=== PATIENT | female | born 1945 | race Caucasian/White ===

== ENCOUNTER 2020-06-08 12:15 | Inpatient (IN) | payer MEDICARE, OTHER, SELFPAY ==
[2020-06-08] VITALS (13 sets, daily range): BP systolic 93–116; BP diastolic 63–78; PULSE 80–108; RESP 18–25; TEMP 36.5–36.6; O2SAT 90–100; BMI 30.4
--- NOTE | ~2020-06-08 | XR_ITS ---
EXAMINATION: XR chest 1V portable DATE: 06/08/2020 13:19 INDICATION: Shortness of breath. TECHNIQUE: A single frontal view of the chest was obtained. COMPARISON: Chest 2 views 11/25/18, chest CT 11/25/2018 FINDINGS: There is mild atelectasis in the lower lung zones. No pleural effusion or pneumothorax. Car diomegaly is noted. IMPRESSION: 1. Mild atelectasis in the lower lung zones. 2. Cardiomegaly. Reviewed, dictated and finalized at location A.
--- NOTE | ~2020-06-08 | CT_ITS ---
EXAMINATION: CTA chest PE protocol DATE: 06/08/2020 14:29 INDICATION: Shortness of breath TECHNIQUE: Computed tomography (CT) pulmonary angiogram of the chest was performed with 100 mL Omnipa que-350 intravenous contrast. Additional 3D reconstructions utilizing coronal maximum intensity proje ction (MIP) were performed. Automated exposure control and iterative reconstruction technique were em ployed. The dose-length product was 375.92 mGy-cm. COMPARISON: 11/25/2018 and 03/09/2017 FINDINGS: Excellent contrast opacification of the pulmonary arteries. There is mild streak artifact from dense contrast in the superior vena cava and right atrium. Mild scattered respiratory motion artifact which does not significantly limit evaluation. No pulmonary embolism. Moderate emphysema. There are a few scattered bilateral calcified pulmonary nodules along with calcified mediastinal and right hilar lymp h nodes, a few hepatic and numerous splenic calcified, all consistent with old granulomatous disease. No interval change in multiple noncalcified subpleural predominant pulmonary nodules in both lungs, the largest measuring 11 mm in the right middle lobe, 10 mm in the left lower lobe and 9 mm in the ri ght lower lobe. Mild smooth septal line thickening at the lung bases consistent with mild pulmonary e kt. No pneumonia, pleural effusion or pneumothorax. Small sliding-type hiatal hernia. Heart size is normal. Atherosclerotic coronary artery calcification. No pericardial effusion. No interval change i n mildly enlarged noncalcified right hilar lymph nodes consistent with chronic reactive lymphadenopat hy. Surgical clip in the right upper quadrant therapeutic dropped clip related to prior cholecystecto my. There are bridging osteophytes at multiple levels in the spine, consistent with diffuse idiopathi c skeletal hyperostosis (DISH). IMPRESSION: 1. No pulmonary embolism. 2. Moderate emphysema. 3. Mild pulmonary edema. 4. No interval change in multiple chronic calcified and noncalcified pulmonary nodules consistent wit h old granulomatous disease. Reviewed, dictated and finalized at location B. IMPRESSION: 1. No pulmonary embolism. 2. Moderate emphysema. 3. Mild pulmonary edema. 4. No interval change in multiple chronic calcified and noncalcified pulmonary nodules consistent with old granulomatous disease.
--- NOTE | 2020-06-08 12:28 | ECG_ITS ---
Measurements Intervals [place] Rate: 94 P: 85 PA: 257 QRS: 103 QRSD: 81 T: 4 QT: 355 QTc: 444 Interpretive Statements SINUS RHYTHM WITH FIRST DEGREE AV BLOCK RIGHT AXIS DEVIATION NONSPECIFIC ST & T-WAVE ABNORMALITY- ANT/INF LEADS BASELINE ARTIFACT- I, II, III, AVR, AVL, AVF, V1, V3, V6 ABNORMAL ECG Electronically Signed On 06-12-2020 8:47:08 TRAVEL REGISTERED NURSE NICU by Chaka Alonzo D.O.
--- NOTE | 2020-06-08 12:29 | ED.GENADULT ---
HPI - General Adult General Chief complaint: Shortness of Breath/Dyspnea Stated complaint: DIFFICULTY BREATHING Time Seen by Provider: 06/08/20 12:25 Source: patient History of Present Illness HPI narrative: Patient is a 75 y/o female complaining of severe worsening SOB today. She states that Neb relieved her SOB slightly. She has some cough. She has no fever, chills or chest pain. She is normally on 6 L home O2. EMS reports that her sat was in 60s while on 6 L O2 when they arrived. She was placed on NRB. She states that she does not want intubation in the event of respiratory failure. She states that she was told by her director erp that she would never get off the vent. She has been diagnosed with COPD, PAH and autoimmune ILD by pulmonology at [facility]. Related Data Home Medications Medication Instructions Recorded Confirmed albuterol sulfate 90 mcg/actuation 2 inhalation INHALATION Q4-6H PRN 03/07/20 06/08/20 aerosol inhaler gm famotidine 20 mg tablet 20 mg PO BID tablet 03/07/20 06/08/20 tadalafil (pulm. hypertension) 20 40 mg PO DAILY tablet 03/07/20 06/08/20 mg tablet (pulmonary hypertension) acetaminophen 500 mg capsule 500 mg PO Q6H PRN 03/08/20 06/08/20 furosemide 20 mg tablet 40 mg PO DAILY 03/08/20 06/08/20 atorvastatin 10 mg PO HS 06/08/20 06/08/20 macitentan [Opsumit] 10 mg PO DAILY 06/08/20 06/08/20 multivitamin with iron [Daily 1 tablet PO DAILY 06/08/20 06/08/20 Multi-Vitamin W/Iron] treprostinil 1 inhalation INHALATION QID 06/08/20 06/08/20 umeclidinium-vilanterol [Anoro 1 inh INHALATION DAILY 06/08/20 06/08/20 Ellipta] Allergies Allergy/AdvReac Type Severity Reaction Status Date / Time codeine AdvReac Unknown Nausea Verified 06/08/20 12:34 adhesive tape AdvReac Rash Verified 06/08/20 12:34 Review of Systems Constitutional: Constitutional: Denies chills, Denies fever(s), Denies headache(s) and Denies weakness Eyes: Eyes: Denies blurry vision ENT: Denies headache(s) and Denies neck pain Cardiovascular: Cardiovascular: Denies chest pain and Reports dyspnea Respiratory: Respiratory: Reports cough and Reports dyspnea Gastrointestinal: Gastrointestinal: Denies abdominal pain, Denies diarrhea, Denies nausea and Denies vomiting Genitourinary: Genitourinary: Denies hematuria and Denies dysuria Musculoskeletal: Musculoskeletal: Denies back pain and Denies neck pain Neurologic: Denies headache(s) and Denies weakness PMFSH Past Medical History Medical History Brain aneurysm (~1991) COPD (chronic obstructive pulmonary disease) Dyslipidemia GERD without esophagitis History of renal stone Hypothyroidism (acquired) Incisional hernia Pancreatitis (~05/2017) Pulmonary hypertension Unspecified osteoarthritis, unspecified site Surgical History Surgical History History of cholecystectomy History of knee replacement (~1990) partial left knee replacement - 1990 History of removal of calculus of renal pelvis through percutaneous nephrostomy 03/2019 Hx of adenoidectomy right - 2009 Hx of cerebral aneurysm repair 1992 Hx of total adrenalectomy Family History Family History (Updated 06/08/20 @ 18:10 by Muriel Page RN) Mother Acute myocardial infarction Father Acute myocardial infarction Sibling Acute myocardial infarction Sibling Cerebrovascular accident Sibling History of blood clots Social History Social History Smoking packs per day: 1 Smoking cigarettes per day: 20.0 Smoking status: Former smoker Smoking end date: 08/11/13 Alcohol intake: never Substance use: never Substance use type: does not use Gender identity (if verbalized by the patient): Female Spiritual care concerns: No Exam Const: General: no acute distress and well developed Orientation/consciousness: oriented to person, orie
[2020-06-08 12:55] LABS: Alveolar/Arterial O2 Gradient 641.9 mmHg; Base Excess ABG -0.7 mEq/l (+/-2.0); Fractional Inspired Oxygen 100 %; HCO3 ABG 23.3 mEq/l (22.0-26.0); Oxygen Content ABG 10.9 %vol (16.0-22.0); Oxyhemoglobin 63.8 % THb (90.0-100.0); PCO2 ABG 36.2 mmHg (35.0-45.0); PO2 FiO2 Ratio Arterial Blood 0.35 %; Total Hemoglobin 12.2 g/dL (12.0-18.0); pH ABG 7.427 (7.350-7.450)
[2020-06-08 13:00] LABS: PO2 ABG 34.9 mmHg (80.0-100.0)
[2020-06-08 13:01] LABS: Device NON-REBREATHER MASK; Modified Allen's Test Pass; Site Drawn LEFT RADIAL
[2020-06-08 13:02] LABS: Basophils Percent Auto 0.3 % (0.2-1.2); Eosinophils Absolute Auto 0.1 K/mm3 (0-0.3); Eosinophils Percent Auto 1.2 % (0-4.4); Hematocrit 35.2 % (37.0-47.0); Hemoglobin 11.3 g/dL (12.0-15.0); Immature Granulocyte Absolute 0.03 K/mm3 (0.00-0.031); Immature Granulocyte Percent A 0.4 % (0-0.5); Lymphocytes Absolute Auto 1.23 K/mm3 (0.9-3.2); Lymphocytes Percent Auto 18.4 % (18.3-44.2); Mean Corpuscular HGB Conc 32.1 g/dl (32-36); Mean Corpuscular Volume 96.4 fl (80-100); Mean Platelet Volume 10.7 fl (7.4-10.4); Monocytes Absolute Auto 0.6 K/mm3 (0.1-0.6); Monocytes Percent Auto 8.7 % (2.6-8.5); Neutrophils Absolute Auto 4.8 K/mm3 (1.3-6.7); Platelet Count Result 159 k/mm3 (150-375); Red Blood Count 3.65 M/mm3 (4.2-5.4); Red Cell Distribution Width 14.2 % (11.5-14.5); White Blood Count 6.7 K/mm3 (4.5-10.0)
[2020-06-08 13:14] LABS: Alanine Aminotransferase 11 U/L (4-35); Albumin Level 3.7 g/dL (3.5-5.1); Alkaline Phosphatase 79 U/L (38-126); Anion Gap 10 mmol/L (8-16); Aspartate Amino Transferase 19 U/L (14-36); Bilirubin,Total 0.4 mg/dL (0.2-1.3); Blood Urea Nitrogen 17 mg/dL (7-17); Calcium 8.5 mg/dL (8.4-10.2); Carbon Dioxide 28 mmol/L (22-30); Chloride 104 mmol/L (98-107); Estimated CRCL calculation 43 ml/min; Estimated Glomerular Filt Rate 48; Glucose 110 mg/dL (65-105); Potassium 3.4 mmol/L (3.4-5.0); Sodium 142 mmol/L (137-145)
[2020-06-08 13:26] LABS: NT Pro B Type Natriuretic Pept 3220 PG/ML (5-100)
[2020-06-08] MEDS: methylPREDNISolone SOD SUCC 125 MG VIAL IV PUSH (15:23)
[2020-06-08 16:26] LABS: Troponin I 0.034 ng/mL (0.000-0.034)
--- NOTE | 2020-06-08 17:27 | PC.NURSE ---
This patient, Alicia Dia, was admitted to IMU Room 231-01. Patient/family oriented to hospital policies and general routines including ID bracelet, bed and alarms, visiting hours, pain management, procedures, bathroom and other care routines, personal items, smoking policy, room service/diet, and visiting hours. Information on how to activate the Rapid Response Team has been discussed. Patient/Family are encouraged to report perceived risks to care and to ask questions if they do not understand what they are told or what they should do.
[2020-06-08] MEDS: WATER FOR IRRIGATION, STERILE 1,000 ML BOTTLE 1000 ML (17:40)
[2020-06-08 19:41] LABS: Troponin I 0.035 ng/mL (0.000-0.034)
--- NOTE | 2020-06-08 20:00 | PM.IMHP ---
H&P: HPI History of Present Illness Date/Time: 06/08/20 20:00 Chief complaint: Shortness of breath. Narrative: Alicia Dia is a very pleasant 75-year-old female with pulmonary hypertension, interstitial lung disease, chronic obstructive pulmonary disease, and chronic respiratory failure on 6 L nasal cannula who presented to the emergency department earlier today via EMS from home for evaluation of shortness of breath. At baseline she is able to perform tasks at home if she remain seated (for example she enjoys sewing and quilting), but does admit that she will have to rest between 3 to 4 minutes to recover after ambulating from 1 room to the next. On her usual 6 L her SpO2 is typically in the high 70s to the low-mid 80s ?and my insurance representative is well aware of that.? Over the past 3 days or so she notes progressive shortness of breath to the point where she is short of breath simply sitting down. Not long prior to arrival today she checked her O2 saturation, noted that it was 47% on her 6 L, and this caused her a lot of anxiety which in turn made her shortness of breath worse. IV Solu-Medrol and nebulizer given emergency department has helped her subjective feelings of shortness of breath, and she has no significant complaints at this time. She denies fever, chills, sweats, cold and flu symptoms (she has a chronic morning cough which is unchanged) chest pain, pleuritic pain, lower extremity edema, nausea, and vomiting. No dysphagia or concerns of aspiration. Review of Systems Review of Systems: Narrative: Twelve systems were reviewed with pertinent positives and negatives as per HPI. She reports feeling a bit ?fuzzy? this morning when her oxygen saturations were in the 40s. She denies overt confusion. No lightheadedness or dizziness. She denies wheezing. She has a chronic morning cough which is unchanged. No recent travel or sick contacts. Except as documented, all other systems were reviewed and are negative. [facility] Past Medical History Medical History (Updated 06/08/20 @ 21:01 by Ingrid Catalan PA-C) Adrenal adenoma Status post resection. Anemia With history of blood transfusion. Brain aneurysm (~1991) Status post craniotomy and coiling. Chronic kidney disease, stage 3 Baseline creatinine ranges between 1.2 and 1.30. Chronic obstructive pulmonary disease Chronic respiratory failure with hypoxia On 6 L nasal cannula. Deep venous thrombosis Dyslipidemia GERD without esophagitis History of renal stone Hypothyroidism Incisional hernia Interstitial lung disease Osteoarthritis Pancreatitis (~05/2017) Pulmonary hypertension Surgical History Surgical History (Updated 06/08/20 @ 20:51 by Ingrid Catalan PA-C) History of cardiac catheterization History of cataract extraction History of cerebral aneurysm repair (~1992) History of cholecystectomy History of knee replacement (~1990) Partial left knee replacement. History of removal of calculus of renal pelvis through percutaneous nephrostomy (~03/2019) History of right breast biopsy History of tonsillectomy History of total adrenalectomy Right adrenalectomy with pathology demonstrating a benign adrenal adenoma. History of tubal ligation Family History Family History Mother Acute myocardial infarction Father Acute myocardial infarction Sibling Acute myocardial infarction Sibling Cerebrovascular accident Sibling History of blood clots Son Bladder cancer Social History Social History (Updated 06/08/20 @ 20:54 by Ingrid Catalan PA-C) Social History: Surrogate decision maker: Jagdish Dia, spouse. Code status: Do not resuscitate. Smoking packs per day: 1 Smoking cigarettes per day: 20.0 Years smoked: 51 Smoking pack-years: 51.00 Smoking status: Former smoker Smoking end date: 08/11/13 Alcohol intake: never Substance use: never Substance use type: does not use Add
[2020-06-08] MEDS: ATORVASTATIN 10 MG TABLET PO (22:47)
[2020-06-08] MEDS: guaiFENesin 12 HR 600 MG TABCR PO (22:48)
[2020-06-08] MEDS: methylPREDNISolone SOD SUCC 125 MG VIAL 60 MG IV PUSH (22:48)
[2020-06-09] VITALS (23 sets, daily range): BP systolic 97–148; BP diastolic 42–106; PULSE 74–104; RESP 18–26; TEMP 36.2–36.9; O2SAT 87–97
[2020-06-09] MEDS: IPRATROPIUM BR 0.02% INH SOLN 0.5 MG/2.5 ML VIAL INHALATION ×4 (03:06→19:39)
[2020-06-09] MEDS: ALBUTEROL SULFATE NEB 2.5 MG/0.5 ML INH 5 MG INHALATION ×4 (03:06→19:39)
[2020-06-09 04:59] LABS: Hemoglobin 10.5 g/dL (12.0-15.0); Mean Corpuscular HGB Conc 32.8 g/dl (32-36); Mean Corpuscular Hemoglobin 30.4 pg (26-34); Mean Corpuscular Volume 92.8 fl (80-100); Mean Platelet Volume 10.9 fl (7.4-10.4); Platelet Count Result 139 k/mm3 (150-375); Red Blood Count 3.45 M/mm3 (4.2-5.4); Red Cell Distribution Width 14.1 % (11.5-14.5); White Blood Count 4.4 K/mm3 (4.5-10.0)
[2020-06-09 05:12] LABS: Anion Gap 6 mmol/L (8-16); Blood Urea Nitrogen 19 mg/dL (7-17); Calcium 8.6 mg/dL (8.4-10.2); Carbon Dioxide 27 mmol/L (22-30); Chloride 106 mmol/L (98-107); Estimated CRCL calculation 52 ml/min; Estimated Glomerular Filt Rate > 60; Glucose 182 mg/dL (65-105); Magnesium 1.9 mg/dL (1.6-2.3); Potassium 4.1 mmol/L (3.4-5.0); Sodium 139 mmol/L (137-145)
[2020-06-09 06:08] LABS: Thyroid Stimulating Hormone Reflex 0.032 uIU/mL (0.465-4.68)
[2020-06-09] MEDS: LEVOTHYROXINE SODIUM 75 MCG TABLET PO (06:22)
[2020-06-09] MEDS: methylPREDNISolone SOD SUCC 125 MG VIAL 60 MG IV PUSH ×3 (06:22→17:49)
[2020-06-09] MEDS: LEVOTHYROXINE SODIUM 100 MCG TABLET PO (06:22)
[2020-06-09 07:07] LABS: Free T4 Free Thyroxine Reflex 2.09 ng/dL (0.78-2.19)
[2020-06-09] MEDS: FAMOTIDINE 20 MG TABLET PO ×2 (09:21→17:50)
[2020-06-09] MEDS: FUROSEMIDE 40 MG TABLET PO (09:22)
[2020-06-09] MEDS: THERAPEUTIC MULTIVITAMINS/MINERALS TAB (*BKC) 1 TABLET PO (09:22)
[2020-06-09] MEDS: guaiFENesin 12 HR 600 MG TABCR PO ×2 (09:22→20:33)
[2020-06-09] MEDS: ENOXAPARIN 40 MG/0.4 ML SYRINGE SUB-Q (09:22)
--- NOTE | 2020-06-09 10:16 | PHAR ---
Home meds verified: Tadalafil 20mg take 2 tabs PO daily Opsumit 10mg take 1 tab PO daily Anoro Ellipta inhale 1 puff by mouth daily Tyvaso inhalation solution & nebulizer
--- NOTE | 2020-06-09 14:31 | PM.IMPN ---
Progress Note: A&P Assessment and Plan (1) Acute and chronic respiratory failure with hypoxia: Code(s): J96.21 - Acute and chronic respiratory failure with hypoxia Status: Acute Assessment and Plan: 06/09/20 14:31 patient is 75-year-old female with severe COPD, chronic respiratory failure and autoimmune interstitial lung disease on home 6 L oxygen apparently patient became quite hypoxic and was desaturating EMS was called and her O2 sat was 60% on 6 L oxygen patient was brought to the emergency department for further evaluation, patient was started on Solu-Medrol, was given neb which did improve her symptoms and placed on high-flow oxygen, will add Pulmicort to her regimen, today patient states is feeling little better compared to when she arrived denies any chest pain shortness of breath palpitation fever or chills, will consult tennis director for further recommendation, will continue to monitor and further recommendation to follow (2) COPD exacerbation: Code(s): J44.1 - Chronic obstructive pulmonary disease with (acute) exacerbation Status: Acute Assessment and Plan: plan is above (3) Interstitial lung disease: Code(s): J84.9 - Interstitial pulmonary disease, unspecified Status: Inactive Assessment and Plan: will consult tennis director for further recommendation (4) Hypothyroidism: Code(s): E03.9 - Hypothyroidism, unspecified Status: Inactive Assessment and Plan: will continue home regimen and (5) Dyslipidemia: Code(s): E78.5 - Hyperlipidemia, unspecified Status: Acute Assessment and Plan: will continue home regimen and monitor (6) Chronic kidney disease, stage 3: Code(s): N18.30 - Chronic kidney disease, stage 3 unspecified Status: Acute Assessment and Plan: most likely acute on chronic will gently hydrate the patient (7) Anemia: Code(s): D64.9 - Anemia, unspecified Status: Inactive Assessment and Plan: most likely anemia of chronic disease and stable Subjective Date/time seen: 06/09/20 14:31 patient is 75-year-old female with severe COPD, chronic respiratory failure and autoimmune interstitial lung disease on home 6 L oxygen apparently patient became quite hypoxic and was desaturating EMS was called and her O2 sat was 60% on 6 L oxygen patient was brought to the emergency department for further evaluation, patient was started on Solu-Medrol, was given neb which did improve her symptoms and placed on high-flow oxygen, will add Pulmicort to her regimen, today patient states is feeling little better compared to when she arrived denies any chest pain shortness of breath palpitation fever or chills, will consult tennis director for further recommendation, will continue to monitor and further recommendation to follow Review of Systems Review of Systems: All systems reviewed & are unremarkable except as noted in HPI and below Objective Data Vital Signs Vital Signs: Vital Signs - 24 hr 06/08/20 15:37 06/08/20 15:50 06/08/20 16:00 Temperature Pulse Rate 88 84 84 Respiratory Rate 21 H 25 H 23 H Blood Pressure Pulse Oximetry 99 100 99 06/08/20 16:01 06/08/20 16:31 06/08/20 17:10 Temperature Pulse Rate 87 93 80 Respiratory Rate 24 H 25 H 20 Blood Pressure 115/67 110/78 Pulse Oximetry 100 100 96 06/08/20 17:32 06/08/20 18:00 06/08/20 19:19 Temperature 97.7 F 97.7 F 97.9 F Pulse Rate 96 96 108 H Respiratory Rate 18 18 18 Blood Pressure 116/63 116/63 93/69 L Pulse Oximetry 99 99 90 06/08/20 20:00 06/08/20 21:47 06/08/20 23:05 Temperature Pulse Rate 90 92 92 Respiratory Rate 20 Blood Pressure Pulse Oximetry 94 06/09/20 00:00 06/09/20 00:38 06/09/20 01:37 Temperature 97.9 F Pulse Rate 93 94 86 Respiratory Rate 18 Blood Pressure 97/46 L Pulse Oximetry 95 93 06/09/20 03:06 06/09/20 03:30 06/09/20 04:00 Temperature Puls
[2020-06-09] MEDS: BUDESONIDE RESPULE NEB 0.5 MG/2 ML AMP INHALATION (19:39)
[2020-06-09] MEDS: ATORVASTATIN 10 MG TABLET PO (20:33)
[2020-06-09] MEDS: MELATONIN 3 MG TABLET PO (20:33)
--- NOTE | 2020-06-09 22:35 | PM.CNPUL ---
Assessment and Plan Assessment and plan (1) COPD exacerbation: Code(s): J44.1 - Chronic obstructive pulmonary disease with (acute) exacerbation Status: Acute Assessment and Plan: - will add ceftriaxone and azithromycin - decrease solumedrol to 40 mg IV Q6h - continue duonebs Q6h - continue pulmicort Q12h (2) Acute and chronic respiratory failure with hypoxia: Code(s): J96.21 - Acute and chronic respiratory failure with hypoxia Status: Acute Assessment and Plan: Will try to wean to Oxyimizer 8-12 liters over next few days. Goal O2 sats are 90-93% (3) ILD (interstitial lung disease): Code(s): J84.9 - Interstitial pulmonary disease, unspecified Status: Acute Assessment and Plan: Likely NSIP from [facility] (4) Pulmonary hypertension: Code(s): I27.20 - Pulmonary hypertension, unspecified Status: Acute Assessment and Plan: Likely the biggest contributor to her hypoxemia. Due to Group 1 and 3 Pulmonary hypertension. Continue Tadalafil, Inhaled Treprostinil and Opsumit. Sometimes oral vasodilators can cause worsening hypoxemia in patients with COPD. If hypoxemia does not improve over the next few days with treatment of COPD exacerbation we may have call her PHTN specialist at [facility] to see which of the these meds maybe weaned off. History of Present Illness History of Present Illness Consult date: 06/09/20 Chief complaint: Shortness of breath. 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 She visited the ER about 2 weeks ago with a UTI, since then she has had a sore throat and cough productive of greenish sputum but no fever, chills, night sweats, hemoptysis, no loss of taste or smell or GI symptoms. Three weeks ago she her pulmonary hypertension specialist who said she was stable and was on Tadalafil, inhaled treprostinil. Opsumit was recently added to improve her 6 minute walk distance in March but she said this did not help. She was admitted with hypoxemic respiratory failure and is currently on high flow 60 liters and 85% with sats of 96%. She has been started on nebulized bronchodilators, systemic steroids yesterday. Review of Systems Review of Systems: All systems reviewed & are unremarkable except as noted in HPI and below [facility] Past Medical History Medical History (Updated 06/08/20 @ 21:01 by Ingrid Catalan PA-C) Adrenal adenoma Status post resection. Anemia With history of blood transfusion. Brain aneurysm (~1991) Status post craniotomy and coiling. Chronic kidney disease, stage 3 Baseline creatinine ranges between 1.2 and 1.30. Chronic obstructive pulmonary disease Chronic respiratory failure with hypoxia On 6 L nasal cannula. Deep venous thrombosis Dyslipidemia GERD without esophagitis History of renal stone Hypothyroidism Incisional hernia Interstitial lung disease Osteoarthritis Pancreatitis (~05/2017) Pulmonary hypertension Surgical History Surgical History (Updated 06/08/20 @ 20:51 by Ingrid Catalan PA-C) History of cardiac catheterization History of cataract extraction History of cerebral aneurysm repair (~1992) History of cholecystectomy History of knee replacement (~1990) Partial left knee replacement. History of removal of calculus of renal pelvis through percutaneous nephrostomy (~03/2019) History of right breast biopsy History of tonsillectomy History of total adrenalectomy Right adrenalectomy with pathology demonstrating a benign adrenal adenoma. History of tubal ligation Family History Family History (Updated 06/08/20 @ 20:54 by Ingrid Catalan PA-C) Mother Acute myocardial infarction Father Acute myocardial infarction Sibling Acute myocardial infarction Sibling Cerebrovascular
[2020-06-09] MEDS: methylPREDNISolone SOD SUCC 40 MG VIAL IV PUSH (23:54)
[2020-06-10] VITALS (30 sets, daily range): BP systolic 100–114; BP diastolic 45–83; PULSE 87–104; RESP 18–24; TEMP 36.1–37.3; O2SAT 87–95
[2020-06-10] MEDS: IPRATROPIUM BR 0.02% INH SOLN 0.5 MG/2.5 ML VIAL INHALATION ×4 (01:43→20:23)
[2020-06-10] MEDS: ALBUTEROL SULFATE NEB 2.5 MG/0.5 ML INH INHALATION ×4 (01:43→20:23)
[2020-06-10 04:44] LABS: Hematocrit 31.6 % (37.0-47.0); Hemoglobin 10.2 g/dL (12.0-15.0); Mean Corpuscular HGB Conc 32.3 g/dl (32-36); Mean Platelet Volume 11.4 fl (7.4-10.4); Platelet Count Result 153 k/mm3 (150-375); Red Blood Count 3.29 M/mm3 (4.2-5.4); Red Cell Distribution Width 14.4 % (11.5-14.5); White Blood Count 9.8 K/mm3 (4.5-10.0)
[2020-06-10 04:59] LABS: Anion Gap 5 mmol/L (8-16); Blood Urea Nitrogen 28 mg/dL (7-17); Calcium 8.9 mg/dL (8.4-10.2); Carbon Dioxide 28 mmol/L (22-30); Chloride 107 mmol/L (98-107); Estimated CRCL calculation 52 ml/min; Estimated Glomerular Filt Rate > 60; Glucose 149 mg/dL (65-105); Potassium 4.1 mmol/L (3.4-5.0); Sodium 140 mmol/L (137-145)
[2020-06-10] MEDS: LEVOTHYROXINE SODIUM 100 MCG TABLET PO (06:11)
[2020-06-10] MEDS: methylPREDNISolone SOD SUCC 40 MG VIAL IV PUSH ×3 (06:11→16:40)
[2020-06-10] MEDS: LEVOTHYROXINE SODIUM 75 MCG TABLET PO (06:11)
[2020-06-10] MEDS: BUDESONIDE RESPULE NEB 0.5 MG/2 ML AMP INHALATION ×2 (08:01→20:23)
[2020-06-10] MEDS: FUROSEMIDE 40 MG TABLET PO (10:26)
[2020-06-10] MEDS: FAMOTIDINE 20 MG TABLET PO ×2 (10:26→16:40)
[2020-06-10] MEDS: THERAPEUTIC MULTIVITAMINS/MINERALS TAB (*BKC) 1 TABLET PO (10:26)
[2020-06-10] MEDS: guaiFENesin 12 HR 600 MG TABCR PO ×2 (10:26→21:14)
[2020-06-10] MEDS: ENOXAPARIN 40 MG/0.4 ML SYRINGE SUB-Q (10:27)
[2020-06-10 11:50] LABS: Alveolar/Arterial O2 Gradient 620.8 mmHg; Base Excess ABG -2.4 mEq/l (+/-2.0); Fractional Inspired Oxygen 100 %; HCO3 ABG 21.9 mEq/l (22.0-26.0); Oxygen Content ABG 15.1 %vol (16.0-22.0); Oxygen Saturation ABG 89.6 % (95.0-100.0); Oxyhemoglobin 87.5 % THb (90.0-100.0); PO2 ABG 56.2 mmHg (80.0-100.0); PO2 FiO2 Ratio Arterial Blood 0.56 %; Total Hemoglobin 12.3 g/dL (12.0-18.0); pH ABG 7.402 (7.350-7.450)
[2020-06-10 11:52] LABS: Modified Allen's Test Pass; Site Drawn RIGHT RADIAL
[2020-06-10 11:53] LABS: Device HIGH FLOW THERAPY
--- NOTE | 2020-06-10 17:08 | PM.IMPN ---
Progress Note: A&P Assessment and Plan (1) Acute and chronic respiratory failure with hypoxia: Code(s): J96.21 - Acute and chronic respiratory failure with hypoxia Status: Acute Assessment and Plan: 06/10/20 17:08 patient is 75-year-old female with severe COPD, chronic respiratory failure and autoimmune interstitial lung disease on home 6 L oxygen apparently patient became quite hypoxic and was desaturating EMS was called and her O2 sat was 60% on 6 L oxygen patient was brought to the emergency department for further evaluation, patient was started on Solu-Medrol, was given neb which did improve her symptoms and placed on high-flow oxygen, added Pulmicort to her regimen, today patient was seen by pulmonology and suspect in addition examination of COPD patient also has severe pulmonary hypertension which is also worsening patient symptoms and recommended to continue on home regimen of Tadalafil, Inhaled Treprostinil and Opsumit, taper her Solu-Medrol to 40 mg q.6, continue DuoNeb and Pulmicort, added azithromycin and Rocephin, today patient states feeling little better breath better denies any fever or chills, will continue to monitor and further recommendation to follow (2) COPD exacerbation: Code(s): J44.1 - Chronic obstructive pulmonary disease with (acute) exacerbation Status: Acute Assessment and Plan: plan is above (3) Interstitial lung disease: Code(s): J84.9 - Interstitial pulmonary disease, unspecified Status: Inactive Assessment and Plan: will consult compressed gas tester for further recommendation (4) Hypothyroidism: Code(s): E03.9 - Hypothyroidism, unspecified Status: Inactive Assessment and Plan: will continue home regimen and (5) Dyslipidemia: Code(s): E78.5 - Hyperlipidemia, unspecified Status: Acute Assessment and Plan: will continue home regimen and monitor (6) Chronic kidney disease, stage 3: Code(s): N18.30 - Chronic kidney disease, stage 3 unspecified Status: Acute Assessment and Plan: most likely acute on chronic will gently hydrate the patient (7) Anemia: Code(s): D64.9 - Anemia, unspecified Status: Inactive Assessment and Plan: most likely anemia of chronic disease and stable Subjective Date/time seen: 06/10/20 17:08 patient is 75-year-old female with severe COPD, chronic respiratory failure and autoimmune interstitial lung disease on home 6 L oxygen apparently patient became quite hypoxic and was desaturating EMS was called and her O2 sat was 60% on 6 L oxygen patient was brought to the emergency department for further evaluation, patient was started on Solu-Medrol, was given neb which did improve her symptoms and placed on high-flow oxygen, added Pulmicort to her regimen, today patient was seen by pulmonology and suspect in addition examination of COPD patient also has severe pulmonary hypertension which is also worsening patient symptoms and recommended to continue on home regimen of Tadalafil, Inhaled Treprostinil and Opsumit, taper her Solu-Medrol to 40 mg q.6, continue DuoNeb and Pulmicort, added azithromycin and Rocephin, today patient states feeling little better breath better denies any fever or chills, will continue to monitor and further recommendation to follow Review of Systems Review of Systems: All systems reviewed & are unremarkable except as noted in HPI and below Exam Narrative: Exam Narrative: elderly frail Patient is comfortable, NAD HEENT: on high-flow oxygen some retraction LUNGS: bilateral poor air entry with harsh breath sound wheezing HEART: RR S1S2 ABD: BS+, Soft and nontender Lower extremities: no edema SKIN: nonjaundiced Neuro: grossly intact. Objective Data Vital Signs Vital Signs: Vital Signs - 24 hr 06/09/20 19:38 06/09/20 19:42 06/09/20 19:46 Temperature 97.1 F L Pulse Rate 99 100 98 Respiratory Rate 20 22 H
[2020-06-10] MEDS: ATORVASTATIN 10 MG TABLET PO (21:14)
[2020-06-10] MEDS: MELATONIN 3 MG TABLET PO (22:19)
[2020-06-11] VITALS (23 sets, daily range): BP systolic 110–123; BP diastolic 58–67; PULSE 72–108; RESP 18–24; TEMP 36.1–37.7; O2SAT 82–96
[2020-06-11] MEDS: methylPREDNISolone SOD SUCC 40 MG VIAL IV PUSH ×4 (00:08→18:05)
[2020-06-11] MEDS: ACETAMINOPHEN 500 MG TABLET PO ×2 (01:57→08:28)
[2020-06-11] MEDS: ALBUTEROL SULFATE NEB 2.5 MG/0.5 ML INH INHALATION ×4 (02:14→20:32)
[2020-06-11] MEDS: IPRATROPIUM BR 0.02% INH SOLN 0.5 MG/2.5 ML VIAL INHALATION ×4 (02:14→20:32)
--- NOTE | 2020-06-11 02:59 | PC.NURSE ---
Daylight Savings Time For Daylight Savings Time Ending in the Fall - Clocks are moved back. For Daylight Savings Time Beginning in the Spring - Clocks are moved ahead. For [facility], the time of change occurs at 0200 hrs. Time is taken from the oil prospecting observer. This entry on the patient's chart recognizes the change in time reflected during documentation. Example: 2 entries for vital signs may be charted for 0200 hrs.
[2020-06-11 05:07] LABS: Hematocrit 32.9 % (37.0-47.0); Hemoglobin 10.5 g/dL (12.0-15.0); Mean Corpuscular HGB Conc 31.9 g/dl (32-36); Mean Corpuscular Hemoglobin 30.7 pg (26-34); Mean Corpuscular Volume 96.2 fl (80-100); Mean Platelet Volume 10.8 fl (7.4-10.4); Platelet Count Result 161 k/mm3 (150-375); Red Blood Count 3.42 M/mm3 (4.2-5.4); Red Cell Distribution Width 14.6 % (11.5-14.5); White Blood Count 9.9 K/mm3 (4.5-10.0)
[2020-06-11 05:20] LABS: Anion Gap 8 mmol/L (8-16); Blood Urea Nitrogen 31 mg/dL (7-17); Calcium 8.7 mg/dL (8.4-10.2); Carbon Dioxide 26 mmol/L (22-30); Chloride 106 mmol/L (98-107); Estimated CRCL calculation 52 ml/min; Estimated Glomerular Filt Rate > 60; Glucose 133 mg/dL (65-105); Potassium 4.6 mmol/L (3.4-5.0); Sodium 140 mmol/L (137-145)
[2020-06-11] MEDS: LEVOTHYROXINE SODIUM 75 MCG TABLET PO (08:27)
[2020-06-11] MEDS: LEVOTHYROXINE SODIUM 100 MCG TABLET PO (08:27)
[2020-06-11] MEDS: FAMOTIDINE 20 MG TABLET PO ×2 (08:29→18:05)
[2020-06-11] MEDS: ENOXAPARIN 40 MG/0.4 ML SYRINGE SUB-Q (08:29)
[2020-06-11] MEDS: FUROSEMIDE 40 MG TABLET PO (08:30)
[2020-06-11] MEDS: guaiFENesin 12 HR 600 MG TABCR PO ×2 (08:30→21:12)
[2020-06-11] MEDS: THERAPEUTIC MULTIVITAMINS/MINERALS TAB (*BKC) 1 TABLET PO (08:30)
[2020-06-11] MEDS: BUDESONIDE RESPULE NEB 0.5 MG/2 ML AMP INHALATION ×2 (08:32→20:32)
--- NOTE | 2020-06-11 09:27 | PM.PNPUL ---
Progress Note: A&P Assessment and Plan (1) COPD exacerbation: Code(s): J44.1 - Chronic obstructive pulmonary disease with (acute) exacerbation Status: Acute Assessment and Plan: Ceftriaxone and Azithromycin added last night for purlent cough decrease solumedrol to 40 mg IV Q6h continue current duoebs Q6 and Pulmicort bid COPD is mild with last FEV1 per wash of > 100% of predicted (2) Acute and chronic respiratory failure with hypoxia: Code(s): J96.21 - Acute and chronic respiratory failure with hypoxia Status: Acute Assessment and Plan: Multifactorial but predominately due to ILD, Pulmonary Hypertension and COPD. PFO less likely contributing (3) ILD (interstitial lung disease): Code(s): J84.9 - Interstitial pulmonary disease, unspecified Status: Acute Assessment and Plan: NSIP, undifferentiated with subpleural benign pulmonary nodules (4) Pulmonary hypertension: Code(s): I27.20 - Pulmonary hypertension, unspecified Status: Acute Assessment and Plan: Group 1 and 3 PHTN currently being treated at [facility] with Tada Time Spent With Patient Time with patient: 15 - 25 minutes Subjective Date/time seen: 06/10/20 09:27 Interval history: Still having cough, antibiotics started last night. She feels well and is asking to go home but her oxygen demand is still very high Review of Systems Review of Systems: All systems reviewed & are unremarkable except as noted in HPI and below Exam Const: General: cooperative, healthy appearing, comfortable, no acute distress, well developed, alert, awake, Physically active and acute distress Nutritional Appearance: average body habitus Orientation/consciousness: oriented to person, oriented to place, oriented to time and patient oriented x3 Limitations: physical limitations HENMT: Head: normal to inspection, normocephalic and atraumatic Eyes: General: appearance normal, both eyes and all related structures Neck: Neck: trachea midline and supple Resp: Effort & Inspection: normal respiratory effort and able to speak in complete sentences Auscultation: crackles (bases ) bilateral and diminished lung sounds Cardio: Jugular venous distension: no JVD Rate: regular rate Rhythm: regular rhythm Heart sounds: S1 normal heart sound present and S2 normal heart sound present GI: Inspection: normal to inspection Skin: General skin exam: normal color and no rashes or lesions noted Neuro: General: oriented to person, oriented to place, oriented to time and patient oriented x3 Cognition (Neuro): normal cognition Speech: normal speech Gait exam (Neuro): Normal gait present Psych: Appearance: grossly normal and well kempt Mental Status: mental status grossly normal Objective Data Vital Signs Vital Signs: Vital Signs - 24 hr 06/10/20 12:00 06/10/20 12:55 06/10/20 13:35 Temperature 36.1 C L Pulse Rate 95 100 101 H Respiratory Rate 20 20 Blood Pressure 114/83 Pulse Oximetry 87 L 06/10/20 13:48 06/10/20 14:00 06/10/20 16:00 Temperature Pulse Rate 101 H 87 89 Respiratory Rate 20 Blood Pressure Pulse Oximetry 06/10/20 17:08 06/10/20 18:00 06/10/20 19:56 Temperature 36.3 C L 36.3 C L Pulse Rate 89 97 89 Respiratory Rate 20 20 Blood Pressure 105/49 L 100/45 L Pulse Oximetry 91 94 06/10/20 20:00 06/10/20 20:25 06/10/20 20:27 Temperature Pulse Rate 97 88 Respiratory Rate 20 18 Blood Pressure Pulse Oximetry 94 92 06/10/20 20:42 06/10/20 22:00 06/10/20 23:57 Temperature 36.4 C Pulse Rate 93 90 87 Respiratory Rate 18 20 Blood Pressure 107/53 L Pulse Oximetry 91 06/11/20 00:00 06/11/20 01:38 CASHIER HOST/HOSTESS 06/11/20 02:15 Temperature Pulse Rate 86 85 83 Respiratory Rate 20 18 Blood Pressure Pulse Oximetry 91 06/11/20 04:00 06/11/20 05:39 06/11/20 08:00 Temperature 36.1 C L 36.4 C Pulse Rate 75 80 84 Respiratory Rate 22 H 22 H Blood Pressure 1
--- NOTE | 2020-06-11 10:31 | PCRCNOTE ---
Window of time for administration has passed. See next scheduled administration.
--- NOTE | 2020-06-11 10:39 | PM.PNPUL ---
Progress Note: A&P Assessment and Plan (1) COPD exacerbation: Code(s): J44.1 - Chronic obstructive pulmonary disease with (acute) exacerbation Status: Acute Assessment and Plan: Ceftriaxone and Azithromycin to continue. Purlent cough is resolving. continue solumedrol to 40 mg IV Q6h continue current duoebs Q6 and Pulmicort bid COPD is mild with last FEV1 per wash of > 100% of predicted (2) Acute and chronic respiratory failure with hypoxia: Code(s): J96.21 - Acute and chronic respiratory failure with hypoxia Status: Acute Assessment and Plan: Multifactorial but predominately due to ILD, Pulmonary Hypertension and COPD. PFO less likely contributing (3) ILD (interstitial lung disease): Code(s): J84.9 - Interstitial pulmonary disease, unspecified Status: Acute Assessment and Plan: NSIP, undifferentiated with subpleural benign appearing pulmonary nodules (4) Pulmonary hypertension: Code(s): I27.20 - Pulmonary hypertension, unspecified Status: Acute Assessment and Plan: Group 1 and 3 PHTN currently being treated at [facility] with Tadafil, Opsumit and Nebulized Treprostinil. She has not been getting her Treprostinil. I've reorder it this morning at 54 mcg Nebulized QID. I've spoken to pharmacy and her nurse. The patient has the medication here with her. If oxygen demand does not improved over next 24 hours, she should be transferred to [facility] for higher level of care. Subjective Date/time seen: 06/11/20 10:39 Interval history: Still very hypoxic but in not distress. Her Treprostinil was not restarted. I've ordered this morning and spoke to her nurse and pharmacy. This should hopefully help decrease oxygen demand. Review of Systems Review of Systems: All systems reviewed & are unremarkable except as noted in HPI and below Exam Const: General: cooperative, healthy appearing, comfortable, no acute distress, well developed, alert, awake, Physically active and acute distress Nutritional Appearance: average body habitus Orientation/consciousness: oriented to person, oriented to place, oriented to time and patient oriented x3 Limitations: physical limitations HENMT: Head: normal to inspection, normocephalic and atraumatic Eyes: General: appearance normal, both eyes and all related structures Neck: Neck: trachea midline and supple Resp: Effort & Inspection: normal respiratory effort and able to speak in complete sentences Auscultation: crackles (bases ) bilateral and diminished lung sounds Cardio: Jugular venous distension: no JVD Rate: regular rate Rhythm: regular rhythm Heart sounds: S1 normal heart sound present and S2 normal heart sound present GI: Inspection: normal to inspection Skin: General skin exam: normal color and no rashes or lesions noted Neuro: General: oriented to person, oriented to place, oriented to time and patient oriented x3 Cognition (Neuro): normal cognition Speech: normal speech Gait exam (Neuro): Normal gait present Psych: Appearance: grossly normal and well kempt Mental Status: mental status grossly normal Objective Data Vital Signs Vital Signs: Vital Signs - 24 hr 06/10/20 12:00 06/10/20 12:55 06/10/20 13:35 Temperature 36.1 C L Pulse Rate 95 100 101 H Respiratory Rate 20 20 Blood Pressure 114/83 Pulse Oximetry 87 L 06/10/20 13:48 06/10/20 14:00 06/10/20 16:00 Temperature Pulse Rate 101 H 87 89 Respiratory Rate 20 Blood Pressure Pulse Oximetry 06/10/20 17:08 06/10/20 18:00 06/10/20 19:56 Temperature 36.3 C L 36.3 C L Pulse Rate 89 97 89 Respiratory Rate 20 20 Blood Pressure 105/49 L 100/45 L Pulse Oximetry 91 94 06/10/20 20:00 06/10/20 20:25 06/10/20 20:27 Temperature Pulse Rate 97 88 Respiratory Rate 20 18 Blood Pressure Pulse Oximetry 94 92 06/10/20 20:42 06/10/20 22:00 06/10/20 23:57 Temperature 36.4 C Pulse Rate 93 90 87 Respiratory Rate 18
[2020-06-11] MEDS: DOCUSATE SODIUM 100 MG CAPSULE PO ×2 (11:45→21:11)
[2020-06-11 13:07] LABS: Alveolar/Arterial O2 Gradient 618.6 mmHg; Base Excess ABG 0.9 mEq/l (+/-2.0); Carboxyhemoglobin 0.1 % THb (0-2.0); Fractional Inspired Oxygen 100 %; HCO3 ABG 25.9 mEq/l (22.0-26.0); Methemoglobin ABG 0.3 %THb (0-1.5); Oxygen Content ABG 15.6 %vol (16.0-22.0); Oxyhemoglobin 85.5 % THb (90.0-100.0); PCO2 ABG 42.4 mmHg (35.0-45.0); PO2 FiO2 Ratio Arterial Blood 0.52 %; Reduced Hemoglobin 14.1 %THb (0-5.0); pH ABG 7.403 (7.350-7.450)
[2020-06-11 13:08] LABS: Modified Allen's Test Pass; Oxygen Saturation ABG 86.9 % (95.0-100.0); Site Drawn LEFT RADIAL
[2020-06-11 13:09] LABS: Device HIGH FLOW THERAPY
--- NOTE | 2020-06-11 14:13 | PM.TDS ---
Transfer Discharge Sum: Prov Provider Date of admission: 06/08/20 16:40 Primary care physician: Eliana Lazar MD Admitting clinician: Nnamdi Graves MD Consults: 06/09/20 Consult to Physician Routine Comment: SPOKE WITH DR. MONTEMAYOR Consulting Provider: J Carlos Montemayor body recall instructor/MD group to consult: pulmonolgy Reason for consultation: copd/pulmonary htn Has provider been notified: Yes DS: Admitting Diagnosis Admitting Diagnosis Admitting Diagnosis: Shortness of breath. DS: Discharge Diagnosis Discharge Diagnosis (1) Acute and chronic respiratory failure with hypoxia: Code(s): J96.21 - Acute and chronic respiratory failure with hypoxia Status: Acute Assessment and Plan: 06/10/20 17:08 patient is 75-year-old female with severe COPD, chronic respiratory failure and autoimmune interstitial lung disease on home 6 L oxygen apparently patient became quite hypoxic and was desaturating EMS was called and her O2 sat was 60% on 6 L oxygen patient was brought to the emergency department for further evaluation, patient was started on Solu-Medrol, was given neb which did improve her symptoms and placed on high-flow oxygen, added Pulmicort to her regimen, today patient was seen by pulmonology and suspect in addition examination of COPD patient also has severe pulmonary hypertension which is also worsening patient symptoms and recommended to continue on home regimen of Tadalafil, Inhaled Treprostinil and Opsumit, taper her Solu-Medrol to 40 mg q.6, continue DuoNeb and Pulmicort, added azithromycin and Rocephin, today patient states feeling little better breath better denies any fever or chills, will continue to monitor and further recommendation to follow (2) COPD exacerbation: Code(s): J44.1 - Chronic obstructive pulmonary disease with (acute) exacerbation Status: Acute Assessment and Plan: plan is above (3) Interstitial lung disease: Code(s): J84.9 - Interstitial pulmonary disease, unspecified Status: Inactive Assessment and Plan: will consult wiping rag washer for further recommendation (4) Hypothyroidism: Code(s): E03.9 - Hypothyroidism, unspecified Status: Inactive Assessment and Plan: will continue home regimen and (5) Dyslipidemia: Code(s): E78.5 - Hyperlipidemia, unspecified Status: Acute Assessment and Plan: will continue home regimen and monitor (6) Chronic kidney disease, stage 3: Code(s): N18.30 - Chronic kidney disease, stage 3 unspecified Status: Acute Assessment and Plan: most likely acute on chronic will gently hydrate the patient (7) Anemia: Code(s): D64.9 - Anemia, unspecified Status: Inactive Assessment and Plan: most likely anemia of chronic disease and stable Transfer Discharge Sum: Med Medications Active and Home Medications: Home Medications albuterol sulfate 90 mcg/actuation aerosol inhaler 2 inhalation INHALATION Q4-6H PRN gm 03/07/20 [History Confirmed 06/08/20] famotidine 20 mg tablet 20 mg PO BID tablet 03/07/20 [History Confirmed 06/08/20] tadalafil (pulm. hypertension) 20 mg tablet (pulmonary hypertension) 40 mg PO DAILY tablet 03/07/20 [History Confirmed 06/08/20] acetaminophen 500 mg capsule 500 mg PO Q6H PRN 03/08/20 [History Confirmed 06/08/20] furosemide 20 mg tablet 40 mg PO DAILY 03/08/20 [History Confirmed 06/08/20] levothyroxine 175 mcg tablet 175 mcg PO QAM #60 tablet 04/26/20 [Rx Confirmed 06/08/20] atorvastatin 10 mg PO HS 06/08/20 [History Confirmed 06/08/20] macitentan [Opsumit] 10 mg PO DAILY 06/08/20 [History Confirmed 06/08/20] multivitamin with iron [Daily Multi-Vitamin W/Iron] 1 tablet PO DAILY 06/08/20 [History Confirmed 06/08/20] treprostinil 1 inhalation INHALATION QID 06/08/20 [History Confirmed 06/08/20] umeclidinium-vilanterol [Anoro Ellipta] 1 inh INHALATION DAILY 06/08/20 [History Confirmed 06/08/20] A
--- NOTE | 2020-06-11 17:00 | PC.NURSE ---
Patient's oxygen saturation drops down from varying percentages, as low as 59% upon exertion and/or removal of the supplemented 15L/Non-rebreather over her Airvo with settings at 60L and 90% FiO2. Test Skein Winder and hospitalist notified of patient condition. Received orders to initiate transfer to outside facility. Patient and family notified. Hospitalist notified receiving facility.
[2020-06-11] MEDS: ATORVASTATIN 10 MG TABLET PO (21:11)
[2020-06-11] MEDS: MELATONIN 3 MG TABLET PO (22:07)
[2020-06-12] VITALS (23 sets, daily range): BP systolic 107–130; BP diastolic 53–60; PULSE 81–104; RESP 14–28; TEMP 36.3–36.6; O2SAT 86–96
[2020-06-12] MEDS: methylPREDNISolone SOD SUCC 40 MG VIAL IV PUSH ×4 (00:16→18:07)
[2020-06-12] MEDS: IPRATROPIUM BR 0.02% INH SOLN 0.5 MG/2.5 ML VIAL INHALATION ×4 (02:44→20:06)
[2020-06-12] MEDS: ALBUTEROL SULFATE NEB 2.5 MG/0.5 ML INH INHALATION ×4 (02:44→20:06)
[2020-06-12 05:30] LABS: Hematocrit 34.2 % (37.0-47.0); Mean Corpuscular HGB Conc 32.2 g/dl (32-36); Mean Corpuscular Hemoglobin 30.7 pg (26-34); Mean Corpuscular Volume 95.5 fl (80-100); Mean Platelet Volume 11.1 fl (7.4-10.4); Platelet Count Result 149 k/mm3 (150-375); Red Blood Count 3.58 M/mm3 (4.2-5.4); Red Cell Distribution Width 14.8 % (11.5-14.5); White Blood Count 8.1 K/mm3 (4.5-10.0)
[2020-06-12 05:43] LABS: Anion Gap 7 mmol/L (8-16); Blood Urea Nitrogen 36 mg/dL (7-17); Calcium 8.6 mg/dL (8.4-10.2); Carbon Dioxide 27 mmol/L (22-30); Chloride 107 mmol/L (98-107); Estimated CRCL calculation 47 ml/min; Estimated Glomerular Filt Rate 54; Glucose 145 mg/dL (65-105); Potassium 4.5 mmol/L (3.4-5.0); Sodium 141 mmol/L (137-145)
[2020-06-12] MEDS: LEVOTHYROXINE SODIUM 100 MCG TABLET PO (06:13)
[2020-06-12] MEDS: LEVOTHYROXINE SODIUM 75 MCG TABLET PO (06:13)
[2020-06-12] MEDS: BUDESONIDE RESPULE NEB 0.5 MG/2 ML AMP INHALATION ×2 (08:05→20:06)
[2020-06-12] MEDS: THERAPEUTIC MULTIVITAMINS/MINERALS TAB (*BKC) 1 TABLET PO (08:37)
[2020-06-12] MEDS: FAMOTIDINE 20 MG TABLET PO ×2 (08:37→18:07)
[2020-06-12] MEDS: guaiFENesin 12 HR 600 MG TABCR PO ×2 (08:37→21:44)
[2020-06-12] MEDS: ENOXAPARIN 40 MG/0.4 ML SYRINGE SUB-Q (08:37)
[2020-06-12] MEDS: FUROSEMIDE 40 MG TABLET PO (08:37)
[2020-06-12] MEDS: DOCUSATE SODIUM 100 MG CAPSULE PO ×2 (08:41→21:44)
--- NOTE | 2020-06-12 12:01 | PCRCNOTE ---
PATIENT DID NOT TAKE HER FIRST DOSE OF HOME INHALATION MEDICATION. SHE TOOK HER INITIAL DOSE AT 10:15AM
--- NOTE | 2020-06-12 17:16 | PM.IMPN ---
Progress Note: A&P Assessment and Plan (1) Acute and chronic respiratory failure with hypoxia: Code(s): J96.21 - Acute and chronic respiratory failure with hypoxia Status: Acute Assessment and Plan: 06/10/20 17:08 patient is 75-year-old female with severe COPD, chronic respiratory failure and autoimmune interstitial lung disease on home 6 L oxygen apparently patient became quite hypoxic and was desaturating EMS was called and her O2 sat was 60% on 6 L oxygen patient was brought to the emergency department for further evaluation, patient was started on Solu-Medrol, was given neb which did improve her symptoms and placed on high-flow oxygen, added Pulmicort to her regimen, today patient was seen by pulmonology and suspect in addition examination of COPD patient also has severe pulmonary hypertension which is also worsening patient symptoms and recommended to continue on home regimen of Tadalafil, Inhaled Treprostinil and Opsumit, taper her Solu-Medrol to 40 mg q.6, continue DuoNeb and Pulmicort, added azithromycin and Rocephin, today patient states feeling little better breath better denies any fever or chills, will continue to monitor and further recommendation to follow 06/11/20 patient with severe COPD and severe pulmonary hypertension patient was desaturated table cover folder recommended to transfer the patient to the [facility], did speak with ICU and patient was accepted however patient still in the hospital as there is no bed available as of yet, patient clinically symptoms are improved patient states is feeling much better. (2) COPD exacerbation: Code(s): J44.1 - Chronic obstructive pulmonary disease with (acute) exacerbation Status: Acute Assessment and Plan: plan is above (3) Interstitial lung disease: Code(s): J84.9 - Interstitial pulmonary disease, unspecified Status: Inactive Assessment and Plan: will consult table cover folder for further recommendation (4) Hypothyroidism: Code(s): E03.9 - Hypothyroidism, unspecified Status: Inactive Assessment and Plan: will continue home regimen and (5) Dyslipidemia: Code(s): E78.5 - Hyperlipidemia, unspecified Status: Acute Assessment and Plan: will continue home regimen and monitor (6) Chronic kidney disease, stage 3: Code(s): N18.30 - Chronic kidney disease, stage 3 unspecified Status: Acute Assessment and Plan: most likely acute on chronic will gently hydrate the patient (7) Anemia: Code(s): D64.9 - Anemia, unspecified Status: Inactive Assessment and Plan: most likely anemia of chronic disease and stable Subjective Date/time seen: 06/11/20 patient with severe COPD and severe pulmonary hypertension patient was desaturated table cover folder recommended to transfer the patient to the [facility], did speak with ICU and patient was accepted however patient still in the hospital as there is no bed available as of yet, patient clinically symptoms are improved patient states is feeling much better. Review of Systems Review of Systems: All systems reviewed & are unremarkable except as noted in HPI and below Exam Narrative: Exam Narrative: elderly frail Patient is comfortable, NAD HEENT: on high-flow oxygen some retraction LUNGS: bilateral poor air entry with harsh breath sound wheezing HEART: RR S1S2 ABD: BS+, Soft and nontender Lower extremities: no edema SKIN: nonjaundiced Neuro: grossly intact. Objective Data Vital Signs Vital Signs: Vital Signs - 24 hr 06/11/20 17:17 06/11/20 17:26 06/11/20 18:00 Temperature Pulse Rate 100 Respiratory Rate Blood Pressure Pulse Oximetry 94 90 06/11/20 20:00 06/11/20 20:33 06/11/20 20:50 Temperature 97.9 F Pulse Rate 108 H 96 100 Respiratory Rate 22 H 22 H 18 Blood Pressure 122/67 Pulse Oximetry 91 06/11/20 22:00 06/11/20 23:34 06/12/20 00:00 [place]
--- NOTE | 2020-06-12 17:19 | PM.IMPN ---
Progress Note: A&P Assessment and Plan (1) Acute and chronic respiratory failure with hypoxia: Code(s): J96.21 - Acute and chronic respiratory failure with hypoxia Status: Acute Assessment and Plan: 06/10/20 17:08 patient is 75-year-old female with severe COPD, chronic respiratory failure and autoimmune interstitial lung disease on home 6 L oxygen apparently patient became quite hypoxic and was desaturating EMS was called and her O2 sat was 60% on 6 L oxygen patient was brought to the emergency department for further evaluation, patient was started on Solu-Medrol, was given neb which did improve her symptoms and placed on high-flow oxygen, added Pulmicort to her regimen, today patient was seen by pulmonology and suspect in addition examination of COPD patient also has severe pulmonary hypertension which is also worsening patient symptoms and recommended to continue on home regimen of Tadalafil, Inhaled Treprostinil and Opsumit, taper her Solu-Medrol to 40 mg q.6, continue DuoNeb and Pulmicort, added azithromycin and Rocephin, today patient states feeling little better breath better denies any fever or chills, will continue to monitor and further recommendation to follow 06/11/20 patient with severe COPD and severe pulmonary hypertension patient was desaturated retail advertising sales manager recommended to transfer the patient to the [facility], did speak with ICU and patient was accepted however patient still in the hospital as there is no bed available as of yet, patient clinically symptoms are improved patient states is feeling much better. 06/12/20 17:19 patient with severe COPD and severe pulmonary hypertension patient was desaturated retail advertising sales manager recommended to transfer the patient to the [facility], did speak with ICU on 06/11 and patient was accepted however patient still in the hospital as there is no bed available as of yet, patient clinically symptoms are improving patient states is feeling much better. her is present in the room will like us to monitor patient here if all possible other than sending the patient to [facility] will communicate with the retail advertising sales manager (2) COPD exacerbation: Code(s): J44.1 - Chronic obstructive pulmonary disease with (acute) exacerbation Status: Acute Assessment and Plan: plan is above (3) Interstitial lung disease: Code(s): J84.9 - Interstitial pulmonary disease, unspecified Status: Inactive Assessment and Plan: will consult retail advertising sales manager for further recommendation (4) Hypothyroidism: Code(s): E03.9 - Hypothyroidism, unspecified Status: Inactive Assessment and Plan: will continue home regimen and (5) Dyslipidemia: Code(s): E78.5 - Hyperlipidemia, unspecified Status: Acute Assessment and Plan: will continue home regimen and monitor (6) Chronic kidney disease, stage 3: Code(s): N18.30 - Chronic kidney disease, stage 3 unspecified Status: Acute Assessment and Plan: most likely acute on chronic will gently hydrate the patient (7) Anemia: Code(s): D64.9 - Anemia, unspecified Status: Inactive Assessment and Plan: most likely anemia of chronic disease and stable Subjective Date/time seen: 06/12/20 17:19 patient with severe COPD and severe pulmonary hypertension patient was desaturated retail advertising sales manager recommended to transfer the patient to the [facility], did speak with ICU on 06/11 and patient was accepted however patient still in the hospital as there is no bed available as of yet, patient clinically symptoms are improving patient states is feeling much better. her is present in the room will like us to monitor patient here if all possible other than sending the patient to [facility] will communicate with the retail advertising sales manager Review of Systems Review of Systems: All systems reviewed & are unremarkable except as noted in HPI and
--- NOTE | 2020-06-12 17:54 | PM.PNPUL ---
Progress Note: A&P Assessment and Plan (1) COPD exacerbation: Code(s): J44.1 - Chronic obstructive pulmonary disease with (acute) exacerbation Status: Acute Assessment and Plan: Ceftriaxone and Azithromycin to continue. Purulent cough has resolved. continue solumedrol to 40 mg IV Q6h continue current duoebs Q6 and Pulmicort bid COPD is mild with last FEV1 > 100% of predicted Will change order to allow sat to be maintained between 85-88%. (2) Acute and chronic respiratory failure with hypoxia: Code(s): J96.21 - Acute and chronic respiratory failure with hypoxia Status: Acute Assessment and Plan: Multifactorial but predominately due to ILD, Pulmonary Hypertension and COPD. PFO less likely contributing (3) ILD (interstitial lung disease): Code(s): J84.9 - Interstitial pulmonary disease, unspecified Status: Acute Assessment and Plan: NSIP, undifferentiated with subpleural benign appearing pulmonary nodules (4) Pulmonary hypertension: Code(s): I27.20 - Pulmonary hypertension, unspecified Status: Acute Assessment and Plan: Group 1 and 3 PHTN currently being treated at [facility] with Tadafil, Opsumit and Nebulized Treprostinil. She has not been getting her Treprostinil. I've reorder it this morning at 54 mcg Nebulized QID. I've spoken to pharmacy and her nurse. The patient has the medication here with her. If oxygen demand does not improved over next 24 hours, she should be transferred to [facility] for higher level of care. Subjective Date/time seen: 06/13/20 17:54 Interval history: THis 75 yo female is seen in follow up for acute on chronic respiratory failure with pulmonary hypertension, ILD, COPD with exacerbation. She desaturates when she has her NRM off. Now, on Airvo, sat is 81%. SHe does not feel bad when she desaturates. We talked about the benefits of transfer. She has advanced disease, and we are not able to lower her O2 flow. Without making progress, she is not close to being able to go home. Home patients cannot be on Airvo and 100% NRM top maintain saturation at 88%. Hypoxic without distress. Her Treprostinil was restarted. Review of Systems Review of Systems: All systems reviewed & are unremarkable except as noted in HPI and below Exam Const: General: cooperative, healthy appearing, comfortable, no acute distress, well developed, alert, awake, Physically active and acute distress Nutritional Appearance: average body habitus Orientation/consciousness: oriented to person, oriented to place, oriented to time and patient oriented x3 Limitations: physical limitations HENMT: Head: normal to inspection, normocephalic and atraumatic Eyes: General: appearance normal, both eyes and all related structures Neck: Neck: trachea midline and supple Resp: Effort & Inspection: normal respiratory effort and able to speak in complete sentences Auscultation: crackles (bases ) bilateral and diminished lung sounds Cardio: Jugular venous distension: no JVD Rate: regular rate Rhythm: regular rhythm Heart sounds: S1 normal heart sound present and S2 normal heart sound present GI: Inspection: normal to inspection Skin: General skin exam: normal color and no rashes or lesions noted Neuro: General: oriented to person, oriented to place, oriented to time and patient oriented x3 Cognition (Neuro): normal cognition Speech: normal speech Gait exam (Neuro): Normal gait present Psych: Appearance: grossly normal and well kempt Mental Status: mental status grossly normal Objective Data Vital Signs Vital Signs: Vital Signs - 24 hr 06/11/20 18:00 06/11/20 20:00 06/11/20 20:33 Temperature 36.6 C Pul
[2020-06-12] MEDS: ATORVASTATIN 10 MG TABLET PO (21:43)
[2020-06-12] MEDS: MELATONIN 3 MG TABLET PO (21:54)
[2020-06-13] VITALS (29 sets, daily range): BP systolic 104–150; BP diastolic 53–76; PULSE 76–107; RESP 18–24; TEMP 36.1–36.6; O2SAT 86–96
[2020-06-13] MEDS: methylPREDNISolone SOD SUCC 40 MG VIAL IV PUSH ×4 (00:52→17:27)
[2020-06-13] MEDS: IPRATROPIUM BR 0.02% INH SOLN 0.5 MG/2.5 ML VIAL INHALATION ×4 (02:40→20:13)
[2020-06-13] MEDS: ALBUTEROL SULFATE NEB 2.5 MG/0.5 ML INH INHALATION ×4 (02:40→20:13)
[2020-06-13 05:52] LABS: Hematocrit 33.8 % (37.0-47.0); Hemoglobin 10.8 g/dL (12.0-15.0); Mean Corpuscular Hemoglobin 30.5 pg (26-34); Mean Corpuscular Volume 95.5 fl (80-100); Mean Platelet Volume 11.4 fl (7.4-10.4); Platelet Count Result 157 k/mm3 (150-375); Red Blood Count 3.54 M/mm3 (4.2-5.4); White Blood Count 7.4 K/mm3 (4.5-10.0)
[2020-06-13 06:28] LABS: Anion Gap 6 mmol/L (8-16); Blood Urea Nitrogen 36 mg/dL (7-17); Calcium 8.5 mg/dL (8.4-10.2); Carbon Dioxide 30 mmol/L (22-30); Chloride 105 mmol/L (98-107); Estimated CRCL calculation 53 ml/min; Estimated Glomerular Filt Rate > 60; Glucose 145 mg/dL (65-105); Potassium 4.4 mmol/L (3.4-5.0); Sodium 141 mmol/L (137-145)
[2020-06-13] MEDS: LEVOTHYROXINE SODIUM 100 MCG TABLET PO (07:28)
[2020-06-13] MEDS: LEVOTHYROXINE SODIUM 75 MCG TABLET PO (07:28)
[2020-06-13] MEDS: BUDESONIDE RESPULE NEB 0.5 MG/2 ML AMP INHALATION ×2 (08:03→20:13)
[2020-06-13] MEDS: DOCUSATE SODIUM 100 MG CAPSULE PO ×2 (09:05→21:08)
[2020-06-13] MEDS: ENOXAPARIN 40 MG/0.4 ML SYRINGE SUB-Q (09:05)
[2020-06-13] MEDS: FUROSEMIDE 40 MG TABLET PO (09:05)
[2020-06-13] MEDS: guaiFENesin 12 HR 600 MG TABCR PO ×2 (09:05→21:08)
[2020-06-13] MEDS: THERAPEUTIC MULTIVITAMINS/MINERALS TAB (*BKC) 1 TABLET PO (09:05)
[2020-06-13] MEDS: FAMOTIDINE 20 MG TABLET PO ×2 (09:05→17:27)
[2020-06-13] MEDS: ACETAMINOPHEN 500 MG TABLET PO ×2 (10:35→23:08)
--- NOTE | 2020-06-13 16:16 | PM.IMPN ---
Progress Note: A&P Assessment and Plan (1) Acute and chronic respiratory failure with hypoxia: Code(s): J96.21 - Acute and chronic respiratory failure with hypoxia Status: Acute Assessment and Plan: 06/13/20 16:16 Treprostinil. patient is 75-year-old female with severe COPD, chronic respiratory failure and autoimmune interstitial lung disease on home 6 L oxygen apparently patient became quite hypoxic and was desaturating EMS was called and her O2 sat was 60% on 6 L oxygen patient was brought to the emergency department for further evaluation, patient was started on Solu-Medrol, was given neb which did improve her symptoms and placed on high-flow oxygen, added Pulmicort to her regimen, today patient was seen by pulmonology and suspect in addition examination of COPD patient also has severe pulmonary hypertension which is also worsening patient symptoms and recommended to continue on home regimen of Tadalafil, Inhaled Treprostinil and Opsumit, taper her Solu-Medrol to 40 mg q.6, continue DuoNeb and Pulmicort, added azithromycin and Rocephin, today patient states feeling little better breath better denies any fever or chills, will continue to monitor and further recommendation to follow 06/11/20 patient with severe COPD and severe pulmonary hypertension patient was desaturated inspector filter tip recommended to transfer the patient to the [facility], did speak with ICU and patient was accepted however patient still in the hospital as there is no bed available as of yet, patient clinically symptoms are improved patient states is feeling much better. 06/12/20 patient with severe COPD and severe pulmonary hypertension patient was desaturated inspector filter tip recommended to transfer the patient to the [facility], did speak with ICU on 06/11 and patient was accepted however patient still in the hospital as there is no bed available as of yet, patient clinically symptoms are improving patient states is feeling much better. her is present in the room will like us to monitor patient here if all possible other than sending the patient to [facility] will communicate with the inspector filter tip, 06/13 today patient still waiting to be transferred at the [facility] however still no bed is available, patient clinically symptoms are of worsening and patient is on 15 L non-rebreather mask today patient was seen by Dr. Florez, patient with severe COPD patient is also being treated for severe pulmonary hypertension and interstitial lung disease with Tadafil, Opsumit and Nebulized Treprostinil by her inspector filter tip [facility] however patient is not getting Treprostinil because it not available at the pharmacy patient has a from home will resume, will continue to monitor and further recommendation to follow. (2) COPD exacerbation: Code(s): J44.1 - Chronic obstructive pulmonary disease with (acute) exacerbation Status: Acute Assessment and Plan: plan is above (3) Interstitial lung disease: Code(s): J84.9 - Interstitial pulmonary disease, unspecified Status: Inactive Assessment and Plan: will consult inspector filter tip for further recommendation (4) Hypothyroidism: Code(s): E03.9 - Hypothyroidism, unspecified Status: Inactive Assessment and Plan: will continue home regimen and (5) Dyslipidemia: Code(s): E78.5 - Hyperlipidemia, unspecified Status: Acute Assessment and Plan: will continue home regimen and monitor (6) Chronic kidney disease, stage 3: Code(s): N18.30 - Chronic kidney disease, stage 3 unspecified Status: Acute Assessment and Plan: most likely acute on chronic will gently hydrate the patient (7) Anemia: Code(s): D64.9 - Anemia, unspecified Status: Inactive Assessment and Plan: most likely anemia of chronic disease and stable Additional Plan The patient has been admitted to the hospi
[2020-06-13] MEDS: ATORVASTATIN 10 MG TABLET PO (21:08)
[2020-06-13] MEDS: MELATONIN 3 MG TABLET PO (23:09)
[2020-06-14] VITALS (23 sets, daily range): BP systolic 104–125; BP diastolic 44–96; PULSE 72–92; RESP 18–24; TEMP 36.2–36.7; O2SAT 90–96
[2020-06-14] MEDS: methylPREDNISolone SOD SUCC 40 MG VIAL IV PUSH ×5 (00:26→23:05)
[2020-06-14] MEDS: IPRATROPIUM BR 0.02% INH SOLN 0.5 MG/2.5 ML VIAL INHALATION ×4 (02:17→21:37)
[2020-06-14] MEDS: ALBUTEROL SULFATE NEB 2.5 MG/0.5 ML INH INHALATION ×4 (02:17→21:37)
[2020-06-14 05:28] LABS: Hematocrit 34.7 % (37.0-47.0); Hemoglobin 11.1 g/dL (12.0-15.0); Mean Corpuscular Hemoglobin 30.2 pg (26-34); Mean Corpuscular Volume 94.3 fl (80-100); Mean Platelet Volume 11.5 fl (7.4-10.4); Platelet Count Result 164 k/mm3 (150-375); Red Blood Count 3.68 M/mm3 (4.2-5.4); White Blood Count 8.1 K/mm3 (4.5-10.0)
[2020-06-14 05:39] LABS: Anion Gap 6 mmol/L (8-16); Blood Urea Nitrogen 34 mg/dL (7-17); Calcium 8.5 mg/dL (8.4-10.2); Carbon Dioxide 29 mmol/L (22-30); Chloride 105 mmol/L (98-107); Estimated CRCL calculation 52 ml/min; Estimated Glomerular Filt Rate > 60; Glucose 142 mg/dL (65-105); Potassium 4.5 mmol/L (3.4-5.0); Sodium 140 mmol/L (137-145)
[2020-06-14] MEDS: LEVOTHYROXINE SODIUM 75 MCG TABLET PO (06:25)
[2020-06-14] MEDS: LEVOTHYROXINE SODIUM 100 MCG TABLET PO (06:25)
[2020-06-14] MEDS: FAMOTIDINE 20 MG TABLET PO ×2 (09:40→16:19)
[2020-06-14] MEDS: BUDESONIDE RESPULE NEB 0.5 MG/2 ML AMP INHALATION ×2 (09:40→21:37)
[2020-06-14] MEDS: THERAPEUTIC MULTIVITAMINS/MINERALS TAB (*BKC) 1 TABLET PO (09:40)
[2020-06-14] MEDS: DOCUSATE SODIUM 100 MG CAPSULE PO ×2 (09:40→20:36)
[2020-06-14] MEDS: ENOXAPARIN 40 MG/0.4 ML SYRINGE SUB-Q (09:40)
[2020-06-14] MEDS: guaiFENesin 12 HR 600 MG TABCR PO ×2 (09:41→20:36)
[2020-06-14] MEDS: FUROSEMIDE 40 MG TABLET PO (09:41)
[2020-06-14] MEDS: ACETAMINOPHEN 500 MG TABLET PO ×2 (16:32→22:58)
--- NOTE | 2020-06-14 16:42 | PM.IMPN ---
Progress Note: A&P Assessment and Plan (1) Acute and chronic respiratory failure with hypoxia: Code(s): J96.21 - Acute and chronic respiratory failure with hypoxia Status: Acute Assessment and Plan: secondary to COPD exacerbation. Placed on her usual medications listed below as well as Solu-Medrol, updrafts, and antibiotics. patient with severe COPD and severe pulmonary hypertension patient was desaturated, lehr operator recommended to transfer the patient to the [facility], did speak with ICU and patient was accepted . today patient still waiting to be transferred at the [facility] however still no bed is available, patient clinically symptoms are of worsening and patient is on 10 L non-rebreather mask today patient was seen by Dr. Florez, patient with severe COPD patient is also being treated for severe pulmonary hypertension and interstitial lung disease with Tadafil, Opsumit and Nebulized Treprostinil by her lehr operator [facility] . will continue to monitor and further recommendation to follow. (2) COPD exacerbation: Code(s): J44.1 - Chronic obstructive pulmonary disease with (acute) exacerbation Status: Acute Assessment and Plan: plan is above With steroids, antibiotics, and her usual meds (3) Interstitial lung disease: Code(s): J84.9 - Interstitial pulmonary disease, unspecified Status: Inactive Assessment and Plan: transferred to [place] when bed available (4) Hypothyroidism: Code(s): E03.9 - Hypothyroidism, unspecified Status: Inactive Assessment and Plan: will continue home regimen , levothyroxine 175 mcg daily (5) Dyslipidemia: Code(s): E78.5 - Hyperlipidemia, unspecified Status: Acute Assessment and Plan: will continue home regimen and monitor (6) Chronic kidney disease, stage 3: Code(s): N18.30 - Chronic kidney disease, stage 3 unspecified Status: Acute Assessment and Plan: most likely acute on chronic and creatinine has fallen the 0.9 (7) Anemia: Code(s): D64.9 - Anemia, unspecified Status: Inactive Assessment and Plan: most likely anemia of chronic disease and stable Subjective Date/time seen: 06/14/20 16:42 Interval history: date of visit 06/14 75 yo female is seen in follow up for acute on chronic respiratory failure with pulmonary hypertension, ILD, COPD with exacerbation. She desaturates when she has her NRM off. Now, on Airvo, sat is 81%. SHe does not feel bad when she desaturates. frustrated that transfer has not taken place but still requiring high-flow oxygen that cannot be obtained and home setting Hypoxic without distress. Her Treprostinil was restarted. Exam Narrative: Exam Narrative: blood pressure 106/64 pulse is 82 respirations 24 per minute saturating 90 % on 10 L high-flow with non rebreather mask. elderly frail Patient is comfortable, NAD HEENT: on high-flow oxygen some retraction LUNGS: bilateral poor air entry with harsh breath sound , No wheezing HEART: RR S1S2 ABD: BS+, Soft and nontender Lower extremities: no edema neuro alert cooperative pleasant with no focal deficits Objective Data Vital Signs Vital Signs: Vital Signs - 24 hr 06/13/20 18:00 06/13/20 19:45 06/13/20 20:00 Temperature 36.1 C L Pulse Rate 104 H 107 H 95 Respiratory Rate 22 H Blood Pressure 130/67 Pulse Oximetry 94 93 06/13/20 20:16 06/13/20 20:17 06/13/20 20:30 Temperature Pulse Rate 100 100 96 Respiratory Rate 24 H 24 H 20 Blood Pressure Pulse Oximetry 86 L 06/13/20 20:44 06/13/20 22:00 06/13/20 23:08 Temperature 36.6 C Pulse Rate 96 82 Respiratory Rate 20 Blood Pressure Pulse Oximetry 96 06/13/20 23:50 06/14/20 00:00 06/14/20 02:00 Temperature 36.1 C L Pulse Rate 89 81 81 Respiratory Rate 18 Blood Pressure 132/60 Pulse Oximetry 94 93 06/14/20 02:19 06/14/20 02:31
--- NOTE | 2020-06-14 19:32 | PM.PNPUL ---
Progress Note: A&P Assessment and Plan (1) COPD exacerbation: Code(s): J44.1 - Chronic obstructive pulmonary disease with (acute) exacerbation Status: Acute Assessment and Plan: Ceftriaxone and Azithromycin to continue. Purulent cough has resolved however she has mininmal hemoptysis. . continue solumedrol to 40 mg IV Q6h continue current duoebs Q6 and Pulmicort bid COPD is mild with last FEV1 > 100% of predicted Continue O2 to maintain saturation between 85-88%. Add soft bootie or other protection to the ankle to prevent breakdown. Add Cornet valve to help with secretions. She feels as if she has secretions that she cannot mobilize easily. (2) Acute and chronic respiratory failure with hypoxia: Code(s): J96.21 - Acute and chronic respiratory failure with hypoxia Status: Acute Assessment and Plan: Multifactorial but predominately due to ILD, Pulmonary Hypertension and COPD. PFO less likely contributing (3) ILD (interstitial lung disease): Code(s): J84.9 - Interstitial pulmonary disease, unspecified Status: Acute Assessment and Plan: NSIP, undifferentiated with subpleural benign appearing pulmonary nodules (4) Pulmonary hypertension: Code(s): I27.20 - Pulmonary hypertension, unspecified Status: Acute Assessment and Plan: Group 1 and 3 PHTN currently being treated at [facility] with Tadafil, Opsumit and Nebulized Treprostinil. She has not been getting her Treprostinil. I've reorder it this morning at 54 mcg Nebulized QID. I've spoken to pharmacy and her nurse. The patient has the medication here with her. Her O2 demand is lower, still may be too high to travel to [facility] for higher level of care. She is on too much O2 to use at home. Will continue to try to wean. Subjective Date/time seen: 06/14/20 19:32 Interval history: This 75 yo female is seen in follow up for acute on chronic respiratory failure with pulmonary hypertension, ILD, COPD with exacerbation. She is frustrated being in the hospital for a week. She agreed to go to [place], however is still on more O2 than she can be transferred wearing, however she is off NRM. She has tenderness on the right lateral ankle without breakdown. Tina Montejo RN is at the bedside. Patient is having small amount of hemoptysis, old blood, dark. No pain. She desaturates when she has her NRM off. Airvo, sat is 85%. She is asymptomatic with desaturation. She is not able to go home on the amount of O2 that she is on now, however she is on less than yesterday. Home patients cannot be on Airvo and 100% NRM to maintain saturation at 88%. Hypoxic without distress. Her Treprostinil was restarted. Review of Systems Review of Systems: All systems reviewed & are unremarkable except as noted in HPI and below Exam Const: General: cooperative, healthy appearing, comfortable, no acute distress, well developed, alert, awake, Physically active and acute distress Nutritional Appearance: average body habitus Orientation/consciousness: oriented to person, oriented to place, oriented to time and patient oriented x3 Limitations: physical limitations HENMT: Head: normal to inspection, normocephalic and atraumatic Eyes: General: appearance normal, both eyes and all related structures Neck: Neck: trachea midline and supple Resp: Effort & Inspection: normal respiratory effort and able to speak in complete sentences Auscultation: crackles (bases ) bilateral and diminished lung sounds Cardio: Jugular venous distension: no JVD Rate: regular rate Rhythm: regular rhythm Heart sounds: S1 normal heart sound present and S2 normal heart sound present GI: Inspection: normal
[2020-06-14] MEDS: ATORVASTATIN 10 MG TABLET PO (20:35)
[2020-06-14] MEDS: MELATONIN 3 MG TABLET PO (22:58)
[2020-06-15] VITALS (21 sets, daily range): BP systolic 102–128; BP diastolic 39–55; PULSE 68–96; RESP 18–24; TEMP 35.9–37.1; O2SAT 88–98
[2020-06-15] MEDS: IPRATROPIUM BR 0.02% INH SOLN 0.5 MG/2.5 ML VIAL INHALATION ×4 (02:43→19:54)
[2020-06-15] MEDS: ALBUTEROL SULFATE NEB 2.5 MG/0.5 ML INH INHALATION ×4 (02:43→19:54)
[2020-06-15 04:57] LABS: Hematocrit 35.9 % (37.0-47.0); Hemoglobin 11.5 g/dL (12.0-15.0); Mean Corpuscular Hemoglobin 30.3 pg (26-34); Mean Corpuscular Volume 94.5 fl (80-100); Mean Platelet Volume 11.3 fl (7.4-10.4); Platelet Count Result 162 k/mm3 (150-375); Red Cell Distribution Width 14.9 % (11.5-14.5); White Blood Count 9.4 K/mm3 (4.5-10.0)
[2020-06-15 05:19] LABS: Anion Gap 7 mmol/L (8-16); Blood Urea Nitrogen 37 mg/dL (7-17); Calcium 8.3 mg/dL (8.4-10.2); Carbon Dioxide 30 mmol/L (22-30); Chloride 102 mmol/L (98-107); Estimated CRCL calculation 52 ml/min; Estimated Glomerular Filt Rate > 60; Glucose 148 mg/dL (65-105); Potassium 4.5 mmol/L (3.4-5.0); Sodium 139 mmol/L (137-145)
[2020-06-15] MEDS: methylPREDNISolone SOD SUCC 40 MG VIAL IV PUSH ×3 (06:20→23:53)
[2020-06-15] MEDS: LEVOTHYROXINE SODIUM 100 MCG TABLET PO (06:20)
[2020-06-15] MEDS: LEVOTHYROXINE SODIUM 75 MCG TABLET PO (06:20)
[2020-06-15] MEDS: DOCUSATE SODIUM 100 MG CAPSULE PO ×2 (09:00→20:43)
[2020-06-15] MEDS: FUROSEMIDE 40 MG TABLET PO (09:01)
[2020-06-15] MEDS: ENOXAPARIN 40 MG/0.4 ML SYRINGE SUB-Q (09:01)
[2020-06-15] MEDS: FAMOTIDINE 20 MG TABLET PO ×2 (09:01→17:08)
[2020-06-15] MEDS: THERAPEUTIC MULTIVITAMINS/MINERALS TAB (*BKC) 1 TABLET PO (09:01)
[2020-06-15] MEDS: guaiFENesin 12 HR 600 MG TABCR PO ×2 (09:01→20:43)
[2020-06-15] MEDS: BUDESONIDE RESPULE NEB 0.5 MG/2 ML AMP INHALATION ×2 (09:11→19:54)
--- NOTE | 2020-06-15 11:17 | PCDIET ---
Weekly nutritional screen. Patient is tolerating current diet with adequate intake. Reports eating better here than she does normally at home. No weight loss reported. BMI 31.4. No nutritional needs at this time.
--- NOTE | 2020-06-15 15:39 | PM.IMPN ---
Progress Note: A&P Assessment and Plan (1) Acute and chronic respiratory failure with hypoxia: Code(s): J96.21 - Acute and chronic respiratory failure with hypoxia Status: Acute Assessment and Plan: secondary to COPD exacerbation. Placed on her usual medications listed below as well as Solu-Medrol, updrafts, and antibiotics. patient with severe COPD and severe pulmonary hypertension patient was desaturated, carroting machine offbearer recommended to transfer the patient to the [facility], did speak with ICU and patient was accepted awaiting bed. today patient still waiting to be transferred , [facility] however still no bed is available, patient clinically symptoms are not worsening and patient is on 9 L non-rebreather mask today patient was seen by Dr. Florez, patient with severe COPD patient is also being treated for severe pulmonary hypertension and interstitial lung disease with Tadafil, Opsumit and Nebulized Treprostinil by her carroting machine offbearer [facility] . . (2) COPD exacerbation: Code(s): J44.1 - Chronic obstructive pulmonary disease with (acute) exacerbation Status: Acute Assessment and Plan: plan is above With steroids, antibiotics D # 7, and her usual meds (3) Interstitial lung disease: Code(s): J84.9 - Interstitial pulmonary disease, unspecified Status: Inactive Assessment and Plan: transferred to [place] when bed available (4) Hypothyroidism: Code(s): E03.9 - Hypothyroidism, unspecified Status: Inactive Assessment and Plan: will continue home regimen , levothyroxine 175 mcg daily (5) Dyslipidemia: Code(s): E78.5 - Hyperlipidemia, unspecified Status: Acute Assessment and Plan: will continue home regimen and monitor (6) Chronic kidney disease, stage 3: Code(s): N18.30 - Chronic kidney disease, stage 3 unspecified Status: Acute Assessment and Plan: most likely acute on chronic and creatinine has fallen the 0.9 (7) Anemia: Code(s): D64.9 - Anemia, unspecified Status: Inactive Assessment and Plan: most likely anemia of chronic disease and stable, hgb today 11.5 (8) DVT prophylaxis: Code(s): Z29.9 - Encounter for prophylactic measures, unspecified Status: Acute Assessment and Plan: lovenox Subjective Date/time seen: 06/15/20 15:39 Interval history: date of visit 06/15 75 yo female is seen in follow up for acute on chronic respiratory failure with pulmonary hypertension, ILD, COPD with exacerbation. She desaturates when she has her NRM off. Now, on high flow NC at 9L sat is 91%. SHe does not feel bad when she desaturates. frustrated that transfer has not taken place but still requiring high-flow oxygen that cannot be obtained in home setting Hypoxic without distress. Her Treprostinil was restarted. Exam Narrative: Exam Narrative: blood pressure 122/56 pulse is 82 respirations 24 per minute saturating 91 % on 9 L high-flow with non rebreather mask. elderly frail Patient is comfortable, NAD HEENT: on high-flow oxygen some retraction LUNGS: bilateral poor air entry with harsh breath sound , No wheezing or crackles HEART: RR S1S2 ABD: BS+, Soft and nontender Lower extremities: no edema neuro alert cooperative pleasant with no focal deficits Objective Data Vital Signs Vital Signs: Vital Signs - 24 hr 06/14/20 16:00 06/14/20 18:00 06/14/20 19:00 Temperature 36.7 C 36.4 C Pulse Rate 84 72 79 Respiratory Rate 24 H 20 Blood Pressure 105/63 118/64 Pulse Oximetry 92 91 06/14/20 20:00 06/14/20 21:41 06/14/20 21:47 Temperature Pulse Rate 84 80 87 Respiratory Rate 20 20 Blood Pressure Pulse Oximetry 90 92 06/14/20 21:51 06/15/20 00:00 06/15/20 02:43 Temperature 36.3 C L Pulse Rate 80 80 77 Respiratory Rate 20 18 20 Blood Pressure 102/39 L Pulse Oximetry 93 06/15/20 04:00 06/15/20 06:00 06/15/20 08:00
[2020-06-15] MEDS: ATORVASTATIN 10 MG TABLET PO (20:43)
[2020-06-16] VITALS (21 sets, daily range): BP systolic 104–136; BP diastolic 47–62; PULSE 64–100; RESP 16–24; TEMP 36.2–37.6; O2SAT 88–94
[2020-06-16] MEDS: ALBUTEROL SULFATE NEB 2.5 MG/0.5 ML INH INHALATION ×4 (02:20→20:29)
[2020-06-16] MEDS: IPRATROPIUM BR 0.02% INH SOLN 0.5 MG/2.5 ML VIAL INHALATION ×4 (02:20→20:29)
[2020-06-16 05:33] LABS: Hematocrit 36.3 % (37.0-47.0); Hemoglobin 11.8 g/dL (12.0-15.0); Mean Corpuscular HGB Conc 32.5 g/dl (32-36); Mean Corpuscular Hemoglobin 30.9 pg (26-34); Mean Platelet Volume 11.6 fl (7.4-10.4); Platelet Count Result 169 k/mm3 (150-375); Red Blood Count 3.82 M/mm3 (4.2-5.4); Red Cell Distribution Width 15.2 % (11.5-14.5); White Blood Count 8.5 K/mm3 (4.5-10.0)
[2020-06-16] MEDS: LEVOTHYROXINE SODIUM 75 MCG TABLET PO (05:33)
[2020-06-16] MEDS: methylPREDNISolone SOD SUCC 40 MG VIAL IV PUSH ×3 (05:33→22:18)
[2020-06-16] MEDS: LEVOTHYROXINE SODIUM 100 MCG TABLET PO (05:33)
[2020-06-16 05:38] LABS: Anion Gap 4 mmol/L (8-16); Blood Urea Nitrogen 32 mg/dL (7-17); Calcium 8.2 mg/dL (8.4-10.2); Carbon Dioxide 32 mmol/L (22-30); Chloride 103 mmol/L (98-107); Estimated CRCL calculation 58 ml/min; Estimated Glomerular Filt Rate > 60; Glucose 144 mg/dL (65-105); Potassium 4.4 mmol/L (3.4-5.0); Sodium 139 mmol/L (137-145)
[2020-06-16] MEDS: BUDESONIDE RESPULE NEB 0.5 MG/2 ML AMP INHALATION ×2 (08:04→20:29)
[2020-06-16] MEDS: DOCUSATE SODIUM 100 MG CAPSULE PO ×2 (09:03→21:06)
[2020-06-16] MEDS: THERAPEUTIC MULTIVITAMINS/MINERALS TAB (*BKC) 1 TABLET PO (09:03)
[2020-06-16] MEDS: guaiFENesin 12 HR 600 MG TABCR PO ×2 (09:03→21:06)
[2020-06-16] MEDS: FUROSEMIDE 40 MG TABLET PO (09:03)
[2020-06-16] MEDS: ENOXAPARIN 40 MG/0.4 ML SYRINGE SUB-Q (09:03)
[2020-06-16] MEDS: FAMOTIDINE 20 MG TABLET PO ×2 (09:03→17:47)
--- NOTE | 2020-06-16 15:43 | PM.IMPN ---
Progress Note: A&P Assessment and Plan (1) Acute and chronic respiratory failure with hypoxia: Code(s): J96.21 - Acute and chronic respiratory failure with hypoxia Status: Acute Assessment and Plan: secondary to COPD exacerbation. Placed on her usual medications listed below as well as Solu-Medrol, updrafts, and antibiotics. patient with severe COPD and severe pulmonary hypertension patient was desaturated, sales account specialist recommended to transfer the patient to the [facility], patient was accepted awaiting bed. today patient still waiting to be transferred , [facility] however still no bed is available, patient clinically symptoms are not worsening and patient is on 10 L but without non-rebreather mask , patient with severe COPD patient is also being treated for severe pulmonary hypertension and interstitial lung disease with Tadafil, Opsumit and Nebulized Treprostinil by her sales account specialist [facility] . . (2) COPD exacerbation: Code(s): J44.1 - Chronic obstructive pulmonary disease with (acute) exacerbation Status: Acute Assessment and Plan: plan is above With steroids, antibiotics D # 8(will d/c), and her usual meds (3) Interstitial lung disease: Code(s): J84.9 - Interstitial pulmonary disease, unspecified Status: Inactive Assessment and Plan: transferred to [place] when bed available (4) Hypothyroidism: Code(s): E03.9 - Hypothyroidism, unspecified Status: Inactive Assessment and Plan: will continue home regimen , levothyroxine 175 mcg daily (5) Dyslipidemia: Code(s): E78.5 - Hyperlipidemia, unspecified Status: Acute Assessment and Plan: will continue home regimen and monitor (6) Chronic kidney disease, stage 3: Code(s): N18.30 - Chronic kidney disease, stage 3 unspecified Status: Acute Assessment and Plan: most likely acute on chronic and creatinine has fallen the 0.8 (7) Anemia: Code(s): D64.9 - Anemia, unspecified Status: Inactive Assessment and Plan: most likely anemia of chronic disease and stable, hgb today 11.8 (8) DVT prophylaxis: Code(s): Z29.9 - Encounter for prophylactic measures, unspecified Status: Acute Assessment and Plan: lovenox Subjective Date/time seen: 06/16/20 15:43 Interval history: date of visit 06/16 75 yo female is seen in follow up for acute on chronic respiratory failure with pulmonary hypertension, ILD, COPD with exacerbation. Now, on high flow NC at 10L sat is 91%. SHe does not feel bad when she desaturates. frustrated that transfer has not taken place but still requiring high-flow oxygen that cannot be obtained in home setting Hypoxic without distress. Her Treprostinil was restarted. Exam Narrative: Exam Narrative: blood pressure 122/60 pulse is 84 respirations 20 per minute saturating 91 % on 10 L high-flow without non rebreather mask. elderly frail Patient is comfortable, NAD HEENT: on high-flow oxygen some retraction LUNGS: distant BS , No wheezing or crackles HEART: RR S1S2 ABD: BS+, Soft and nontender Lower extremities: no edema neuro alert cooperative pleasant with no focal deficits Objective Data Vital Signs Vital Signs: Vital Signs - 24 hr 06/15/20 16:00 06/15/20 18:00 06/15/20 19:34 Temperature 36.4 C 37.1 C Pulse Rate 96 79 94 Respiratory Rate 24 H 20 Blood Pressure 115/49 L 119/52 L Pulse Oximetry 88 L 88 L 06/15/20 19:55 06/15/20 20:00 06/15/20 20:06 Temperature Pulse Rate 89 94 74 Respiratory Rate 22 H 20 22 H Blood Pressure Pulse Oximetry 90 88 L 06/15/20 22:00 06/16/20 00:00 06/16/20 02:00 Temperature 37.0 C Pulse Rate 77 67 65 Respiratory Rate 20 Blood Pressure 120/62 Pulse Oximetry 94 06/16/20 02:21 06/16/20 02:29 06/16/20 04:00 Temperature 36.2 C L Pulse Rate 66 64 67 Respiratory Rate 20 20 20 Blood Pressure 136/62 Pul
[2020-06-16] MEDS: ATORVASTATIN 10 MG TABLET PO (21:06)
[2020-06-16] MEDS: ACETAMINOPHEN 500 MG TABLET PO (22:19)
[2020-06-16] MEDS: MELATONIN 3 MG TABLET PO (22:19)
[2020-06-17] VITALS (15 sets, daily range): BP systolic 109–125; BP diastolic 46–51; PULSE 66–88; RESP 18–20; TEMP 36.1–36.4; O2SAT 88–96
[2020-06-17] MEDS: IPRATROPIUM BR 0.02% INH SOLN 0.5 MG/2.5 ML VIAL INHALATION ×2 (02:51→08:21)
[2020-06-17] MEDS: ALBUTEROL SULFATE NEB 2.5 MG/0.5 ML INH INHALATION ×2 (02:51→08:21)
[2020-06-17 06:15] LABS: Hematocrit 36.5 % (37.0-47.0); Hemoglobin 11.9 g/dL (12.0-15.0); Mean Corpuscular HGB Conc 32.6 g/dl (32-36); Mean Corpuscular Hemoglobin 30.7 pg (26-34); Mean Corpuscular Volume 94.1 fl (80-100); Mean Platelet Volume 11.8 fl (7.4-10.4); Platelet Count Result 165 k/mm3 (150-375); Red Blood Count 3.88 M/mm3 (4.2-5.4); Red Cell Distribution Width 15.3 % (11.5-14.5); White Blood Count 9.6 K/mm3 (4.5-10.0)
[2020-06-17 06:38] LABS: Anion Gap 5 mmol/L (8-16); Blood Urea Nitrogen 38 mg/dL (7-17); Calcium 8.2 mg/dL (8.4-10.2); Carbon Dioxide 30 mmol/L (22-30); Chloride 102 mmol/L (98-107); Estimated CRCL calculation 52 ml/min; Estimated Glomerular Filt Rate > 60; Glucose 122 mg/dL (65-105); Potassium 4.7 mmol/L (3.4-5.0); Sodium 137 mmol/L (137-145)
[2020-06-17] MEDS: LEVOTHYROXINE SODIUM 100 MCG TABLET PO (06:43)
[2020-06-17] MEDS: methylPREDNISolone SOD SUCC 40 MG VIAL IV PUSH (06:44)
[2020-06-17] MEDS: LEVOTHYROXINE SODIUM 75 MCG TABLET PO (06:44)
[2020-06-17] MEDS: BUDESONIDE RESPULE NEB 0.5 MG/2 ML AMP INHALATION (08:21)
[2020-06-17] MEDS: guaiFENesin 12 HR 600 MG TABCR PO (09:04)
[2020-06-17] MEDS: DOCUSATE SODIUM 100 MG CAPSULE PO (09:04)
[2020-06-17] MEDS: FUROSEMIDE 40 MG TABLET PO (09:05)
[2020-06-17] MEDS: ENOXAPARIN 40 MG/0.4 ML SYRINGE SUB-Q (09:05)
[2020-06-17] MEDS: FAMOTIDINE 20 MG TABLET PO (09:05)
[2020-06-17] MEDS: THERAPEUTIC MULTIVITAMINS/MINERALS TAB (*BKC) 1 TABLET PO (09:05)
--- NOTE | 2020-06-17 18:11 | PM.DS ---
DS: Admitting Diagnosis Admitting Diagnosis Admitting Diagnosis: Shortness of breath. DS: Discharge Diagnosis Discharge Diagnosis (1) Acute and chronic respiratory failure with hypoxia: Code(s): J96.21 - Acute and chronic respiratory failure with hypoxia Status: Acute Assessment and Plan: secondary to COPD exacerbation. Placed on her usual medications listed below as well as Solu-Medrol, updrafts, and antibiotics. patient with severe COPD and severe pulmonary hypertension patient was desaturated, risk lead recommended to transfer the patient to the [facility], patient was accepted but no bed ever became available. She improved with treatment here and with able to be discharged home on her high-flow oxygen at home at 8-10 L. patient with severe COPD patient is also being treated for severe pulmonary hypertension and interstitial lung disease with Tadafil, Opsumit and Nebulized Treprostinil by her risk lead [facility] . . (2) COPD exacerbation: Code(s): J44.1 - Chronic obstructive pulmonary disease with (acute) exacerbation Status: Acute Assessment and Plan: plan is above With steroids, and finish state a course of IV antibiotics ceftriaxone/ azithromycin (3) Interstitial lung disease: Code(s): J84.9 - Interstitial pulmonary disease, unspecified Status: Inactive Assessment and Plan: continue above meds and follow-up with risk lead next week (4) Hypothyroidism: Code(s): E03.9 - Hypothyroidism, unspecified Status: Inactive Assessment and Plan: will continue home regimen , levothyroxine 175 mcg daily, TSH slightly decreased and will defer to her primary care (5) Dyslipidemia: Code(s): E78.5 - Hyperlipidemia, unspecified Status: Acute Assessment and Plan: will continue home regimen and monitor (6) Chronic kidney disease, stage 3: Code(s): N18.30 - Chronic kidney disease, stage 3 unspecified Status: Acute Assessment and Plan: most likely acute on chronic and creatinine has fallen the 0.8 (7) Anemia: Code(s): D64.9 - Anemia, unspecified Status: Inactive Assessment and Plan: most likely anemia of chronic disease and stable, hgb today 11.9 at discharge DS: Summary Hospital Course Hospital Course: 75-year-old white female with severe COPD, pulmonary hypertension, interstitial lung disease admitted with exacerbation requiring high-flow oxygen coupled with non-rebreather. [facility] fadumo Lott was contacted and she is placed on a waiting list to be transferred there. No bed ever became available. With treatment of antibiotics, updrafts, and parental steroids she steadily improved until she was able to be weaned down to 8-9 L nasal cannula. She finished a course antibiotics here and will have tapering dose of steroids at home with her usual medications. She will follow-up with her risk lead next week Time Spent with Patient Time attestation: Total time spent providing and/or coordinating discharge services: 35 minutes Exam Narrative: Exam Narrative: condition on discharge blood pressure 124 over 50 pulse is 72 respirations 18 per minute saturating 88-90% on 8-9 L nasal cannula lungs clear prolonged expiratory phase distant breath sounds CV regular rate rhythm no murmurs abdomen is soft nontender extremities without edema distal pulses are 2+ neuro alert cooperative no focal deficits she was up independently though would 10 to desat with any heavy exertion. But was stable and able to be discharged home with family to follow-up with her risk lead at [place] next week DS: Data Data Completed and Pending Labs on day of discharge: Labs from last 24 hours 06/17/20 06/17/20 05:30 05:29 WBC 9.6 RBC 3.88 L Hgb 11.9 L Hct 36.5 L MCV 94.1 MCH 30.7 MCHC 32.6 RDW 15.3 H Plt Count 165 MPV 11.8 H Sodium 137 Po
== END 2020-06-17 12:31 | disposition home or self-care (01) | DRG 190 ==
LOC: ANHED 12:45 → ANHIMU 16:52
PROVIDERS: Family Medicine; Internal Medicine Critical Care Medicine; Physician Assistant; Admitting Provider Internal Medicine; Emergency Provider Emergency Medicine; PCP Family Medicine; Visit Provider Internal Medicine
DX: J44.1 Chronic obstructive pulmonary disease with (acute) exacerbation (principal); J96.21 Acute and chronic respiratory failure with hypoxia; J84.9 Interstitial pulmonary disease, unspecified; E03.9 Hypothyroidism, unspecified; E78.5 Hyperlipidemia, unspecified; N18.30 Chronic kidney disease, stage 3 unspecified; I27.20 Pulmonary hypertension, unspecified; D63.1 Anemia in chronic kidney disease; K21.9 Gastro-esophageal reflux disease without esophagitis; M19.90 Unspecified osteoarthritis, unspecified site; Z96.659 Presence of unspecified artificial knee joint; Z66 Do not resuscitate; Z87.442 Personal history of urinary calculi; Z90.49 Acquired absence of other specified parts of digestive tract; Z87.891 Personal history of nicotine dependence; Z86.718 Personal history of other venous thrombosis and embolism; Z98.49 Cataract extraction status, unspecified eye; Z99.81 Dependence on supplemental oxygen
CPT/HCPCS: 36415; 36600; 71045; 71275; 80048; 80053; 82375; 82805; 83050; 83735; 83880; 84439; 84443; 84480; 84484; 85025; 85027; 85380; 93005; 94640; 94667; 96374; 99285; A9270; G0378; J0456; J0696; J1650; J2920; J2930; Q9967

== ENCOUNTER 2020-07-15 08:59 | Emergency (ER) | payer MEDICARE, OTHER, SELFPAY ==
[2020-07-15] VITALS (36 sets, daily range): BP systolic 74–188; BP diastolic 51–100; PULSE 67–92; RESP 14–35; TEMP 36.5; O2SAT 80–99
--- NOTE | ~2020-07-15 | US_ITS ---
EXAMINATION:US venous doppler LE BI INDICATION:Swelling and leg pain TECHNIQUE: Multiple grayscale, color flow and Doppler images of the right and left lower extremity de ep venous systems were obtained and reviewed. COMPARISON:No prior studies for comparison. FINDINGS: The common femoral, superficial femoral and popliteal veins demonstrate normal respiratory variation, augmentation and compressibility. Color flow is also seen within the posterior tibial, pe roneal, greater saphenous and profunda veins. IMPRESSION: 1: No lower extremity deep venous thrombosis. Reviewed, dictated and finalized at location A. TRIMMER
--- NOTE | ~2020-07-15 | XR_ITS ---
XR chest 1V portable 07/15/2020 10:24 Indication: Shortness of breath. COPD. Hypertension. Leg swelling. Procedure: AP portable chest Comparison: Comparison to multiple prior studies sequentially, with oldest reviewed study dated 12/2015. Findings: There is diffuse bilateral interstitial infiltration. Heart size normal for technique. Ther e is atherosclerosis. The lungs are hyperinflated which is consistent with, but not diagnostic of chr onic obstructive pulmonary disease. No pleural effusion or pneumothorax. Impression: 1: Diffuse bilateral interstitial infiltration which may represent edema or pneumonia. Reviewed, dictated and finalized at location A. VISION PRODUCTION CLERK Impression: 1: Diffuse bilateral interstitial infiltration which may represent edema or pne fei.
--- NOTE | 2020-07-15 09:44 | ECG_ITS ---
Measurements Intervals [place] Rate: 76 P: 75 [place]: 235 QRS: 87 QRSD: 86 T: 24 QT: 378 QTc: 425 Interpretive Statements SINUS RHYTHM WITH FIRST DEGREE AV BLOCK DELAYED PRECORDIAL R/S TRANSITION BASELINE ARTIFACT- I, II, III, AVR, AVL, AVF, V1-V2 ABNORMAL ECG Electronically Signed On 07-15-2020 10:43:26 SIGNAL TESTER by Chaka Alonzo D.O.
[2020-07-15 10:10] LABS: Alveolar/Arterial O2 Gradient 228.6 mmHg; Base Excess ABG -0.2 mEq/l (+/-2.0); Carboxyhemoglobin 0.7 % THb (0-2.0); Fractional Inspired Oxygen 44 %; HCO3 ABG 24.4 mEq/l (22.0-26.0); Methemoglobin ABG 0.1 %THb (0-1.5); Oxygen Content ABG 12.7 %vol (16.0-22.0); Oxyhemoglobin 74.8 % THb (90.0-100.0); PCO2 ABG 39.7 mmHg (35.0-45.0); PO2 FiO2 Ratio Arterial Blood 0.91 %; Reduced Hemoglobin 24.4 %THb (0-5.0); Total Hemoglobin 12.1 g/dL (12.0-18.0); pH ABG 7.407 (7.350-7.450)
[2020-07-15 10:13] LABS: PO2 ABG 39.9 mmHg (80.0-100.0)
[2020-07-15 10:14] LABS: Modified Allen's Test Pass; Oxygen Saturation ABG 75.4 % (95.0-100.0); Site Drawn RIGHT RADIAL
[2020-07-15 10:16] LABS: Basophils Percent Auto 0.3 % (0.2-1.2); Eosinophils Absolute Auto 0.1 K/mm3 (0-0.3); Eosinophils Percent Auto 1.2 % (0-4.4); Hematocrit 35.1 % (37.0-47.0); Hemoglobin 11.4 g/dL (12.0-15.0); Immature Granulocyte Absolute 0.03 K/mm3 (0.00-0.031); Immature Granulocyte Percent A 0.5 % (0-0.5); Lymphocytes Absolute Auto 0.91 K/mm3 (0.9-3.2); Lymphocytes Percent Auto 15.2 % (18.3-44.2); Mean Corpuscular HGB Conc 32.5 g/dl (32-36); Mean Corpuscular Hemoglobin 30.8 pg (26-34); Mean Corpuscular Volume 94.9 fl (80-100); Mean Platelet Volume 10.1 fl (7.4-10.4); Monocytes Absolute Auto 0.5 K/mm3 (0.1-0.6); Neutrophils Absolute Auto 4.4 K/mm3 (1.3-6.7); Neutrophils Percent Auto 73.8 % (45.5-73.1); Platelet Count Result 198 k/mm3 (150-375); Red Cell Distribution Width 15.7 % (11.5-14.5)
[2020-07-15 10:29] LABS: Partial Thromboplastin Time 34.2 SECONDS (22.3-36.8)
[2020-07-15 10:30] LABS: Anion Gap 7 mmol/L (8-16); Blood Urea Nitrogen 15 mg/dL (7-17); Calcium 8.7 mg/dL (8.4-10.2); Carbon Dioxide 28 mmol/L (22-30); Chloride 106 mmol/L (98-107); Estimated CRCL calculation 46 ml/min; Estimated Glomerular Filt Rate 54; Glucose 106 mg/dL (65-105); Potassium 3.4 mmol/L (3.4-5.0); Sodium 141 mmol/L (137-145)
--- NOTE | 2020-07-15 10:30 | ED.EXTPRO ---
HPI - Extremity Problem General Chief complaint: Extremity Problem,Nontraumatic Stated complaint: swelling to legs Time Seen by Provider: 07/15/20 09:44 Source: patient Mode of arrival: EMS Limitations: no limitations History of Present Illness HPI Narrative: This patient is a 75 year old female with history of pulmonary hypertension, Emphysema who presents from home for evaluation of bilateral feet and leg swelling. She states over the past few days both her feet have been swollen. She has improvement when she lays down at night. She states she had trouble getting her shoes on today. She takes lasix daily. She denies chest pain or any worsening shortness of breath. She wears 8L high flow NC at home at baseline. She states she does not feel more short of breath than usual. She also reports she is having difficulty urinating this morning. She reports she is only urinating small dribbles. She denies fever, abdominal pain, hematuria or dysuria. Related Data Home Medications Medication Instructions Recorded Confirmed albuterol sulfate 90 mcg/actuation 2 inhalation INHALATION Q4-6H PRN 03/07/20 06/29/20 aerosol inhaler gm famotidine 20 mg tablet 20 mg PO BID tablet 03/07/20 06/29/20 tadalafil (pulm. hypertension) 20 40 mg PO DAILY tablet 03/07/20 06/29/20 mg tablet (pulmonary hypertension) acetaminophen 500 mg capsule 500 mg PO Q6H PRN 03/08/20 06/08/20 furosemide 20 mg tablet 40 mg PO DAILY 03/08/20 06/29/20 Anoro Ellipta 1 inh INHALATION DAILY 06/08/20 06/29/20 Opsumit 10 mg PO DAILY 06/08/20 06/29/20 atorvastatin 10 mg PO HS 06/08/20 06/29/20 multivitamin with iron 1 tablet PO DAILY 06/08/20 06/29/20 docusate sodium 100 mg capsule 100 mg PO BID 06/29/20 06/29/20 guaifenesin 1,200 mg tablet, 1,200 mg PO Q12H 06/29/20 06/29/20 extended release 12 hr mecobalamin (vitamin B12) 1,000 3,000 mcg SUBLINGUAL DAILY tablet 06/29/20 06/29/20 mcg disintegrating tablet,sublingual melatonin 10 mg capsule 10 mg PO QPM cap 06/29/20 06/29/20 treprostinil INHALATION 07/15/20 umeclidinium-vilanterol 1 inh INHALATION DAILY 07/15/20 Allergies Allergy/AdvReac Type Severity Reaction Status Date / Time codeine AdvReac Unknown Nausea Verified 07/15/20 09:34 adhesive tape AdvReac Rash Verified 07/15/20 09:34 oxybutynin AdvReac Anxiety Verified 07/15/20 09:35 Review of Systems Review of Systems: All systems reviewed & are unremarkable except as noted in HPI and below Constitutional: Constitutional: Denies chills and Denies fever(s) ENT: Denies nasal congestion and Denies sore throat Cardiovascular: Cardiovascular: Denies chest pain Respiratory: Respiratory: Denies cough Gastrointestinal: Gastrointestinal: Denies abdominal pain, Denies diarrhea, Denies nausea and Denies vomiting Genitourinary: Genitourinary: Reports nocturia, Denies dysuria and Denies urinary incontinence PMF Past Medical History Medical History Adrenal adenoma Status post resection. Anemia With history of blood transfusion. Brain aneurysm (~1991) Status post craniotomy and coiling. Chronic kidney disease, stage 3 Baseline creatinine ranges between 1.2 and 1.30. Chronic obstructive pulmonary disease Chronic respiratory failure with hypoxia On 6 L nasal cannula. Deep venous thrombosis Dyslipidemia GERD without esophagitis History of renal stone Hypothyroidism Incisional hernia Interstitial lung disease Osteoarthritis Pancreatitis (~05/2017) Pulmonary hypertension Surgical History Surgical History History of cardiac catheterization History of cataract extraction History of cerebral aneurysm repair (~1992) History of cholecystectomy History of knee replacement (~1990) Partial left knee replacement. History of removal of calculus of renal pelvis through percutaneous nephrostomy (~03/2019) History of right breast biopsy
[2020-07-15 10:40] LABS: NT Pro B Type Natriuretic Pept 933 PG/ML (5-100); Troponin I < 0.012 ng/mL (0.000-0.034)
[2020-07-15 11:49] LABS: Add Urine Microscopic? NO; Appearance Urine Clear (Clear); Bilirubin Urine Negative (Negative); Blood Urine Negative (Negative); Color Urine Straw (Yellow); Glucose Urine UA Negative (Negative); Ketones Urine Negative (Negative); Leukocyte Esterase Ur Negative LEU/UL (Negative); Nitrate Urine Negative (Negative); Protein Urine Negative (Negative); Specific Grav Ur 1.012 (1.001-1.035); Urobilinogen Urine Negative mg/dL (<2.0)
[2020-07-15 23:32] LABS: SARS-CoV-2 RNA PCR Negative
[2020-07-17 11:35] LABS: Device NASAL CANNULA
== END 2020-07-15 14:57 | disposition home or self-care (01) ==
PROVIDERS: Emergency Provider General Practice; PCP Family Medicine
DX: J96.11 Chronic respiratory failure with hypoxia (principal); J84.9 Interstitial pulmonary disease, unspecified; I27.20 Pulmonary hypertension, unspecified; R33.9 Retention of urine, unspecified; Z20.828 Contact with and (suspected) exposure to other viral communicable diseases; J43.9 Emphysema, unspecified; N18.30 Chronic kidney disease, stage 3 unspecified; E78.5 Hyperlipidemia, unspecified; K21.9 Gastro-esophageal reflux disease without esophagitis; Z87.442 Personal history of urinary calculi; E03.9 Hypothyroidism, unspecified; M19.90 Unspecified osteoarthritis, unspecified site; Z98.49 Cataract extraction status, unspecified eye; Z96.652 Presence of left artificial knee joint; Z66 Do not resuscitate; Z87.891 Personal history of nicotine dependence; I44.0 Atrioventricular block, first degree; R94.31 Abnormal electrocardiogram [ECG] [EKG]; R91.8 Other nonspecific abnormal finding of lung field; Z99.81 Dependence on supplemental oxygen
CPT/HCPCS: 36415; 36600; 51701; 71045; 80048; 81003; 82375; 82805; 83050; 83880; 84484; 85025; 85610; 85730; 87635; 93005; 93970; 99284; C9803; U0003

== ENCOUNTER 2020-08-07 14:53 | Emergency (ER) | payer MEDICARE, OTHER, SELFPAY ==
[2020-08-07] VITALS (22 sets, daily range): BP systolic 105–128; BP diastolic 55–97; PULSE 65–87; RESP 18–31; TEMP 36.1; O2SAT 84–95
--- NOTE | ~2020-08-07 | XR_ITS ---
EXAMINATION: XR chest 1V portable EXAM DATE: 08/07/2020 15:36 INDICATION: Shortness of breath, cough. Hypertension and COPD. TECHNIQUE: Portable AP frontal chest x-ray was obtained. Comparison is made to prior examination from 07/15/2020. FINDINGS: There is abnormal reticulation, interstitial lung disease and/or mild pulmonary edema. Mild cardiomegaly. Mild hyperinflation. No confluent consolidation, pneumothorax or pleural effusion susp ected. The bones are osteopenic. There are bony degenerative changes. There is aortic arterioscleros is. IMPRESSION: Persistent abnormal reticulation, acute edema and/or chronic interstitial lung disease. Reviewed, dictated and finalized at location B. MENTAL IRON ERECTOR IMPRESSION: Persistent abnormal reticulation, acute edema and/or chronic inters titial lung disease.
--- NOTE | 2020-08-07 14:54 | ECG_ITS ---
Measurements Intervals [place] Rate: 90 P: 33 GA: 262 QRS: 94 QRSD: 96 T: -63 QT: 349 QTc: 427 Interpretive Statements SINUS RHYTHM WITH FIRST DEGREE AV BLOCK RIGHT AXIS DEVIATION BORDERLINE ST ABNORMALITY- INFERIOR LEADS BASELINE ARTIFACT- I, II, III, AVR, AVL, AVF, V1-V6 ABNORMAL ECG Electronically Signed On 08-07-2020 16:00:11 SCHOOL MANAGER by Chaka Alonzo D.O.
--- NOTE | 2020-08-07 15:30 | PC.NURSE ---
patient brought back to ED room 7 with increased dyspnea. see initial notes. alert. oriented. on public health internship. EKG done. SL inserted and labs drawn. in room. side rails up x 2 with call light in reach. denies needs at this time.
[2020-08-07 15:33] LABS: Basophils Percent Auto 0.6 % (0.2-1.2); Eosinophils Absolute Auto 0.2 K/mm3 (0-0.3); Eosinophils Percent Auto 2.1 % (0-4.4); Hematocrit 35.6 % (37.0-47.0); Hemoglobin 11.5 g/dL (12.0-15.0); Immature Granulocyte Absolute 0.02 K/mm3 (0.00-0.031); Immature Granulocyte Percent A 0.3 % (0-0.5); Lymphocytes Absolute Auto 1.01 K/mm3 (0.9-3.2); Lymphocytes Percent Auto 14.1 % (18.3-44.2); Mean Corpuscular HGB Conc 32.3 g/dl (32-36); Mean Corpuscular Hemoglobin 30.6 pg (26-34); Mean Corpuscular Volume 94.7 fl (80-100); Mean Platelet Volume 10.5 fl (7.4-10.4); Monocytes Absolute Auto 0.5 K/mm3 (0.1-0.6); Monocytes Percent Auto 7.3 % (2.6-8.5); Neutrophils Absolute Auto 5.4 K/mm3 (1.3-6.7); Neutrophils Percent Auto 75.6 % (45.5-73.1); Platelet Count Result 217 k/mm3 (150-375); Red Blood Count 3.76 M/mm3 (4.2-5.4); Red Cell Distribution Width 16.9 % (11.5-14.5); White Blood Count 7.2 K/mm3 (4.5-10.0)
--- NOTE | 2020-08-07 16:00 | PC.NURSE ---
provider in room now. additional orders placed.
[2020-08-07 16:04] LABS: NT Pro B Type Natriuretic Pept 3090 PG/ML (5-100); Troponin I < 0.012 ng/mL (0.000-0.034)
[2020-08-07 16:05] LABS: Anion Gap 10 mmol/L (8-16); Blood Urea Nitrogen 19 mg/dL (7-17); Calcium 8.8 mg/dL (8.4-10.2); Carbon Dioxide 27 mmol/L (22-30); Chloride 104 mmol/L (98-107); Estimated CRCL calculation 42 ml/min; Estimated Glomerular Filt Rate 48; Glucose 106 mg/dL (65-105); Potassium 3.2 mmol/L (3.4-5.0); Sodium 141 mmol/L (137-145)
--- NOTE | 2020-08-07 16:06 | ED.SOB ---
HPI - SOB/Dyspnea General Chief Complaint: Shortness of Breath/Dyspnea Stated Complaint: breathing difficulties Time Seen by Provider: 08/07/20 15:52 Source: patient and family Limitations: no limitations History of Present Illness HPI Narrative: 75 years old white female presents with increased shortness of breath over the last several days. Patient denies any fever, chills, nausea, vomiting, chest pain, lightheadedness, headache, sore throat, exposure to anybody known having COVID-19. History of COPD on 8 L of oxygen by nasal cannula all the time. Patient report her oxygenation is okay as long as she is sitting, when she get up and walk her oxygenation dropped immediately. Patient been to pulmonary rehab in the past. Related Data Home Medications Medication Instructions Recorded Confirmed albuterol sulfate 90 mcg/actuation 2 inhalation INHALATION Q4-6H PRN 03/07/20 06/29/20 aerosol inhaler gm famotidine 20 mg tablet 20 mg PO BID tablet 03/07/20 06/29/20 tadalafil (pulm. hypertension) 20 40 mg PO DAILY tablet 03/07/20 06/29/20 mg tablet (pulmonary hypertension) acetaminophen 500 mg capsule 500 mg PO Q6H PRN 03/08/20 06/08/20 furosemide 20 mg tablet 40 mg PO DAILY 03/08/20 06/29/20 Anoro Ellipta 1 inh INHALATION DAILY 06/08/20 06/29/20 Opsumit 10 mg PO DAILY 06/08/20 06/29/20 atorvastatin 10 mg PO HS 06/08/20 06/29/20 multivitamin with iron 1 tablet PO DAILY 06/08/20 06/29/20 docusate sodium 100 mg capsule 100 mg PO BID 06/29/20 06/29/20 guaifenesin 1,200 mg tablet, 1,200 mg PO Q12H 06/29/20 06/29/20 extended release 12 hr mecobalamin (vitamin B12) 1,000 3,000 mcg SUBLINGUAL DAILY tablet 06/29/20 06/29/20 mcg disintegrating tablet,sublingual melatonin 10 mg capsule 10 mg PO QPM cap 06/29/20 06/29/20 treprostinil INHALATION 07/15/20 umeclidinium-vilanterol 1 inh INHALATION DAILY 07/15/20 Allergies Allergy/AdvReac Type Severity Reaction Status Date / Time codeine AdvReac Unknown Nausea Verified 07/15/20 09:34 adhesive tape AdvReac Rash Verified 07/15/20 09:34 oxybutynin AdvReac Anxiety Verified 07/15/20 09:35 Review of Systems Review of Systems: Narrative: CONSTITUTIONAL: Denies fever, chills, or sweats. EYES: Denies visual changes, redness, or discharge. ENT: Denies rhinorrhea, congestion, sore throat, or otalgia. CARDIOVASCULAR: Denies chest pain, palpitations, or edema. RESPIRATORY: Denies cough or dyspnea. GASTROINTESTINAL: Denies abdominal pain, nausea, vomiting, or diarrhea. GENITOURINARY: Denies dysuria or hematuria. SKIN: Denies rash or itching. MUSCULOSKELETAL: Denies back pain, joint pain, or myalgia. NEUROLOGIC: Denies headache, numbness, or weakness. PSYCHIATRIC: Denies anxiety or depression. [facility] Past Medical History Medical History Adrenal adenoma Status post resection. Anemia With history of blood transfusion. Brain aneurysm (~1991) Status post craniotomy and coiling. Chronic kidney disease, stage 3 Baseline creatinine ranges between 1.2 and 1.30. Chronic obstructive pulmonary disease Chronic respiratory failure with hypoxia On 6 L nasal cannula. Deep venous thrombosis Dyslipidemia GERD without esophagitis History of renal stone Hypothyroidism Incisional hernia Interstitial lung disease Osteoarthritis Pancreatitis (~05/2017) Pulmonary hypertension Surgical History Surgical History History of cardiac catheterization History of cataract extraction History of cerebral aneurysm repair (~1992) History of cholecystectomy History of knee replacement (~1990) Partial left knee replacement. History of removal of calculus of renal pelvis through percutaneous nephrostomy (~03/2019) History of right breast biopsy History of tonsillectomy History of total adrenalectomy 2009 - Right adrenalectomy with pathology demonstrating a benign adrenal adenoma. History of tubal ligation Fam
[2020-08-07 16:24] LABS: Thyroid Stimulating Hormone 0.657 uIU/mL (0.465-4.680)
[2020-08-07 16:26] LABS: Alveolar/Arterial O2 Gradient 401.3 mmHg; Base Excess ABG 0.9 mEq/l (+/-2.0); Device SIMPLE MASK; Fractional Inspired Oxygen 70 %; HCO3 ABG 24.3 mEq/l (22.0-26.0); Modified Allen's Test Pass; Oxygen Saturation ABG 92.7 % (95.0-100.0); Oxyhemoglobin 90.2 % THb (90.0-100.0); PCO2 ABG 34.7 mmHg (35.0-45.0); PO2 ABG 60.5 mmHg (80.0-100.0); PO2 FiO2 Ratio Arterial Blood 0.86 %; Site Drawn RIGHT RADIAL; Total Hemoglobin 11.8 g/dL (12.0-18.0); pH ABG 7.464 (7.350-7.450)
[2020-08-07 16:27] LABS: Alanine Aminotransferase 10 U/L (4-35); Albumin Level 3.7 g/dL (3.5-5.1); Alkaline Phosphatase 89 U/L (38-126); Aspartate Amino Transferase 23 U/L (14-36); Bilirubin,Total 0.7 mg/dL (0.2-1.3)
[2020-08-07 16:36] LABS: NT Pro B Type Natriuretic Pept 3150 PG/ML (5-100)
--- NOTE | 2020-08-07 17:06 | PC.NURSE ---
patient still on simple mask at 8L. patient did ambulate to restroom per tech's report. sat down to 70%. recovered. sat now 96% back on mask. alert. oriented. in room. waiting for further orders from provider.
[2020-08-07] MEDS: POTASSIUM CHLORIDE 20 MEQ PACKET (FOR LIQUID) 40 MEQ PO (17:25)
[2020-08-07 17:34] LABS: Free T4 Free Thyroxine 2.27 ng/mL (0.78-2.19)
--- NOTE | 2020-08-07 17:50 | PC.NURSE ---
SBAR completed. waiting for bed assignment upstairs for admission. in room. both aware of plan for admission.
--- NOTE | 2020-08-07 18:03 | PC.NURSE ---
spoke with Nichelle at [facility]. patient can go to bed [id number]. report #[phone].
--- NOTE | 2020-08-07 18:23 | PC.NURSE ---
[facility], [facility], and [facility] were all called to transfer patient to [place]. all companies declined due to shortage of trucks. [facility] was called and an eta of [phone]
--- NOTE | 2020-08-07 18:29 | PC.NURSE ---
paperwork done for transfer to [facility] EMS will be here at 1930. patient and aware.
--- NOTE | 2020-08-07 18:39 | PC.NURSE ---
patient has NC on now at 8L. wants to drink potassium supplement now and eat something prior to transfer to [place].
--- NOTE | 2020-08-07 18:55 | PC.NURSE ---
patient placed on 8L NC O2 so she can eat and take meds. aware of EMS transfer at 1930. attempted to call report but no answer.
--- NOTE | 2020-08-07 19:27 | PC.NURSE ---
report given to Trent SAMSON at [facility] here also. report given. patient released to EMS care for transport.
[2020-08-08 18:44] LABS: SARS-CoV-2 RNA PCR Negative
[2020-08-09 22:40] LABS: Triiodothryronine T3 Uptake 34 % (22-35)
== END 2020-08-07 19:29 | disposition short-term general hospital (02) ==
PROVIDERS: Emergency Provider Emergency Medicine; PCP Family Medicine; Visit Provider Family Medicine
DX: I27.20 Pulmonary hypertension, unspecified (principal); J44.9 Chronic obstructive pulmonary disease, unspecified; I50.9 Heart failure, unspecified; E87.6 Hypokalemia; Z20.828 Contact with and (suspected) exposure to other viral communicable diseases; N18.30 Chronic kidney disease, stage 3 unspecified; D64.9 Anemia, unspecified; J96.11 Chronic respiratory failure with hypoxia; Z86.718 Personal history of other venous thrombosis and embolism; E78.5 Hyperlipidemia, unspecified; K21.9 Gastro-esophageal reflux disease without esophagitis; Z87.442 Personal history of urinary calculi; M19.90 Unspecified osteoarthritis, unspecified site; Z99.81 Dependence on supplemental oxygen; Z98.49 Cataract extraction status, unspecified eye; Z96.652 Presence of left artificial knee joint; Z87.891 Personal history of nicotine dependence
CPT/HCPCS: 36415; 36600; 71045; 80048; 80076; 82805; 83880; 84439; 84443; 84479; 84484; 85025; 87635; 93005; 99285; A9270; C9803; J1940; U0003

== ENCOUNTER 2020-09-22 10:25 | Emergency (ER) | payer MEDICARE, OTHER, SELFPAY ==
[2020-09-22] VITALS (27 sets, daily range): BP systolic 94–133; BP diastolic 61–90; PULSE 64–90; RESP 16–25; TEMP 36.7; O2SAT 84–100
--- NOTE | ~2020-09-22 | CT_ITS ---
EXAMINATION: CT abdomen pelvis wo con DATE: 09/22/2020 12:48 INDICATION: Kidney stones TECHNIQUE: Computed tomography (CT) of the abdomen and pelvis was performed without intravenous contr ast. The dose-length product was 317.59 mGy-cm. Automated exposure control and iterative reconstructi on technique were employed. COMPARISON: CT dated 11/25/2018 FINDINGS: There is a 7 mm nodule partially visualized on the right lower lobe, image 1. There is depe ndent airspace disease in the lower lobes bilaterally. No significant pleural or pericardial effusion . Heart size is normal. There is atherosclerosis. Small hiatal hernia. There are cholecystectomy clip s. There are are calcified granulomas of the spleen. There is a punctate 2 mm nonobstructing right re nal stone. There is left renal arterial calcification. No ureteral stones or hydronephrosis. There is atrophy of the pancreatic head with fatty replacement. Nonobstructive bowel gas pattern. There are s mall soft tissue nodules anterior abdominal wall, likely related to prior injections. Colonic diverti culosis without evidence for diverticulitis. There is moderate osteoarthritis of the hips. Osteopenia . Severe lumbar spondylosis with grade 1 degenerative spondylolisthesis at L4-5. Mild chronic superio r endplate compression deformities of T12 and L1. Right adrenal gland is surgically absent. IMPRESSION: 1. 2 mm nonobstructing right renal stone. 2: 7 mm right lower lobe nodule, likely unchanged from CT dated 03/09/2017. Follow-up low dose CT [address] in 12 months recommended. 3: Bilateral lower lobe airspace disease may represent atelectasis and/or pneumonia. Reviewed, dictated and finalized at location B. L SPRAYING MACHINE OPERATOR IMPRESSION: 1. 2 mm nonobstructing right renal stone. 2: 7 mm right lower lobe nodule, likely unchanged from CT dated 03/09/2017. Fol low-up low dose CT chest in 12 months recommended. 3: Bilateral lower lobe airspace disease may represent atelectasis and/or pneu monia.
--- NOTE | ~2020-09-22 | XR_ITS ---
XR abdomen/kub 1V 09/22/2020 12:55 INDICATION: Kidney stones TECHNIQUE: KUB COMPARISON: 06/19/2006 FINDINGS: Bowel gas pattern is normal. Moderate colonic fecal loading. There is no evidence of free a ir, mass, organomegaly, ascites or obstruction. No abnormal calculi are seen. The bones appear inta ct. Moderate lumbar spondylosis. IMPRESSION: 1: No acute abdominal abnormality identified. Reviewed, dictated and finalized at location B. BODIED SEAMAN
[2020-09-22 10:57] LABS: Basophils Percent Auto 0.3 % (0.2-1.2); Eosinophils Absolute Auto 0.1 K/mm3 (0-0.3); Eosinophils Percent Auto 0.9 % (0-4.4); Hematocrit 41.6 % (37.0-47.0); Hemoglobin 13.6 g/dL (12.0-15.0); Immature Granulocyte Percent A 1.1 % (0-0.5); Lymphocytes Absolute Auto 1.02 K/mm3 (0.9-3.2); Lymphocytes Percent Auto 11.2 % (18.3-44.2); Mean Corpuscular HGB Conc 32.7 g/dl (32-36); Mean Corpuscular Hemoglobin 30.6 pg (26-34); Mean Corpuscular Volume 93.5 fl (80-100); Mean Platelet Volume 10.5 fl (7.4-10.4); Monocytes Absolute Auto 0.6 K/mm3 (0.1-0.6); Monocytes Percent Auto 6.9 % (2.6-8.5); Neutrophils Absolute Auto 7.2 K/mm3 (1.3-6.7); Neutrophils Percent Auto 79.6 % (45.5-73.1); Platelet Count Result 174 k/mm3 (150-375); Red Blood Count 4.45 M/mm3 (4.2-5.4); Red Cell Distribution Width 15.8 % (11.5-14.5); White Blood Count 9.1 K/mm3 (4.5-10.0)
[2020-09-22 11:09] LABS: Alanine Aminotransferase 19 U/L (4-35); Albumin Level 3.8 g/dL (3.5-5.1); Alkaline Phosphatase 77 U/L (38-126); Anion Gap 4 mmol/L (8-16); Aspartate Amino Transferase 23 U/L (14-36); Bilirubin,Total 0.7 mg/dL (0.2-1.3); Blood Urea Nitrogen 22 mg/dL (7-17); Carbon Dioxide 32 mmol/L (22-30); Chloride 104 mmol/L (98-107); Estimated CRCL calculation 38 ml/min; Estimated Glomerular Filt Rate 44; Glucose 105 mg/dL (65-105); Lipase 133 U/L (23-300); Potassium 3.9 mmol/L (3.4-5.0); Sodium 140 mmol/L (137-145)
[2020-09-22 11:36] LABS: Add Urine Microscopic? NO; Appearance Urine Clear (Clear); Bilirubin Urine Negative (Negative); Blood Urine Negative (Negative); Color Urine Straw (Yellow); Glucose Urine UA Negative (Negative); Ketones Urine Negative (Negative); Leukocyte Esterase Ur Negative LEU/UL (Negative); Nitrate Urine Negative (Negative); Protein Urine Negative (Negative); Urobilinogen Urine Negative mg/dL (<2.0)
--- NOTE | 2020-09-22 12:40 | ED.GENADULT ---
HPI - General Adult General Chief complaint: Urogenital-Female Stated complaint: No Urine Output Since Last Night Time Seen by Provider: 09/22/20 10:49 Source: patient, family and old records reviewed Mode of arrival: ambulatory Limitations: no limitations History of Present Illness HPI narrative: Patient is a 75-year-old female who presents for evaluation of dysuria that began last night woke up in the middle of the night was unable to urinate notes that she has been unable to urinate this morning patient know she took Lasix and still has not urinated which concerned her patient notes that she had otherwise felt fine denies any recent illness or other complaints. Patient notes in the past she had had a kidney stone with similar presentation. Patient denies any fever chills nausea vomiting URI symptoms or other complaints presents in no distress has not taken anything for her symptoms Related Data Home Medications Medication Instructions Recorded Confirmed albuterol sulfate 90 mcg/actuation 2 inhalation INHALATION Q4-6H PRN 03/07/20 08/24/20 aerosol inhaler gm famotidine 20 mg tablet 20 mg PO BID tablet 03/07/20 08/24/20 tadalafil (pulm. hypertension) 20 40 mg PO DAILY tablet 03/07/20 08/24/20 mg tablet (pulmonary hypertension) furosemide 20 mg tablet 40 mg PO DAILY 03/08/20 08/24/20 Anoro Ellipta 1 inh INHALATION DAILY 06/08/20 08/24/20 Opsumit 10 mg PO DAILY 06/08/20 08/24/20 multivitamin with iron 1 tablet PO DAILY 06/08/20 08/24/20 docusate sodium 100 mg capsule 100 mg PO BID 06/29/20 08/24/20 guaifenesin 1,200 mg tablet, 1,200 mg PO Q12H 06/29/20 08/24/20 extended release 12 hr mecobalamin (vitamin B12) 1,000 3,000 mcg SUBLINGUAL DAILY tablet 06/29/20 08/24/20 mcg disintegrating tablet,sublingual melatonin 10 mg capsule 10 mg PO QPM cap 06/29/20 08/24/20 treprostinil INHALATION 07/15/20 08/24/20 umeclidinium-vilanterol 1 inh INHALATION DAILY 07/15/20 08/24/20 macitentan 10 mg tablet 10 mg PO DAILY 08/24/20 08/24/20 mycophenolate mofetil 500 mg tablet 1,000 mg PO Q12H 08/24/20 08/24/20 sulfamethoxazole 800 1 tablet PO 3XW tablet 08/24/20 08/24/20 mg-trimethoprim 160 mg tablet Allergies Allergy/AdvReac Type Severity Reaction Status Date / Time codeine AdvReac Unknown Nausea Verified 09/22/20 11:10 adhesive tape AdvReac Rash Verified 09/22/20 11:10 oxybutynin AdvReac Anxiety Verified 09/22/20 11:10 Review of Systems Review of Systems: All systems reviewed & are unremarkable except as noted in HPI and below PMFSH Past Medical History Medical History Adrenal adenoma Status post resection. Anemia With history of blood transfusion. Brain aneurysm (~1991) Status post craniotomy and coiling. Chronic kidney disease, stage 3 Baseline creatinine ranges between 1.2 and 1.30. Chronic obstructive pulmonary disease Chronic respiratory failure with hypoxia On 6 L nasal cannula. Deep venous thrombosis Dyslipidemia GERD without esophagitis History of renal stone Hypothyroidism Incisional hernia Interstitial lung disease Osteoarthritis Pancreatitis (~05/2017) Pulmonary hypertension Surgical History Surgical History History of cardiac catheterization (~08/14/20) History of cataract extraction (~2014) History of cerebral aneurysm repair (~1992) History of cholecystectomy (~1978) History of knee replacement (~1990) Partial left knee replacement. History of removal of calculus of renal pelvis through percutaneous nephrostomy (~03/2019) History of right breast biopsy History of tonsillectomy (~1957) History of total adrenalectomy 2009 - Right adrenalectomy with pathology demonstrating a benign adrenal adenoma. History of tubal ligation (~1975) Family History Family History Mother Acute myocardial infarction Father Acute myocardial
--- NOTE | 2020-09-22 14:20 | PC.NURSE ---
pt c/o alot of pelvic pressure. voided on bedside commode. states relieved abd pain.
== END 2020-09-22 15:25 | disposition home or self-care (01) ==
PROVIDERS: Emergency Provider Emergency Medicine; PCP Family Medicine
DX: R10.9 Unspecified abdominal pain (principal); N18.30 Chronic kidney disease, stage 3 unspecified; J44.9 Chronic obstructive pulmonary disease, unspecified; J96.11 Chronic respiratory failure with hypoxia; Z99.81 Dependence on supplemental oxygen; Z86.718 Personal history of other venous thrombosis and embolism; K21.9 Gastro-esophageal reflux disease without esophagitis; Z87.442 Personal history of urinary calculi; M19.90 Unspecified osteoarthritis, unspecified site; J84.9 Interstitial pulmonary disease, unspecified; I27.20 Pulmonary hypertension, unspecified; Z98.49 Cataract extraction status, unspecified eye; Z96.652 Presence of left artificial knee joint; Z87.891 Personal history of nicotine dependence; Z86.2 Personal history of diseases of the blood and blood-forming organs and certain disorders involving the immune mechanism
CPT/HCPCS: 36415; 51701; 74018; 74176; 80053; 81003; 83690; 85025; 96374; 99284; J0131

== ENCOUNTER 2020-10-03 11:34 | Outpatient (CLI) | payer MEDICARE, OTHER, SELFPAY ==
--- NOTE | ~2020-10-03 | XR_ITS ---
XR chest 2V DATE: 10/03/2020 11:58 INDICATION: Shortness of breath, cough, lung rattles. Interstitial lung disease. TECHNIQUE: AP and lateral views COMPARISON: 08/07/2020 portable AP chest 06/08/2020 CT pulmonary FINDINGS: The lungs are hyperinflated, consistent with COPD. There are interstitial infiltrates and/or fibrosis involving both lower lung zones, relatively stable since 07/30/2020. No pulmonary vascular congestion or pleural effusion or pneumothorax. Normal heart size. No hilar or mediastinal enlargement. Aortic arch calcification. Prominent diffuse osteopenia. Degenerative spurring of the thoracic spine. IMPRESSION: Bilateral lower lung interstitial infiltrate and/or fibrosis; little interval change sinc e 08/07/2020 COPD Reviewed, dictated and finalized at location A. HAT INSPECTOR AND PACKER IMPRESSION: Bilateral lower lung interstitial infiltrate and/or fibrosis; littl e interval change since 08/07/2020 COPD
== END 2020-10-03 11:35 | disposition home or self-care (01) ==
PROVIDERS: PCP Family Medicine
DX: J84.9 Interstitial pulmonary disease, unspecified (principal); J44.9 Chronic obstructive pulmonary disease, unspecified
CPT/HCPCS: 71046

== ENCOUNTER 2020-11-08 19:14 | Inpatient (IN) | payer MEDICARE, OTHER, SELFPAY ==
[2020-11-08] VITALS (8 sets, daily range): BP systolic 119–128; BP diastolic 62–94; PULSE 88–110; RESP 20–30; TEMP 36.7–37.9; O2SAT 84–99; BMI 29.9
--- NOTE | ~2020-11-08 | XR_ITS ---
EXAMINATION: XR chest 1V portable DATE: 11/08/2020 20:23 INDICATION: Shortness of breath. TECHNIQUE: A single frontal view of the chest was obtained. COMPARISON: Chest 2 views 10/03/2020, chest CT 06/08/2020 FINDINGS: There are lucencies in the lungs, consistent with emphysema. Calcified bilateral pulmonary nodules are consistent with old granulomatous disease. There are mild airspace opacities in the lower lung zones. No pleural effusion or pneumothorax. The heart size is normal. IMPRESSION: 1. Mild airspace opacities in the lower lung zones, likely atelectasis. 2. Severe emphysema. Reviewed, dictated and finalized at location A.
--- NOTE | ~2020-11-08 | CT_ITS ---
EXAMINATION: CTA chest PE protocol EXAM DATE: 11/10/2020 14:38 INDICATION: Shortness of breath, elevated ddimer. TECHNIQUE: Spiral CTA of the chest (pulmonary arteries) was performed with 100 cc Omnipaque 350 intr avenous contrast injection. Images were acquired during the pulmonary arterial phase. Coronal maxi mum intensity projection 3D-reconstructions were created by the technologist on dedicated workstation . Axial, coronal and sagittal reformatted images were reviewed. The dose-length product (DLP) for t his examination was 365.07 mGy-cm. The exposure was tailored according to patient size (auto mA exp osure control), and iterative reconstruction (ASIR) was used as additional dose reduction technique. Comparison is made to prior examination from 06/08/2026. FINDINGS: The main, central pulmonary arteries are dilated which can indicate elevated pulmonary chip rial pressure, pulmonary arterial hypertension. There are no pulmonary emboli in the 1st through 3rd order (central and interlobar) pulmonary arteries. Some loss of attenuation in the basilar segmenta l pulmonary from respiratory motion, these regions not confidently evaluated. No Intraluminal filling defects identified. No thoracic aortic dissection. There is moderate emphysema. Scattered postinfectious residua unchanged. Basilar intralobular septal thickening, could be mild interstitial lung disease and/or pulmonary edema. This is more pronounced t roth on previous exam. There are no pleural or pericardial effusions. Tracheobronchial tree is paten t. There is no mediastinal, hilar or axillary lymphadenopathy. There is no pneumothorax. Heart normal in size. There is mild coronary arterial calcification, arterial sclerosis. Upper abdomen i s unremarkable. There is thoracic spondylosis without osteoblastic or osteolytic lesions identified . IMPRESSION: 1. No central pulmonary emboli. Limited basilar segmental evaluation. 2. Interlobular septal thickening at lung bases could be mild interstitial lung disease an/or pulmon dano edema. 3. Moderate emphysema. 4. Pulmonary arterial hypertension. Reviewed, dictated and finalized at location A. IMPRESSION: 1. No central pulmonary emboli. Limited basilar segmental evaluation. 2. Interlobular septal thickening at lung bases could be mild interstitial tommie g disease an/or pulmonary edema. 3. Moderate emphysema. 4. Pulmonary arterial hypertension.
--- NOTE | 2020-11-08 19:29 | ECG_ITS ---
Measurements Intervals [place] Rate: 110 P: 77 DC: 243 QRS: 104 QRSD: 89 T: 60 QT: 302 QTc: 409 Interpretive Statements SINUS TACHYCARDIA WITH FIRST DEGREE AV BLOCK RIGHT AXIS DEVIATION DELAYED PRECORDIAL R/S TRANSITION NONSPECIFIC T-WAVE ABNORMALITY- HIGH LATERAL LEADS BASELINE ARTIFACT- I, II, III, AVR, AVL, AVF, V1-V6 ABNORMAL ECG Electronically Signed On 11-10-2020 13:08:48 CDT by Chaka Alonzo D.O.
[2020-11-08 20:01] LABS: Basophils Percent Auto 0.2 % (0.2-1.2); Eosinophils Percent Auto 0.1 % (0-4.4); Hemoglobin 12.2 g/dL (12.0-15.0); Immature Granulocyte Absolute 0.06 K/mm3 (0.00-0.031); Immature Granulocyte Percent A 0.5 % (0-0.5); Lymphocytes Absolute Auto 0.31 K/mm3 (0.9-3.2); Lymphocytes Percent Auto 2.4 % (18.3-44.2); Mean Corpuscular Volume 91.1 fl (80-100); Mean Platelet Volume 10.8 fl (7.4-10.4); Monocytes Absolute Auto 0.9 K/mm3 (0.1-0.6); Monocytes Percent Auto 6.7 % (2.6-8.5); Neutrophils Absolute Auto 11.5 K/mm3 (1.3-6.7); Neutrophils Percent Auto 90.1 % (45.5-73.1); Platelet Count Result 233 k/mm3 (150-375); Red Blood Count 4.06 M/mm3 (4.2-5.4); Red Cell Distribution Width 15.3 % (11.5-14.5); White Blood Count 12.8 K/mm3 (4.5-10.0)
[2020-11-08 20:08] LABS: Device NON-REBREATHER MASK; Fractional Inspired Oxygen 90 %; HCO3 ABG 25.3 mEq/l (22.0-26.0); Modified Allen's Test Pass; Oxygen Saturation ABG 89.9 % (95.0-100.0); Oxyhemoglobin 86.7 % THb (90.0-100.0); PCO2 ABG 35.4 mmHg (35.0-45.0); PO2 ABG 53.4 mmHg (80.0-100.0); PO2 FiO2 Ratio Arterial Blood 0.59 %; Site Drawn RIGHT RADIAL; Total Hemoglobin 13.1 g/dL (12.0-18.0); pH ABG 7.472 (7.350-7.450)
[2020-11-08 20:11] LABS: Prothrombin Time 13.6 Seconds (11.1-14.7)
[2020-11-08 20:12] LABS: Anion Gap 10 mmol/L (8-16); Blood Urea Nitrogen 15 mg/dL (7-17); Calcium 9.1 mg/dL (8.4-10.2); Carbon Dioxide 26 mmol/L (22-30); Chloride 98 mmol/L (98-107); Estimated CRCL calculation 45 ml/min; Estimated Glomerular Filt Rate 54; Glucose 184 mg/dL (65-105); Partial Thromboplastin Time 31.3 SECONDS (22.3-36.8); Potassium 3.1 mmol/L (3.4-5.0); Sodium 134 mmol/L (137-145)
[2020-11-08 20:22] LABS: NT Pro B Type Natriuretic Pept 1220 PG/ML (5-100)
[2020-11-08] MEDS: ONDANSETRON INJ 4 MG/2 ML VIAL IV PUSH (20:47)
--- NOTE | 2020-11-08 21:06 | ED.SOB ---
HPI - SOB/Dyspnea General Chief Complaint: Shortness of Breath/Dyspnea Stated Complaint: sob, vomiting, diarrhea Time Seen by Provider: 11/08/20 19:32 History of Present Illness HPI Narrative: Patient is a 75-year-old female who presents ER in respiratory distress. Patient has severe emphysema with a baseline oxygen requirement of 8 L. Patient reports she is developed new cough and has been having fever at home. She is concerned that she has pneumonia. This is happened to her previously. She reports that she has had her full vaccination for Covid and her second dose was given on October 14. Patient has no chest pain but is quite short of breath. She has no orthopnea or other concerns at this time. Patient reports that she is a DNI/DNR but that she is aware that if she went to respiratory failure that she would and would only want to be comfortable at that time. Related Data Home Medications Medication Instructions Recorded Confirmed albuterol sulfate 90 mcg/actuation 2 inhalation INHALATION Q4-6H PRN 03/07/20 08/24/20 aerosol inhaler gm famotidine 20 mg tablet 20 mg PO BID tablet 03/07/20 08/24/20 tadalafil (pulm. hypertension) 20 40 mg PO DAILY tablet 03/07/20 08/24/20 mg tablet (pulmonary hypertension) furosemide 20 mg tablet 40 mg PO DAILY 03/08/20 08/24/20 Anoro Ellipta 1 inh INHALATION DAILY 06/08/20 08/24/20 Opsumit 10 mg PO DAILY 06/08/20 08/24/20 multivitamin with iron 1 tablet PO DAILY 06/08/20 08/24/20 docusate sodium 100 mg capsule 100 mg PO BID 06/29/20 08/24/20 guaifenesin 1,200 mg tablet, 1,200 mg PO Q12H 06/29/20 08/24/20 extended release 12 hr mecobalamin (vitamin B12) 1,000 3,000 mcg SUBLINGUAL DAILY tablet 06/29/20 08/24/20 mcg disintegrating tablet,sublingual melatonin 10 mg capsule 10 mg PO QPM cap 06/29/20 08/24/20 treprostinil INHALATION 07/15/20 08/24/20 umeclidinium-vilanterol 1 inh INHALATION DAILY 07/15/20 08/24/20 macitentan 10 mg tablet 10 mg PO DAILY 08/24/20 08/24/20 mycophenolate mofetil 500 mg tablet 1,000 mg PO Q12H 08/24/20 08/24/20 sulfamethoxazole 800 1 tablet PO 3XW tablet 08/24/20 08/24/20 mg-trimethoprim 160 mg tablet Allergies Allergy/AdvReac Type Severity Reaction Status Date / Time codeine AdvReac Unknown Nausea Verified 09/22/20 11:10 adhesive tape AdvReac Rash Verified 09/22/20 11:10 oxybutynin AdvReac Anxiety Verified 09/22/20 11:10 Review of Systems Review of Systems: All systems reviewed & are unremarkable except as noted in HPI and below Constitutional: Constitutional: Reports chills, Reports fever(s) and Denies weakness ENT: Denies nasal congestion and Denies sore throat Cardiovascular: Cardiovascular: Denies chest pain and Denies radiating jaw, neck or arm pain Respiratory: Respiratory: Denies chest congestion, Reports cough, Reports dyspnea and Denies wheezing Gastrointestinal: Gastrointestinal: Denies abdominal pain, Denies nausea and Denies vomiting [facility] Past Medical History Medical History Adrenal adenoma Status post resection. Anemia With history of blood transfusion. Brain aneurysm (~1991) Status post craniotomy and coiling. Chronic kidney disease, stage 3 Baseline creatinine ranges between 1.2 and 1.30. Chronic obstructive pulmonary disease Chronic respiratory failure with hypoxia On 6 L nasal cannula. Deep venous thrombosis Dyslipidemia GERD without esophagitis History of renal stone Hypothyroidism Incisional hernia Interstitial lung disease Osteoarthritis Pancreatitis (~05/2017) Pulmonary hypertension Surgical History Surgical History History of cardiac catheterization (~08/14/20) History of cataract extraction (~2014) History of cerebral aneurysm repair (~1992) History of cholecystectomy (~1978) History of knee replacement (~1990) Partial left knee replacement. History of removal of calculus of renal
--- NOTE | 2020-11-08 21:55 | PM.IMHP ---
H&P: HPI History of Present Illness Date/Time: 11/08/20 21:55 Chief Complaint: Acute respiratory distress Narrative: This is a 75-year-old female with known history of chronic respiratory failure on 8 L of oxygen via nasal cannula at all times at home, chronic COPD, pulmonary hypertension among many other comorbidities who presented to the hospital in respiratory distress tonight. The patient remarks that she has had increased shortness of breath, new productive cough, and fever at home which seem to have started yesterday. The patient recently finished her COVID vaccination on October 14. She denies any peripheral swelling, chest pain, significant wheezing, hemoptysis, sore throat, nasal congestion, body aches, abdominal pain, dysuria, hematuria, diarrhea, or focal neurological deficits. The patient has had nausea vomiting at home as well as in the emergency room tonight. The patient was treated in the ER with IV antibiotics for possible pneumonia, swabbed for COVID-19, and given Zofran for her nausea. She is currently on a nonrebreather for her shortness of breath and ER provider intended to initiate the patient on Bipap secondary to her respiratory distress. The patient has verbalized her wishes to be DNR/DNI code status. No other complaints at this time. Review of Systems Review of Systems: All systems reviewed & are unremarkable except as noted in HPI and below PMFSH Past Medical History Medical History Adrenal adenoma Status post resection. Anemia With history of blood transfusion. Brain aneurysm (~1991) Status post craniotomy and coiling. Chronic kidney disease, stage 3 Baseline creatinine ranges between 1.2 and 1.30. Chronic obstructive pulmonary disease Chronic respiratory failure with hypoxia On 6 L nasal cannula. Deep venous thrombosis Dyslipidemia GERD without esophagitis History of renal stone Hypothyroidism Incisional hernia Interstitial lung disease Osteoarthritis Pancreatitis (~05/2017) Pulmonary hypertension Surgical History Surgical History History of cardiac catheterization (~08/14/20) History of cataract extraction (~2014) History of cerebral aneurysm repair (~1992) History of cholecystectomy (~1978) History of knee replacement (~1990) Partial left knee replacement. History of removal of calculus of renal pelvis through percutaneous nephrostomy (~03/2019) History of right breast biopsy History of tonsillectomy (~1958) History of total adrenalectomy 2010 - Right adrenalectomy with pathology demonstrating a benign adrenal adenoma. History of tubal ligation (~1975) Family History Family History Mother Acute myocardial infarction Father Acute myocardial infarction Sibling Acute myocardial infarction Sibling Cerebrovascular accident Sibling History of blood clots Son Bladder cancer Social History Social History Social History: Surrogate decision maker: Jagdish Dia, spouse. Code status: Do not resuscitate. Smoking packs per day: 1 Smoking cigarettes per day: 20.0 Years smoked: 51 Smoking pack-years: 51.00 Smoking status: Former smoker Tobacco type: cigarettes and e-cigarettes/vaping Second hand tobacco smoke exposure: Yes Smoking end date: 08/11/13 Alcohol intake: never Substance use: never Substance use type: does not use Additional living arrangements comments: Resides with in [place]. They have 3 grown children. 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 Gender identity (if verbalized by the patient): Female Spiritual care concerns: No Meds Home Medications and Allergies Home Medications Medication Instructions Recorded Confirmed Type albuterol sulf
[2020-11-08] MEDS: POTASSIUM CHLORIDE 20 MEQ TABLET 40 MEQ PO (22:39)
--- NOTE | 2020-11-08 23:36 | ADMGEN ---
This patient, Alicia Dia, was admitted to IMU Room 201-on 11-08-20 at 2330. Patient/family oriented to hospital policies and general routines including ID bracelet, bed and alarms, visiting hours, pain management, procedures, bathroom and other care routines, personal items, smoking policy, room service/diet, and visiting hours. Information on how to activate the Rapid Response Team has been discussed. Patient/Family are encouraged to report perceived risks to care and to ask questions if they do not understand what they are told or what they should do.
[2020-11-09] VITALS (25 sets, daily range): BP systolic 102–117; BP diastolic 49–62; PULSE 82–99; RESP 20–26; TEMP 36.1–37.2; O2SAT 90–100; BMI 29.9
[2020-11-09] MEDS: ALBUTEROL SULFATE NEB 2.5 MG/0.5 ML INH 5 MG INHALATION ×4 (01:37→20:14)
[2020-11-09] MEDS: IPRATROPIUM BR 0.02% INH SOLN 0.5 MG/2.5 ML VIAL INHALATION ×4 (01:38→20:15)
--- NOTE | 2020-11-09 17:01 | PM.IMPN ---
Progress Note: A&P Assessment and Plan (1) Acute on chronic respiratory failure: Qualifiers: Respiratory failure complication: hypoxia Qualified Code(s): J96.21 - Acute and chronic respiratory failure with hypoxia Code(s): J96.20 - Acute and chronic respiratory failure, unspecified whether with hypoxia or hypercapnia Status: Acute Assessment and Plan: Admit to IMU, telemetry. We will initiate Bipap support if the patient is no longer nauseated. Continue oxygen supplementation. Continuous pulse oximetry. wean off of oxygen as tolerated back to home O2 levels. Monitor ABG. RT assess and treat. 11/09/20 17:01 patient is 75-year-old female with history of chronic respiratory failure on home oxygen 8 L per nasal cannula with history COPD pulmonary hypertension presented emergency department with a complaint of persistent shortness of breath her symptoms started yesterday patient continued home medication without much improved and presented to emergency department for further evaluation, though patient had COVID vaccination suspect patient may have a COVID being tested an isolated, suspect patient may have community-acquired pneumonia being treated doxycycline and Rocephin, currently patient states feeling much better compared to when she arrived, will consult insole and heel stiffener further recommendation, will continue home regimen and monitor the patient (2) Pneumonia: Qualifiers: Laterality: bilateral Lung location: lower lobe of lung Pneumonia type: due to unspecified organism Qualified Code(s): J18.9 - Pneumonia, unspecified organism Code(s): J18.9 - Pneumonia, unspecified organism Status: Acute Assessment and Plan: Continue IV antibiotics, sputum and blood cultures pending. (3) Person under investigation for COVID-19: Code(s): Z20.822 - Contact with and (suspected) exposure to COVID-19 Status: Acute Assessment and Plan: The patient has been swabbed for COVID-19. Continue droplet isolation. Continue supportive care. COVID-19 results pending. (4) Hypokalemia: Code(s): E87.6 - Hypokalemia Status: Acute Assessment and Plan: KCL PO now. Monitor serum potassium. (5) COPD (chronic obstructive pulmonary disease): Qualifiers: COPD type: unspecified COPD Qualified Code(s): J44.9 - Chronic obstructive pulmonary disease, unspecified Code(s): J44.9 - Chronic obstructive pulmonary disease, unspecified Status: Chronic Assessment and Plan: Continue bronchodilators. (6) Hypothyroidism (acquired): Code(s): E03.9 - Hypothyroidism, unspecified Status: Acute Assessment and Plan: Continue levothyroxine PO. (7) GERD without esophagitis: Code(s): K21.9 - Gastro-esophageal reflux disease without esophagitis Status: Acute Assessment and Plan: Continue pepcid. (8) Chronic kidney disease, stage 3: Qualifiers: Chronic kidney disease stage 3 subtype: unspecified whether 3a or 3b Qualified Code(s): N18.30 - Chronic kidney disease, stage 3 unspecified Code(s): N18.30 - Chronic kidney disease, stage 3 unspecified Status: Acute Assessment and Plan: Monitor renal function, Avoid nephrotoxic agents, renally dose medications. Subjective Date/time seen: 11/09/20 17:01 patient is 75-year-old female with history of chronic respiratory failure on home oxygen 8 L per nasal cannula with history COPD pulmonary hypertension presented emergency department with a complaint of persistent shortness of breath her symptoms started yesterday patient continued home medication without much improved and presented to emergency department for further evaluation, though patient had COVID vaccination suspect patient may have a COVID being tested an isolated, suspect patient may have community-acquired pneumonia being treated doxycycline and Rocephin, currently patient states feeling much bet
[2020-11-09] MEDS: ENOXAPARIN 40 MG/0.4 ML SYRINGE SUB-Q (17:20)
[2020-11-09] MEDS: FAMOTIDINE 20 MG TABLET PO (17:20)
[2020-11-09 17:33] LABS: SARS-CoV-2 RNA PCR Negative
[2020-11-09] MEDS: methylPREDNISolone SOD SUCC 40 MG VIAL IV PUSH ×2 (17:47→23:49)
--- NOTE | 2020-11-09 17:59 | PHAR ---
Drug Name: Mycophenolate Mofetil Ingredients: Mycophenolate Mofetil -- 500 MG Related Documents: DRUGDEX Evaluations - MYCOPHENOLIC ACID Color: Lavender Shape: Capsule-shape Imprint: 265 Form: Oral Tablet
[2020-11-09 18:00] LABS: D Dimer 1.72 ug/mL (<0.48)
[2020-11-09] MEDS: ATORVASTATIN 10 MG TABLET PO (21:32)
[2020-11-09] MEDS: THERAPEUTIC MULTIVITAMINS/MINERALS TAB (*BKC) 1 TABLET PO (21:32)
[2020-11-09] MEDS: guaiFENesin 12 HR 600 MG TABCR 1200 MG PO (21:32)
[2020-11-10] VITALS (27 sets, daily range): BP systolic 98–111; BP diastolic 48–88; PULSE 70–92; RESP 18–24; TEMP 35.6–36.4; O2SAT 76–99
--- NOTE | 2020-11-10 00:38 | PHAR ---
pharmacy verified: *use from home* Treprostinil 1.74 mg/2.9 mL (0.6 mg/mL) Solution Inhale 1 vial via nebulizer four times daily
[2020-11-10] MEDS: IPRATROPIUM BR 0.02% INH SOLN 0.5 MG/2.5 ML VIAL INHALATION ×2 (01:57→08:06)
[2020-11-10] MEDS: ALBUTEROL SULFATE NEB 2.5 MG/0.5 ML INH 5 MG INHALATION ×2 (01:58→08:06)
[2020-11-10] MEDS: LEVOTHYROXINE SODIUM 150 MCG TABLET PO (06:15)
[2020-11-10] MEDS: methylPREDNISolone SOD SUCC 40 MG VIAL IV PUSH (06:15)
[2020-11-10 09:00] LABS: Anion Gap 4 mmol/L (8-16); Blood Urea Nitrogen 19 mg/dL (7-17); Calcium 9.4 mg/dL (8.4-10.2); Carbon Dioxide 31 mmol/L (22-30); Chloride 100 mmol/L (98-107); Estimated CRCL calculation 50 ml/min; Estimated Glomerular Filt Rate > 60; Glucose 150 mg/dL (65-105); Sodium 135 mmol/L (137-145)
[2020-11-10] MEDS: FUROSEMIDE 40 MG TABLET PO (09:42)
[2020-11-10] MEDS: FAMOTIDINE 20 MG TABLET PO ×2 (09:42→17:24)
[2020-11-10] MEDS: POTASSIUM CHLORIDE 20 MEQ TABLET.ER PO (09:42)
[2020-11-10] MEDS: guaiFENesin 12 HR 600 MG TABCR 1200 MG PO ×2 (09:42→21:13)
[2020-11-10] MEDS: UMECLIDINIUM/VILANTEROL 62.5-25 MCG ELLIPTA 1 PUFF INHALATION (09:43)
--- NOTE | 2020-11-10 11:36 | PM.CNPUL ---
Assessment and Plan Assessment and plan (1) Chronic obstructive pulmonary disease: Qualifiers: COPD type: unspecified COPD Qualified Code(s): J44.9 - Chronic obstructive pulmonary disease, unspecified Code(s): J44.9 - Chronic obstructive pulmonary disease, unspecified Status: Acute Assessment and Plan: Patient carries a diagnosis of COPD and is maintained on Anoro Ellipta at home. Patient currently has worsening dyspnea on exertion mild increase in her dry cough and is being treated for COPD exacerbation with Solu-Medrol 40 Q 6 and bronchodilators. Today patient has no wheezes and says that she has 90% back to normal. I will discontinue IV steroids and place her on prednisone 50 q.day. I will continue her home Anoro Ellipta and continue p.r.n. albuterol and ipratropium nebulizers for rescue therapy. 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 Patient tells me she was recently started on mycophenolate 3 tablets in the morning and 2 at night. I will restart a lower dose in the hospital at 1000 q.h.s. while we are treating her for an active infection. 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 Patient currently has worsening hypoxic respiratory failure requiring high-flow nasal cannula at 40 L and 65% oxygen to maintain her sats at 91%. Given the severity of patient's lung condition I recommended that she be transferred to [facility] for further care. Patient told me that at this time she did not want to pursue a transfer because she is feeling so much better and she anticipates she will be able to be DC home tomorrow. to bring in medications so that she can restart her home meds. Discussed with Dr. 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 patient has no from wash you states that she has a PFO on her echocardiogram. Last echocardiogram in their record from 01/05/2020 showed a normal LV size and function, oood-ya-hlanpotl TR with severe pulmonary hypertension estimated at 63 which was overall not changed since her last echo on . Patient has COPD and types 1 and 3 pulmonary hypertension maintained on 8 L oxygen with rest, ambulation and sleep, OpSumit 10 mg q.day, Tadafil 40 mg a day, nebulized treprostinil 12 puffs q.i.d. and is followed at the Pulmonary hypertension Clinic at [facility]. Patient was recently discharged from [facility] on 08/16/2020 with a prednisone taper and then initiation of mycophenolate. Patient had been home feeling in her usual state until approximately 1 week ago when she started to develop shortness of breath. Shortness of breath was progressively worse over the last week associated with low-grade fever, minimal increase in her chronic cough, no phlegm production no hemoptysis and stable weight without any edema. Patient became worse on 11/08 and presented to the emerge
--- NOTE | 2020-11-10 13:54 | PHAR ---
The patient's home meds of Opsumit (macitentan) and Tadalafil 20mg have been verified.
--- NOTE | 2020-11-10 14:02 | PM.IMPN ---
Progress Note: A&P Assessment and Plan (1) Acute on chronic respiratory failure: Qualifiers: Respiratory failure complication: hypoxia Qualified Code(s): J96.21 - Acute and chronic respiratory failure with hypoxia Code(s): J96.20 - Acute and chronic respiratory failure, unspecified whether with hypoxia or hypercapnia Status: Acute Assessment and Plan: Admit to IMU, telemetry. We will initiate Bipap support if the patient is no longer nauseated. Continue oxygen supplementation. Continuous pulse oximetry. wean off of oxygen as tolerated back to home O2 levels. Monitor ABG. RT assess and treat. 11/10/20 14:02 11/09 patient is 75-year-old female with history of chronic respiratory failure on home oxygen 8 L per nasal cannula with history COPD pulmonary hypertension presented emergency department with a complaint of persistent shortness of breath her symptoms started yesterday patient continued home medication without much improved and presented to emergency department for further evaluation, though patient had COVID vaccination suspect patient may have a COVID being tested an isolated, suspect patient may have community-acquired pneumonia being treated doxycycline and Rocephin, currently patient states feeling much better compared to when she arrived, will consult correction officer supervisor further recommendation, will continue home regimen and monitor the patient 11/10 patient COVID test is negative, patient is seen by pulmonology and discussed patient has history of interstitial lung disease, severe pulmonary hypertension an autoimmune disease patient is seen by [facility] and pulmonary hypertension clinic and being treated with immunotherapy, patient is a DNR DNI, the correction officer supervisor recommended to transfer the patient to [facility] however patient does not wish to be transferred, currently patient is being treated for exacerbation of COPD patient was started on Solu-Medrol correction officer supervisor has taper to prednisone and plan is to discharge the patient home tomorrow, patient has elevated D-dimer will do CTA of the chest to further evaluate recommendation to follow. (2) Pneumonia: Qualifiers: Laterality: bilateral Lung location: lower lobe of lung Pneumonia type: due to unspecified organism Qualified Code(s): J18.9 - Pneumonia, unspecified organism Code(s): J18.9 - Pneumonia, unspecified organism Status: Acute Assessment and Plan: Continue IV antibiotics, sputum and blood cultures pending. (3) Person under investigation for COVID-19: Code(s): Z20.822 - Contact with and (suspected) exposure to COVID-19 Status: Acute Assessment and Plan: The patient has been swabbed for COVID-19. Continue droplet isolation. Continue supportive care. COVID-19 results pending. (4) Hypokalemia: Code(s): E87.6 - Hypokalemia Status: Acute Assessment and Plan: KCL PO now. Monitor serum potassium. (5) COPD (chronic obstructive pulmonary disease): Qualifiers: COPD type: unspecified COPD Qualified Code(s): J44.9 - Chronic obstructive pulmonary disease, unspecified Code(s): J44.9 - Chronic obstructive pulmonary disease, unspecified Status: Chronic Assessment and Plan: Continue bronchodilators. (6) Hypothyroidism (acquired): Code(s): E03.9 - Hypothyroidism, unspecified Status: Acute Assessment and Plan: Continue levothyroxine PO. (7) GERD without esophagitis: Code(s): K21.9 - Gastro-esophageal reflux disease without esophagitis Status: Acute Assessment and Plan: Continue pepcid. (8) Chronic kidney disease, stage 3: Qualifiers: Chronic kidney disease stage 3 subtype: unspecified whether 3a or 3b Qualified Code(s): N18.30 - Chronic kidney disease, stage 3 unspecified Code(s): N18.30 - Chronic kidney disease, stage 3 unspecified Status: Acute Assessmen
[2020-11-10] MEDS: ENOXAPARIN 40 MG/0.4 ML SYRINGE SUB-Q (14:13)
[2020-11-10] MEDS: predniSONE 10 MG TABLET 50 MG PO (14:14)
[2020-11-10] MEDS: ATORVASTATIN 10 MG TABLET PO (21:12)
[2020-11-10] MEDS: THERAPEUTIC MULTIVITAMINS/MINERALS TAB (*BKC) 1 TABLET PO (21:14)
[2020-11-11] VITALS (13 sets, daily range): BP systolic 93–106; BP diastolic 46–52; PULSE 63–93; RESP 18–20; TEMP 36–36.4; O2SAT 85–94
[2020-11-11] MEDS: hydrOXYzine HCL 25 MG TABLET 50 MG PO (00:04)
--- NOTE | 2020-11-11 00:40 | ECG_ITS ---
Measurements Intervals [place] Rate: 73 P: DE: 0 QRS: 88 QRSD: 86 T: 47 QT: 373 QTc: 411 Interpretive Statements ATRIAL FIBRILLATION BORDERLINE T WAVE ABNORMALITY- ANTERIOR LEADS BASELINE ARTIFACT- I, II, III, AVR, AVL, AVF, V3 ABNORMAL ECG Electronically Signed On 11-11-2020 15:06:49 CDT by Chaka Alonzo D.O.
[2020-11-11 05:11] LABS: Hematocrit 32.1 % (37.0-47.0); Hemoglobin 10.5 g/dL (12.0-15.0); Mean Corpuscular HGB Conc 32.7 g/dl (32-36); Mean Corpuscular Volume 91.7 fl (80-100); Platelet Count Result 223 k/mm3 (150-375); Red Cell Distribution Width 14.7 % (11.5-14.5); White Blood Count 15.7 K/mm3 (4.5-10.0)
[2020-11-11 05:33] LABS: Anion Gap 8 mmol/L (8-16); Blood Urea Nitrogen 26 mg/dL (7-17); Calcium 9.8 mg/dL (8.4-10.2); Carbon Dioxide 28 mmol/L (22-30); Chloride 99 mmol/L (98-107); Estimated CRCL calculation 50 ml/min; Estimated Glomerular Filt Rate > 60; Glucose 135 mg/dL (65-105); Potassium 4.3 mmol/L (3.4-5.0); Sodium 135 mmol/L (137-145)
--- NOTE | 2020-11-11 05:59 | ECG_ITS ---
Measurements Intervals [place] Rate: 65 P: MD: 0 QRS: 85 QRSD: 94 T: 40 QT: 397 QTc: 414 Interpretive Statements ATRIAL FIBRILLATION DELAYED PRECORDIAL R/S TRANSITION ABNORMAL ECG Electronically Signed On 11-11-2020 7:29:37 CDT by Chkaa Alonzo D.O.
[2020-11-11] MEDS: LEVOTHYROXINE SODIUM 150 MCG TABLET PO (06:03)
[2020-11-11] MEDS: UMECLIDINIUM/VILANTEROL 62.5-25 MCG ELLIPTA 1 PUFF INHALATION (08:19)
[2020-11-11] MEDS: FUROSEMIDE 40 MG TABLET PO (08:34)
[2020-11-11] MEDS: guaiFENesin 12 HR 600 MG TABCR 1200 MG PO (08:34)
[2020-11-11] MEDS: predniSONE 10 MG TABLET 50 MG PO (08:34)
[2020-11-11] MEDS: FAMOTIDINE 20 MG TABLET PO (08:34)
[2020-11-11] MEDS: POTASSIUM CHLORIDE 20 MEQ TABLET.ER PO (08:34)
[2020-11-11] MEDS: ENOXAPARIN 40 MG/0.4 ML SYRINGE SUB-Q (08:34)
--- NOTE | 2020-11-11 09:53 | PM.CNCAR ---
Assessment and Plan Additional Plan 75-year-old woman with: Atrial fibrillation undoubtedly related to her chronic lung disease and right-sided cardiac dilation which she is known to have and with respect to which she appears to be asymptomatic and unaware of this. She developed atrial fibrillation 2 days ago while in the hospital and other than being told of it is otherwise unaware of her arrhythmia. She obviously does not require any rate controlling agents. In my opinion systemic anticoagulation is clearly indicated and should be recommended. I am going to start Xarelto 20 mg daily. She does not require any further cardiac workup and at this point since this is triggered by her chronic lung disease and chronic right-sided cardiac dilation which is not a problem we can resolve I do not see any great benefit in considering to cardiovert this lady. I will follow her with you while she is in the hospital but her established physicians which include her PCP and her pulmonologists at [facility] are more than capable of prescribing her Xarelto. She does not need to follow up in my office simply for to receive prescriptions for an anticoagulant. Lexx Kevin MD [facility] History of Present Illness History of Present Illness Consult date/time: 11/11/20 09:53 Consult reason: atrial fibrillation Reason For Visit: Acute respiratory failure, pneumonia, Covid PUI Narrative: This is a 75-year-old woman that I am seeing at the request of the hospitalist because of atrial fibrillation. She has no previous history of significant cardiac pathology in the past and is followed by physicians primarily at [facility] because of extensive chronic lung disease. According to the record she has a history of significant chronic interstitial lung disease and also history of extensive COPD because of more than 50 years of smoking in the past. She was seen by pulmonology here at [place] she was recommended to be transferred to [facility] because of the severity of her lung disease but she declined that and is hoping to go home. She was hospitalized a few days ago and back on November 09 according to telemetry she reverted from sinus rhythm to atrial fibrillation. The patient has a history of relatively severe pulmonary hypertension secondary to her lung disease and has had significant evaluation of this at [facility] including right heart catheterizations on a couple of occasions. She is known to have significant RV and RA dilation by evaluation at that hospital. With respect to her atrial fibrillation her heart rate is controlled it is in the 80s she does not require any rate control according to what I can see. She is not and has not been anticoagulated. He does not have any history of significant had hemorrhagic problems anemia or obvious risk to be anticoagulated. She is hoping to be discharged today so she could spend the holiday with her family. She denies any sense of palpitations any sense of chest pain pressure or heaviness orthopnea or PND. Because of her chronic lung disease she has desired and expresses wishes to be do not resuscitate. Her PCP is in this community the remainder of her specialists are at [place]. Review of Systems Constitutional: Constitutional: Reports lethargy Eyes: Eyes: Reports no additional eye complaints ENT: Reports system reviewed and no additional complaints, except as documented Cardiovascular: Cardiovascular: Reports no additional cardiovascular complaints Respiratory: Respiratory: Reports dyspnea and Reports dyspnea on exertion Gastrointestinal: Gastrointestinal: Reports no additional gastrointestinal complaints Musculoskeletal: Musculoskeletal: Reports no additional musculoskeletal complaints Integumentary/Breasts: Skin/Breast: Reports system reviewed and no additional complaints, except as docu Neurologic: Reports system reviewed and no additional complaints, except as document
--- NOTE | 2020-11-11 10:44 | HOMEO2EVAL ---
Home Oxygen Evaluation RC: Home Oxygen (O2) Evaluation Start: 11/11/20 10:23 Freq: ONCE Status: Active Protocol: RPE Activity Type Activity Date Activity User E-Sign Co-Sign Detail Recorded Client Recorded Date Recorded By Document 11/11/20 10:30 [facility] _11/11/20 10:44 [facility] Document 11/11/20 10:31 [facility] _11/11/20 10:44 [facility] Document 11/11/20 10:39 [facility] 11/11/20 10:44 [facility] 11/11/20 11/11/20 11/11/20 10:30 10:31 10:39 Home O2 Evaluation Test Phase Resting Exercise Resting Oxygen Delivery High Flow Nasal High Flow Nasal High Flow Nasal Cannula Cannula Cannula Oxygen Flow Rate (L/min) 8 8 8 Pulse Oximetry (90-100 %) 94 88 L 93 Pulse Rate (60-100 beats/min) 79 75 77 Activity Tolerance Good Good Good Rating of Perceived Dyspnea (PD) +2 Mild, Some Difficulty, Noticeable to the Observer Rate of Perceived Exertion (PE) 9 Very light Ambulation Distance (feet) 15 Home Oxygen Evaluation Comments pt moved from to bedside commode and back to bed. Pt wears 8-10L O2 at home. will continue. Treatment Charges O2 Evaluation - Inpatient
--- NOTE | 2020-11-11 10:53 | PM.PNPUL ---
Progress Note: A&P Assessment and Plan (1) Chronic obstructive pulmonary disease: Qualifiers: COPD type: unspecified COPD Qualified Code(s): J44.9 - Chronic obstructive pulmonary disease, unspecified Code(s): J44.9 - Chronic obstructive pulmonary disease, unspecified Status: Acute Assessment and Plan: Patient carries a diagnosis of COPD and is maintained on Anoro Ellipta at home. Patient currently has worsening dyspnea on exertion mild increase in her dry cough and is being treated for COPD exacerbation with Solu-Medrol 40 Q 6 and bronchodilators. Today patient has no wheezes and says that she has 90% back to normal. I will discontinue IV steroids and place her on prednisone 50 q.day. I will continue her home Anoro Ellipta and continue p.r.n. albuterol and ipratropium nebulizers for rescue therapy. Ready for DC today: Doxycycline for total 7 days. Prednisone 50 mg for total 5 days of steroids Anoro ellipta 1 puff Q day Rescue albuterol inhaler 2 puffs Q 4 PRN NC oxygen with 8 L 24/7. 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 Patient tells me she was recently started on mycophenolate 3 tablets in the morning and 2 at night. I will restart a lower dose in the hospital at 1000 q.h.s. while we are treating her for an active infection. / Some progression on CT scan from 06/08/20. Restart home regimen of mycophenylate. Follow up at [facility]. 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 Patient currently has worsening hypoxic respiratory failure requiring high-flow nasal cannula at 40 L and 65% oxygen to maintain her sats at 91%. Given the severity of patient's lung condition I recommended that she be transferred to [facility] for further care. Patient told me that at this time she did not want to pursue a transfer because she is feeling so much better and she anticipates she will be able to be DC home tomorrow. to bring in medications so that she can restart her home meds. 11/10 Continue her home regimen of tadalafil 40 mg PO Q day, inhaled treprostinil 12 puffs 4 times, and mecitentan 10 mg Q day. Follow up at [facility]. Discussed with Dr. 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 patient has no from wash you states that she has a PFO on her echocardiogram. Last echocardiogram in their record from 01/05/2020 showed a normal LV size and function, [id number] TR with severe pulmonary hypertension estimated at 63 which was overall not changed since her last echo on . Patient has COPD and types 1 and 3 pulmonary hypertension maintained on 8 L oxygen with rest, ambulation and sleep, OpSumit 10 mg q.day, Tadafil 40 mg a day, nebulized treprostinil 12 puffs q.i.d. and is followed at the Pulmonary hypertension Clinic at [facility]. Patient was recently discharged from [facility] on 08/16/2020 with a prednisone taper and then initiation of mycophenolate. Patient had been home feeling in her usua
--- NOTE | 2020-11-11 11:44 | PM.DS ---
DS: Admitting Diagnosis Admitting Diagnosis Admitting Diagnosis: Chief Complaint: Acute respiratory distress DS: Discharge Diagnosis Discharge Diagnosis (1) Acute on chronic respiratory failure: Qualifiers: Respiratory failure complication: hypoxia Qualified Code(s): J96.21 - Acute and chronic respiratory failure with hypoxia Code(s): J96.20 - Acute and chronic respiratory failure, unspecified whether with hypoxia or hypercapnia Status: Acute Assessment and Plan: Admit to IMU, telemetry. We will initiate Bipap support if the patient is no longer nauseated. Continue oxygen supplementation. Continuous pulse oximetry. wean off of oxygen as tolerated back to home O2 levels. Monitor ABG. RT assess and treat. (2) Pneumonia: Qualifiers: Laterality: bilateral Lung location: lower lobe of lung Pneumonia type: due to unspecified organism Qualified Code(s): J18.9 - Pneumonia, unspecified organism Code(s): J18.9 - Pneumonia, unspecified organism Status: Acute Assessment and Plan: Continue IV antibiotics, sputum and blood cultures pending. (3) Person under investigation for COVID-19: Code(s): Z20.822 - Contact with and (suspected) exposure to COVID-19 Status: Acute Assessment and Plan: The patient has been swabbed for COVID-19. Continue droplet isolation. Continue supportive care. COVID-19 results pending. (4) Hypokalemia: Code(s): E87.6 - Hypokalemia Status: Acute Assessment and Plan: KCL PO now. Monitor serum potassium. (5) COPD (chronic obstructive pulmonary disease): Qualifiers: COPD type: unspecified COPD Qualified Code(s): J44.9 - Chronic obstructive pulmonary disease, unspecified Code(s): J44.9 - Chronic obstructive pulmonary disease, unspecified Status: Chronic Assessment and Plan: Continue bronchodilators. (6) Hypothyroidism (acquired): Code(s): E03.9 - Hypothyroidism, unspecified Status: Acute Assessment and Plan: Continue levothyroxine PO. (7) GERD without esophagitis: Code(s): K21.9 - Gastro-esophageal reflux disease without esophagitis Status: Acute Assessment and Plan: Continue pepcid. (8) Chronic kidney disease, stage 3: Qualifiers: Chronic kidney disease stage 3 subtype: unspecified whether 3a or 3b Qualified Code(s): N18.30 - Chronic kidney disease, stage 3 unspecified Code(s): N18.30 - Chronic kidney disease, stage 3 unspecified Status: Acute Assessment and Plan: Monitor renal function, Avoid nephrotoxic agents, renally dose medications. DS: Summary Hospital Course Reason for hospitalization: Chief Complaint: Acute respiratory distress Narrative: This is a 75-year-old female with known history of chronic respiratory failure on 8 L of oxygen via nasal cannula at all times at home, chronic COPD, pulmonary hypertension among many other comorbidities who presented to the hospital in respiratory distress tonight. The patient remarks that she has had increased shortness of breath, new productive cough, and fever at home which seem to have started yesterday. The patient recently finished her COVID vaccination on October 14. She denies any peripheral swelling, chest pain, significant wheezing, hemoptysis, sore throat, nasal congestion, body aches, abdominal pain, dysuria, hematuria, diarrhea, or focal neurological deficits. The patient has had nausea vomiting at home as well as in the emergency room tonight. The patient was treated in the ER with IV antibiotics for possible pneumonia, swabbed for COVID-19, and given Zofran for her nausea. She is currently on a nonrebreather for her shortness of breath and ER provider intended to initiate the patient on Bipap secondary to her respiratory distress. The patient has verbalized her wishes to be DNR/DNI code status. No other complaints at this time. Hospital Course: jono
[2020-11-11] MEDS: RIVAROXABAN 20 MG TABLET PO (13:14)
== END 2020-11-11 13:45 | disposition home or self-care (01) | DRG 193 ==
LOC: ANHED 21:08 → ANHIMU 11-10 15:49
PROVIDERS: Admitting Provider Family Medicine; Emergency Provider Emergency Medicine; PCP Family Medicine; Visit Provider Family Medicine
DX: J18.9 Pneumonia, unspecified organism (principal); J96.00 Acute respiratory failure, unspecified whether with hypoxia or hypercapnia; J96.21 Acute and chronic respiratory failure with hypoxia; Z20.822 Contact with and (suspected) exposure to COVID-19; E78.5 Hyperlipidemia, unspecified; E03.9 Hypothyroidism, unspecified; N18.30 Chronic kidney disease, stage 3 unspecified; I27.20 Pulmonary hypertension, unspecified; Z66 Do not resuscitate; J44.9 Chronic obstructive pulmonary disease, unspecified
CPT/HCPCS: 36415; 36600; 71045; 71275; 80048; 82805; 83880; 85025; 85027; 85380; 85610; 85730; 87040; 93005; 94002; 94618; 94640; 96374; 99291; A9270; C9803; J0456; J0696; J1650; J2405; J2920; J7512; Q9967; U0003; U0005

== ENCOUNTER 2021-02-26 18:45 | Inpatient (IN) | payer MEDICARE, OTHER, SELFPAY ==
[2021-02-26] VITALS (44 sets, daily range): BP systolic 79–116; BP diastolic 53–96; PULSE 82–114; RESP 13–31; TEMP 37; O2SAT 68–96
--- NOTE | ~2021-02-26 | CT_ITS ---
EXAMINATION: CT abdomen pelvis wo con EXAM DATE: 02/26/2021 23:17 INDICATION: Back pain hx of stones. TECHNIQUE: Spiral CT of the abdomen and pelvis was performed without contrast. Axial, coronal and s agittal images of the abdomen and pelvis were reviewed. The dose-length product (DLP) for this exami nation was 449.58 mGy-cm. The exposure was tailored according to patient size (auto mA exposure cont rol), and iterative reconstruction (ASIR) was used as additional dose reduction technique. Comparison is made to prior examination from 03/09/2017, 09/22/2020. FINDINGS: The liver, spleen, adrenal glands and pancreas are unremarkable. There are cholecystectomy clips. There is no nephrolithiasis or hydronephrosis. There is mild to moderate bilateral renal atr ophy. The uterus is unremarkable. The bladder is unremarkable. There is no retroperitoneal or pel venita lymphadenopathy. There is moderate scattered arteriosclerotic disease. There are no findings to suggest appendicitis. The stomach and small bowel are unremarkable. There i s mild sigmoid colonic diverticulosis. There is no adjacent inflammatory change to suggest diverticu litis. No free intraperitoneal gas. The heart is normal in size. There are no pericardial or pleu ral effusions. There is basilar intralobular septal thickening with interspersed groundglass opacities consistent wi th nonspecific interstitial pneumonitis interstitial lung disease. There are scattered basilar pulmon dano nodules unchanged, probably postinfectious but consider one-year follow-up chest CT. There is mod erate emphysema. There are no osteoblastic or osteolytic lesions identified. IMPRESSION: 1. Emphysema, interstitial lung disease and basilar nodules unchanged. Consider one-year follow-up c hest 2. Mild to moderate bilateral renal atrophy. 3. Mild sigmoid diverticulosis. Reviewed, dictated and finalized at location A. IMPRESSION: 1. Emphysema, interstitial lung disease and basilar nodules unchanged. Conside r one-year follow-up chest 2. Mild to moderate bilateral renal atrophy. 3. Mild sigmoid diverticulosis.
--- NOTE | ~2021-02-26 | XR_ITS ---
EXAMINATION: XR chest 1V portable EXAM DATE: 02/26/2021 19:48 INDICATION: Hypoxia, COPD. Low back pain. TECHNIQUE: Portable AP frontal chest x-ray was obtained. Comparison is made to prior examination from 11/08/2020. FINDINGS: Cardiomegaly and pulmonary vascular congestion. Again there is prominent basilar intralobul ar septal thickening, could be chronic interstitial lung disease given similar appearance on prior ex aminations. Mild pulmonary edema not excludable. No confluent consolidation, pneumothorax or pleural effusion suspected. There is no pneumothorax suspected. There is aortic arteriosclerosis. There i s no significant interval change. IMPRESSION: 1. Abnormal reticulation unchanged. Probably chronic interstitial lung disease but pulmonary edema n ot excludable. 2. Cardiomegaly and pulmonary vascular congestion. Reviewed, dictated and finalized at location A. IMPRESSION: 1. Abnormal reticulation unchanged. Probably chronic interstitial lung disease but pulmonary edema not excludable. 2. Cardiomegaly and pulmonary vascular congestion.
--- NOTE | 2021-02-26 18:56 | ECG_ITS ---
Measurements Intervals [place] Rate: 96 P: 62 MD: 249 QRS: 127 QRSD: 86 T: 21 QT: 325 QTc: 411 Interpretive Statements SINUS RHYTHM WITH FIRST DEGREE AV BLOCK RIGHT AXIS DEVIATION DELAYED PRECORDIAL R/S TRANSITION BORDERLINE ST-T WAVE ABNORMALITY- INFERIOR LEADS BASELINE ARTIFACT- I, II, III, AVR, AVL, AVF, V4-V5 ABNORMAL ECG Electronically Signed On 02-27-2021 14:54:21 CDT by Chaka Alonzo D.O.
--- NOTE | 2021-02-26 18:56 | PC.NURSE ---
Pt states I don't not want to be intubated when asked about advanced directive
[2021-02-26 19:31] LABS: Basophils Percent Auto 0.3 % (0.2-1.2); Eosinophils Absolute Auto 0.1 K/mm3 (0-0.3); Eosinophils Percent Auto 1.4 % (0-4.4); Hematocrit 33.8 % (37.0-47.0); Hemoglobin 10.6 g/dL (12.0-15.0); Immature Granulocyte Absolute 0.03 K/mm3 (0.00-0.031); Immature Granulocyte Percent A 0.5 % (0-0.5); Lymphocytes Absolute Auto 0.67 K/mm3 (0.9-3.2); Lymphocytes Percent Auto 10.5 % (18.3-44.2); Mean Corpuscular HGB Conc 31.4 g/dl (32-36); Mean Corpuscular Hemoglobin 29.9 pg (26-34); Mean Corpuscular Volume 95.2 fl (80-100); Mean Platelet Volume 10.9 fl (7.4-10.4); Monocytes Absolute Auto 0.6 K/mm3 (0.1-0.6); Neutrophils Percent Auto 78.3 % (45.5-73.1); Platelet Count Result 171 k/mm3 (150-375); Red Blood Count 3.55 M/mm3 (4.2-5.4); Red Cell Distribution Width 14.9 % (11.5-14.5); White Blood Count 6.4 K/mm3 (4.5-10.0)
[2021-02-26] MEDS: MORPHINE SULFATE (*CRX) 4 MG/ML INJ IV PUSH (19:31)
[2021-02-26] MEDS: ONDANSETRON INJ 4 MG/2 ML VIAL IV PUSH (19:32)
[2021-02-26 19:41] LABS: Chloride 105 mmol/L (98-107)
[2021-02-26 19:50] LABS: Anion Gap 9 mmol/L (8-16); Blood Urea Nitrogen 19 mg/dL (7-17); Calcium 9.2 mg/dL (8.4-10.2); Carbon Dioxide 23 mmol/L (22-30); Estimated CRCL calculation 45 ml/min; Estimated Glomerular Filt Rate 54; Glucose 110 mg/dL (65-110); Potassium 3.6 mmol/L (3.4-5.0); Sodium 137 mmol/L (137-145)
[2021-02-26] MEDS: SODIUM CHLORIDE 0.9% IV 1,000 ML 500 ML IV CONT (19:58)
--- NOTE | 2021-02-26 20:00 | PC.NURSE ---
Pt o2 stats not remaining above 75. Dr and Charge updated. RT called. Pt 02 increased via NS. Will cont to mx.
--- NOTE | 2021-02-26 20:00 | PC.NURSE ---
Pt refused ABG. Charge and Dr. Matias.
[2021-02-26] MEDS: ALBUTEROL SULFATE NEB 2.5 MG/0.5 ML INH 5 MG INHALATION (20:31)
[2021-02-26] MEDS: ALBUTEROL SULFATE NEB 2.5 MG/0.5 ML INH 5 MG (20:32)
[2021-02-26] MEDS: IPRATROPIUM BR 0.02% INH SOLN 0.5 MG/2.5 ML VIAL (20:32)
[2021-02-26] MEDS: IPRATROPIUM BR 0.02% INH SOLN 0.5 MG/2.5 ML VIAL INHALATION (20:32)
--- NOTE | 2021-02-26 22:00 | PC.NURSE ---
Pt o2 at [address] baugh. Called RT> RT put pt on Bipap. o2 in the s. Will cont to mx.
[2021-02-26 22:25] LABS: Alanine Aminotransferase 11 U/L (4-35); Albumin Level 3.7 g/dL (3.5-5.1); Alkaline Phosphatase 97 U/L (38-126); Aspartate Amino Transferase 28 U/L (14-36); Bilirubin,Total 0.6 mg/dL (0.2-1.3); Lipase 55 U/L (23-300)
--- NOTE | 2021-02-26 22:33 | PC.NURSE ---
Pt wants the bi-pap to be removed. Education given on bi pap and the need for the bi pap at this time. pt refuses. Updated charge nurse and Dr choi. Dr choi told me to call RT, I updated RT on pts wishes, RT states to put her on high flow 15 L . Charge and aware of situation.
[2021-02-26 22:37] LABS: NT Pro B Type Natriuretic Pept 4250 pg/mL (5-100); Troponin I < 0.012 ng/mL (0.000-0.034)
[2021-02-27] VITALS (17 sets, daily range): BP systolic 87–102; BP diastolic 41–73; PULSE 87–103; RESP 18–24; TEMP 36.3–36.8; O2SAT 65–96
--- NOTE | 2021-02-27 00:06 | ED.GENADULT ---
HPI - General Adult General Chief complaint: Back Pain/Injury Stated complaint: back pain with low pulse ox Time Seen by Provider: 02/26/21 19:06 History of Present Illness HPI narrative: Patient 75-year-old female presents the emergency department with chief complaint of low back pain. Patient reports that this evening she started having pain in her low back denies radiation down her legs denies bowel or bladder dysfunction denies saddle anesthesia. Patient states also she has history of COPD and normally wears 8 L of high flow oxygen at home. Patient states that her blood oxygen levels fluctuate between 84 and 88% at home on these levels of oxygen. Patient denies shortness of breath denies fever reports that she is currently on her baseline as far as oxygen goes home. Related Data Home Medications Medication Instructions Recorded Confirmed albuterol sulfate 90 mcg/actuation 2 inhalation INHALATION Q4-6H PRN 03/07/20 11/09/20 aerosol inhaler gm famotidine 20 mg tablet 20 mg PO BID tablet 03/07/20 11/09/20 furosemide 20 mg tablet 40 mg PO DAILY 03/08/20 11/09/20 Anoro Ellipta 1 inh INHALATION DAILY 06/08/20 11/09/20 Opsumit 10 mg PO DAILY 06/08/20 11/09/20 multivitamin with iron 1 tablet PO HS 06/08/20 11/09/20 guaifenesin 1,200 mg tablet, 1,200 mg PO Q12H 06/29/20 11/09/20 extended release 12 hr treprostinil 12 inh INHALATION QID 07/15/20 11/09/20 umeclidinium-vilanterol 1 inh INHALATION DAILY 07/15/20 11/09/20 mycophenolate mofetil 500 mg tablet 1,000 mg PO Q12H 08/24/20 11/09/20 potassium chloride 20 meq PO DAILY 11/09/20 11/09/20 tadalafil (pulm. hypertension) 40 mg PO DAILY 11/11/20 11/11/20 Allergies Allergy/AdvReac Type Severity Reaction Status Date / Time codeine AdvReac Unknown Nausea Verified 09/22/20 11:10 adhesive tape AdvReac Rash Verified 09/22/20 11:10 oxybutynin AdvReac Anxiety Verified 09/22/20 11:10 Review of Systems Review of Systems: Narrative: A 10 system review of systems was completed on the patient and is negative except for what is stated in the HPI. Nursing and ancillary documentation was reviewed. [facility] Past Medical History Medical History Adrenal adenoma Status post resection. Anemia With history of blood transfusion. Brain aneurysm (~1991) Status post craniotomy and coiling. Chronic kidney disease, stage 3 Baseline creatinine ranges between 1.2 and 1.30. Chronic obstructive pulmonary disease Chronic respiratory failure with hypoxia On 6 L nasal cannula. Deep venous thrombosis Dyslipidemia GERD without esophagitis History of renal stone Hypothyroidism Incisional hernia Interstitial lung disease Osteoarthritis Pancreatitis (~05/2017) Pulmonary hypertension Surgical History Surgical History History of cardiac catheterization (~08/14/20) History of cataract extraction (~2014) History of cerebral aneurysm repair (~1992) History of cholecystectomy (~1978) History of knee replacement (~1990) Partial left knee replacement. History of removal of calculus of renal pelvis through percutaneous nephrostomy (~03/2019) History of right breast biopsy History of tonsillectomy (~1957) History of total adrenalectomy 2009 - Right adrenalectomy with pathology demonstrating a benign adrenal adenoma. History of tubal ligation (~1975) Family History Family History Mother Acute myocardial infarction Father Acute myocardial infarction Sibling Acute myocardial infarction Sibling Cerebrovascular accident Sibling History of blood clots Son Bladder cancer Social History Social History Social History: Surrogate decision maker: Jagdish Dia, spouse. Code status: Do not resuscitate. Smoking packs per day: 1 Smoking cigarettes per
[2021-02-27 00:53] LABS: Add Urine Microscopic? YES; Appearance Urine Cloudy (Clear); Bacteria Urine 4+ /hpf; Bilirubin Urine Negative (Negative); Blood Urine 1+ (Negative); Color Urine Amber (Yellow); Glucose Urine UA Negative (Negative); Ketones Urine Negative (Negative); Leukocyte Esterase Ur 2+ LEU/UL (Negative); Mucus Urine Heavy /lpf; Nitrate Urine Negative (Negative); Protein Urine 2+ mg/dL (Negative); Specific Grav Ur 1.026 (1.001-1.035); Squamous Epithelial Cell Urine Moderate /hpf (Few); Urobilinogen Urine Negative mg/dL (<2.0); WBC Clumps Urine Present /HPF; WBC Urine >75 /hpf
[2021-02-27] MEDS: HYDROcodone/acetaminophen (*CRX) 5-325 MG TABLET 1 TAB PO (00:57)
[2021-02-27] MEDS: methylPREDNISolone SOD SUCC 125 MG VIAL IV PUSH (00:57)
[2021-02-27] MEDS: FUROSEMIDE INJ 40 MG/4 ML VIAL IV PUSH ×3 (02:26→17:22)
--- NOTE | 2021-02-27 03:20 | PM.IMHP ---
H&P: HPI History of Present Illness Date/Time: 02/27/21 03:20 Chief Complaint: BACK PAIN Narrative: THIS IS A 75-YEAR-OLD FEMALE WITH PAST MEDICAL HISTORY SIGNIFICANT FOR COPD / EMPHYSEMA ON SUPPLEMENTAL OXYGEN AT HOME, PULMONARY HYPERTENSION, CONGESTIVE HEART FAILURE, HYPOTHYROIDISM, FORMER SMOKER, GERD, DYSLIPIDEMIA. PATIENT PRESENTED TODAY TO THE EMERGENCY ROOM DUE TO BACK PAIN PATIENT DENIES ANY FEVERS CHILLS RIGORS ANY PAIN OR BURNING WITH URINATION NO NAUSEA NO VOMITING NO DIARRHEA NO ABDOMINAL PAIN PRELIMINARY WORKUP WAS SIGNIFICANT FOR NUMEROUS WBC'S IN THE URINE. PATIENT ALSO WAS SATURATING IN THE LOW 80S AND THIS IS NORMAL FOR HER. A CHEST X-RAY SHOWED INFILTRATES AND A BRAIN NATRIURETIC PEPTIDE WAS ELEVATED ABOVE 4,000. Review of Systems Review of Systems: Narrative: BACK PAIN Constitutional: Constitutional: Denies chills, Denies fatigue, Denies fever(s) and Denies malaise Eyes: Eyes: Denies change in vision ENT: Denies dysphagia, Denies nasal congestion, Denies nasal discharge, Denies nasal obstruction and Denies odynophagia Cardiovascular: Cardiovascular: Denies edema, Denies irregular heart rhythm, Denies radiating jaw, neck or arm pain, Denies palpitations and Denies dyspnea on exertion Respiratory: Respiratory: Denies change in phlegm color and Reports cough Comments: PRODUCTIVE OF GREEN SPUTUM Gastrointestinal: Gastrointestinal: Denies diarrhea, Denies nausea and Denies vomiting Genitourinary: Genitourinary: Reports no additional female genitourinary complaints Musculoskeletal: Musculoskeletal: Reports back pain Integumentary/Breasts: Skin/Breast: Reports system reviewed and no additional complaints, except as docu Neurologic: Reports system reviewed and no additional complaints, except as documented Psychiatric: Psychiatric: Reports no additional psychiatric complaints Endocrine: Endocrine: Reports no additional endocrine complaints Hematologic/Lymphatic: Hematologic/Lymphatic: Reports no additional hematologic/lymphatic complaints Allergic/Immunologic: Allergic/Immunologic: Reports no additional allergic/immunologic complaints [facility] Past Medical History Medical History Adrenal adenoma Status post resection. Anemia With history of blood transfusion. Brain aneurysm (~1991) Status post craniotomy and coiling. Chronic kidney disease, stage 3 Baseline creatinine ranges between 1.2 and 1.30. Chronic obstructive pulmonary disease Chronic respiratory failure with hypoxia On 6 L nasal cannula. Deep venous thrombosis Dyslipidemia GERD without esophagitis History of renal stone Hypothyroidism Incisional hernia Interstitial lung disease Osteoarthritis Pancreatitis (~05/2017) Pulmonary hypertension Surgical History Surgical History History of cardiac catheterization (~08/14/20) History of cataract extraction (~2014) History of cerebral aneurysm repair (~1992) History of cholecystectomy (~1978) History of knee replacement (~1990) Partial left knee replacement. History of removal of calculus of renal pelvis through percutaneous nephrostomy (~03/2019) History of right breast biopsy History of tonsillectomy (~1957) History of total adrenalectomy 2009 - Right adrenalectomy with pathology demonstrating a benign adrenal adenoma. History of tubal ligation (~1975) Family History Family History Mother Acute myocardial infarction Father Acute myocardial infarction Sibling Acute myocardial infarction Sibling Cerebrovascular accident Sibling History of blood clots Son Bladder cancer Social History Social History Social History: Surrogate decision maker: Jagdish Dia, spouse. Code status: Do not resuscitate. Smoking packs per day: 1 Smoking
--- NOTE | 2021-02-27 05:28 | PHAR ---
PHARMACY VERIFIED HOME MEDS: MACITENTAN (OPSUMIT) - TAKE ONE TABLET BY MOUTH DAILY TREPROSTINIL (TYVASO) 1.74 mg/2.9 mL NEBULIZING SOLUTION TADALAFIL 20 MG TABLET - TAKE 2 TABLETS BY MOUTH DAILY
[2021-02-27] MEDS: ALBUTEROL SULFATE NEB 2.5 MG/0.5 ML INH INHALATION ×2 (08:25→11:51)
[2021-02-27] MEDS: IPRATROPIUM BR 0.02% INH SOLN 0.5 MG/2.5 ML VIAL INHALATION (08:25)
--- NOTE | 2021-02-27 08:43 | ADMGEN ---
Addendum entered by Luis Fernando Choudhury, CHAPIN 02/27/21 08:53: ... and laying very still she was able to sustain an SpO2 of 94% Dr. Carlton was called and informed of her condition, she agreed with the current treatments with no further orders. Her admission was finished at the end of the shift. She was pleasant and a good historian. Her medications were discussed, she had 3 medications that she believed were unlikely to be in the hospital pharmacy. She gave a med list and was able to discuss the most recent changes to her medication regimen. The unusual meds were sent to pharmacy for verification. She transferred w/o difficulty to a bedside commode. Original Note: This patient, Alicia Crowley, was admitted to 3 Med Surg Room 322-02. Patient/family oriented to hospital policies and general routines including ID bracelet, bed and alarms, visiting hours, pain management, procedures, bathroom and other care routines, personal items, smoking policy, room service/diet, and visiting hours. Information on how to activate the Rapid Response Team has been discussed. Patient/Family are encouraged to report perceived risks to care and to ask questions if they do not understand what they are told or what they should do. Hospital policy, call light use, medications, labs, other forms of health monitoring, and the need to call for help before transferring or ambulating was all discussed with patient at admission. She arrived from the ER with blue/purple lips and gums, dusky skin, and an SpO2 at 54%. ER did not inform me of her unstable status and had very limited knowledge of her condition. She was admitted as a low back pain with low pulse ox. Respiratory therapy came right away to place her on 15 lpm high flow NC. Her DNR status was noted before admission but the respiratory therapist informed me of her other requests to not use BiPAP or mechanical ventilation. She was placed on a nonrebreather in addition to her nasal canula, also at 15 lpm. After about 30 minutes of an SpO2 of 75-88% and laying very still
--- NOTE | 2021-02-27 11:47 | PHAR ---
THE PATIENTS HOME MEDICATIONS HAVE BEEN IDENTIFIED BY PHARMACY: TYVASO (TREPROSTINIL 1.74MG/2.9ML INHALATION SOLUTION OPSUMIT (MACITENTAN) 10MG TABLETS TADALAFIL 20MG TABLETS
[2021-02-27] MEDS: UMECLIDINIUM/VILANTEROL 62.5-25 MCG ELLIPTA 1 PUFF INHALATION (11:50)
[2021-02-27] MEDS: LEVOTHYROXINE SODIUM 150 MCG TABLET PO (12:04)
[2021-02-27] MEDS: ATORVASTATIN 10 MG TABLET PO (12:04)
[2021-02-27] MEDS: FAMOTIDINE 20 MG TABLET PO ×2 (12:04→17:22)
[2021-02-27] MEDS: guaiFENesin 12 HR 600 MG TABCR 1200 MG PO ×2 (12:04→21:18)
--- NOTE | 2021-02-27 13:42 | PM.IMPN ---
Progress Note: A&P Assessment and Plan (1) Lumbar compression fracture: Qualifiers: Encounter type: initial encounter Lumbar vertebra fracture level: L4 Qualified Code(s): S32.040A - Wedge compression fracture of fourth lumbar vertebra, initial encounter for closed fracture Code(s): S32.000A - Wedge compression fracture of unspecified lumbar vertebra, initial encounter for closed fracture Status: Acute Assessment and Plan: Patient presents with new onset lower back pain around 10am yesterday. No falls or trauma. She reports pain began after she stood up from a seated position off a stool in the kitchen. Denies saddle anesthesia or other numbness/tingling. She endorses bowel and bladder incontinence which she attributes to her home medications and are chronic for her. Discussed with radiologist, revisited abd/pel CT due to back pain seeming musculoskeletal in nature. He notes multiple chronic compression fractures of the lumbar spine but with an acute-appearing L4 compression fracture; chronic severe central canal stenosis. This is likely the cause of her pain. No spinal specialists at our facility but I appreciate orthopedic consultation for recommendation if she may benefit from TLSO brace and therapy recommendations. Continue conservative management with analgesics as needed. Would hold off on further PT/OT until ortho evaluation. (2) Acute UTI: Code(s): N39.0 - Urinary tract infection, site not specified Status: Acute Assessment and Plan: UA grossly abnormal. Continue IV ceftriaxone while awaiting urine culture and tailor abx as appropriate. (3) Chronic respiratory failure with hypoxia: Code(s): J96.11 - Chronic respiratory failure with hypoxia Status: Acute Assessment and Plan: Patient has autoimmune-associated ILD, nonspecific interstitial pneumonitis and pulmonary arterial hypertension, COPD. At home she requires 8L high flow NC at rest, 15L high flow NC with activity. She describes her saturations are normally 82-87% at rest on the 8L and can often drop to low 70s- high 60s with activity. She follows with pulmonology at [place] - Dr Ahsan Parsons and Dr Molly Betancourt. Although her history is complex, her respiratory status appears at her baseline. Discussed with Dr Smith. Recommended stopping her CellCept due to acute infection with UTI; continue her home medications as below. He offered her transfer to [place], she declines. Recommends if her respiratory status were to worsen beyond her baseline that she would be best suited in transfer to [place]. Continue home regimen with: Albuterol PRN, Anoro Ellipta, tadalafil, Opsumit, Tyvaso inhaler at bedside. CellCept held as above. (4) COPD (chronic obstructive pulmonary disease): Qualifiers: COPD type: unspecified COPD Qualified Code(s): J44.9 - Chronic obstructive pulmonary disease, unspecified Code(s): J44.9 - Chronic obstructive pulmonary disease, unspecified Status: Chronic Assessment and Plan: See above. (5) Pulmonary hypertension: Code(s): I27.20 - Pulmonary hypertension, unspecified Status: Chronic Assessment and Plan: See above. (6) GERD without esophagitis: Code(s): K21.9 - Gastro-esophageal reflux disease without esophagitis Status: Chronic Assessment and Plan: No acute issues. Continue pepcid. Subjective Date/time seen: 02/27/21 1245 Interval history: Ms. Crowley is a 75yo F with significant chronic hypoxic respiratory failure due to autoimmune-associated ILD, pulmonary hypertension who is seen in follow up for UTI and back pain. She reports pain across her lower back on both si
[2021-02-27] MEDS: HYDROcodone/acetaminophen (*CRX) 7.5-325 MG TABLET 1 TAB PO ×2 (14:50→22:13)
--- NOTE | 2021-02-27 16:50 | PM.CNPUL ---
Assessment and Plan Assessment and plan (1) Chronic respiratory failure with hypoxia: Code(s): J96.11 - Chronic respiratory failure with hypoxia Status: Acute Assessment and Plan: patient with a history of autoimmune associated interstitial lung disease -nonspecific interstitial pneumonitis, pulmonary arterial hypertension, PFO on TTE, COPD and chronic hypoxemia requiring 8 L at rest and 15 L with ambulation at home. The patient is currently admitted with lower abdominal pain and had no respiratory changes suggestive of pneumonia, interstitial lung disease exacerbation, or COPD exacerbation. At this time I agree with continuation of her home pulmonary hypertension meds of tadalafil 40 mg Q day, inhaled trepostinil 12 puffs 4 X day, opsumit 10 mg PO Q day. she continues on her home dose of Anoro Ellipta 62.5-25 at 1 puff q.day. goal saturation is 90-94% and attempt to wean as toelrated. She does appear patient has a urinary tract infection and I recommend holding cell cept for now unitl infection is controlled. discussed with Lizette Vidal, will sign off please call for any questions. History of Present Illness History of Present Illness Consult date: 02/27/21 Requesting physician: Lizette Vidal PA-C Reason for consult: hypoxemia Chief complaint: UTI, COPD, Chronic Respiratory Failure Narrative: this is a new consult for chronic hypoxemic respiratory failure an autoimmune interstitial lung disease 75-year-old woman with a history of autoimmune associated interstitial lung disease/nonspecific interstitial pneumonitis with a positive JUDITH at 1-320 and a positive CCP at 25.7 maintained on CellCept per [facility]. I have the last clinic note from 12/15/2020. 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 Patient is maintained on [place]oberto dialysis fill, inhaled trip [place] and up [place]. Patient also has a positive PFO on her TTE. Patient was last seen in the Pulmonary Clinic at [place] on 12/15/2020 and her medicines were continued. At that time she had a pulmonary function test that showed a significant decline in her FVC from 3.49-2.92 she had a 6 minutes walk test that demonstrated she required 8 L of oxygen at rest and 15 L with exertion. She had a high-resolution CT scan that showed unchanged lower lobe and peripheral predominant reticulation and ground-glass opacities and unchanged size of bilateral pulmonary nodules. At that time she was going to have a CBC and a CMP and most likely initiate full-dose CellCept therapy. she was continue on her pulmonary hypertension medicines and her Anoro Ellipta. The patient tells me today that her CellCept was increased to 1500 mg b.i.d. Patient presented to the emergency department at [facility] on 02/26/2021 with lower abdominal pain. Patient states she had no change in her respiratory issues. Patient has chronic dyspnea on exertion while walking around her house. Patient denied fever, chills, rigors, change in her phlegm production, hemoptysis or chest pains. Patient had a CT scan of the abdomen that showed emphysema, interstitial lung disease, [id number] bilateral renal atrophy and mild sigmoid diverticulosis. Patient had a urinalysis that demonstrated greater than 75 white blood cells, positive leukocyte esterase negative urine nitrates and 4+ urine Bacteria. Patient was started on ceftriaxone and admitted to the floor. 02/27 Patient states that her lower abdominal pain is improved now. Patient denies any change in her chronic respiratory symptoms. Patient is currently requiring 15 L nasal cannula and a 10 L non-rebreather over her 15 L nasal cannula saturations 91%. Patient tells me that she has been wearing 8 L with rest, ambulation and sleep and that her saturations at home are anywhere fr
[2021-02-27] MEDS: RIVAROXABAN 20 MG TABLET PO (17:23)
[2021-02-28] MEDS: HYDROcodone/acetaminophen (*CRX) 7.5-325 MG TABLET 1 TAB PO ×2 (03:16→09:43)
[2021-02-28 06:00] VITALS: BP 92/53; PULSE 89; RESP 18; TEMP 35.9; O2SAT 95
[2021-02-28] MEDS: LEVOTHYROXINE SODIUM 150 MCG TABLET PO (06:28)
[2021-02-28 07:08] LABS: Hematocrit 30.8 % (37.0-47.0); Hemoglobin 9.4 g/dL (12.0-15.0); Immature Platelet Fraction Pct 7.9 % (0.9-11.2); Mean Corpuscular HGB Conc 30.5 g/dl (32-36); Mean Corpuscular Volume 98.4 fl (80-100); Mean Platelet Volume 11.9 fl (7.4-10.4); Platelet Count Result 142 k/mm3 (150-375); Red Blood Count 3.13 M/mm3 (4.2-5.4); Red Cell Distribution Width 14.8 % (11.5-14.5); White Blood Count 7.9 K/mm3 (4.5-10.0)
[2021-02-28 07:21] LABS: Potassium 3.5 mmol/L (3.4-5.0)
[2021-02-28 07:33] LABS: Anion Gap 8 mmol/L (8-16); Blood Urea Nitrogen 26 mg/dL (7-17); Calcium 8.5 mg/dL (8.4-10.2); Carbon Dioxide 24 mmol/L (22-30); Chloride 100 mmol/L (98-107); Estimated CRCL calculation 45 ml/min; Estimated Glomerular Filt Rate 54; Glucose 95 mg/dL (65-110); Magnesium 1.5 mg/dL (1.6-2.3); Sodium 132 mmol/L (137-145)
[2021-02-28 08:00] VITALS: O2SAT 91
[2021-02-28 09:18] VITALS: O2SAT 87
[2021-02-28] MEDS: UMECLIDINIUM/VILANTEROL 62.5-25 MCG ELLIPTA 1 PUFF INHALATION (09:18)
[2021-02-28] MEDS: guaiFENesin 12 HR 600 MG TABCR 1200 MG PO (09:35)
[2021-02-28] MEDS: FAMOTIDINE 20 MG TABLET PO ×2 (09:36→16:54)
[2021-02-28] MEDS: ATORVASTATIN 10 MG TABLET PO (09:36)
--- NOTE | 2021-02-28 11:25 | PM.CNOR ---
Assessment and Plan Additional Plan Lumbosacral corset Trapeize to bed Pain management per hospitalist donna with her COPD PT to see and mobilize as tolerated F/U with Leb at [facility]. [facility] in [place]. within 2 weeks of d/c. History of Present Illness HPI Consult date: 02/28/21 Consult reason: low back pain Chief complaint: UTI, COPD, Chronic Respiratory Failure Narrative: 75 yo female with chronic COPD noted new onset of LBP. CT scan showed a minimally displaced L4 superior endplate fx. FORMERLY [facility] Past Medical History Medical History Adrenal adenoma Status post resection. Anemia With history of blood transfusion. Brain aneurysm (~1991) Status post craniotomy and coiling. Chronic kidney disease, stage 3 Baseline creatinine ranges between 1.2 and 1.30. Chronic obstructive pulmonary disease Chronic respiratory failure with hypoxia On 6 L nasal cannula. Deep venous thrombosis Dyslipidemia GERD without esophagitis History of renal stone Hypothyroidism Incisional hernia Interstitial lung disease Osteoarthritis Pancreatitis (~05/2017) Pulmonary hypertension Surgical History Surgical History History of cardiac catheterization (~08/14/20) History of cataract extraction (~2014) History of cerebral aneurysm repair (~1992) History of cholecystectomy (~1978) History of knee replacement (~1990) Partial left knee replacement. History of removal of calculus of renal pelvis through percutaneous nephrostomy (~03/2019) History of right breast biopsy History of tonsillectomy (~1957) History of total adrenalectomy 2009 - Right adrenalectomy with pathology demonstrating a benign adrenal adenoma. History of tubal ligation (~1975) Family History Family History Mother Acute myocardial infarction Father Acute myocardial infarction Sibling Acute myocardial infarction Sibling Cerebrovascular accident Sibling History of blood clots Son Bladder cancer Social History Social History Social History: Surrogate decision maker: Jagdish Dia, spouse. Code status: Do not resuscitate. Smoking packs per day: 1 Smoking cigarettes per day: 20.0 Years smoked: 51 Smoking pack-years: 51.00 Smoking status: Former smoker Second hand tobacco smoke exposure: Yes Alcohol intake: never Substance use: never Substance use type: does not use Additional living arrangements comments: Resides with in [place]. They have 3 grown children. 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 Gender identity (if verbalized by the patient): Female Spiritual care concerns: No Meds Home Medications and Allergies Home Medications Medication Instructions Recorded Confirmed Type albuterol sulfate 90 mcg/actuation 2 inhalation INHALATION Q4-6H PRN 03/07/20 02/27/21 History aerosol inhaler gm famotidine 20 mg tablet 20 mg PO BID tablet 03/07/20 02/27/21 History furosemide 20 mg tablet 20 mg PO WEEKLY 03/08/20 02/27/21 History Anoro Ellipta 1 inh INHALATION DAILY 06/08/20 02/27/21 History Opsumit 10 mg PO DAILY 06/08/20 02/27/21 History multivitamin with iron 1 tablet PO HS 06/08/20 02/27/21 History guaifenesin 1,200 mg tablet, 1,200 mg PO Q12H 06/29/20 02/27/21 History extended release 12 hr treprostinil See Rx Instructions .ROUTE .COMPLEX 07/15/20 02/27/21 History mycophenolate mofetil 500 mg tablet 1,500 mg PO Q12H 08/24/20 02/27/21 History hydroxyzine HCl 25 mg tablet 50 mg PO .QHS PRN #60 tablet 10/17/20 02/27/21 Rx potassium chloride 20 meq PO DAILY 11/09/20 02/27/21 History rivaroxaban [Xarelto] 20 mg PO DAILY@1700 #30 tablet 11/11/20 02/27/21 Rx tadalafil (pulm. hypertensio
[2021-02-28 14:00] VITALS: BP 90/50; PULSE 67; RESP 16; TEMP 36.4; O2SAT 90
[2021-02-28] MEDS: RIVAROXABAN 20 MG TABLET PO (16:54)
--- NOTE | 2021-02-28 17:11 | PM.DS ---
DS: Admitting Diagnosis Admitting Diagnosis Admitting Diagnosis: UTI compression fx DS: Discharge Diagnosis Discharge Diagnosis (1) Lumbar compression fracture: Qualifiers: Encounter type: initial encounter Lumbar vertebra fracture level: L4 Qualified Code(s): S32.040A - Wedge compression fracture of fourth lumbar vertebra, initial encounter for closed fracture Code(s): S32.000A - Wedge compression fracture of unspecified lumbar vertebra, initial encounter for closed fracture Status: Acute Assessment and Plan: Patient presented with new onset lower back pain around 10am yesterday. No falls or trauma. She reports pain began after she stood up from a seated position off a stool in the kitchen. Denies saddle anesthesia or other numbness/tingling. She endorses bowel and bladder incontinence which she attributes to her home medications and are chronic for her. -Previous provider discussed with radiologist, revisited abd/pel CT due to back pain seeming musculoskeletal in nature. He notes multiple chronic compression fractures of the lumbar spine but with an acute-appearing L4 compression fracture; chronic severe central canal stenosis. This is likely the cause of her pain. -ortho saw her and recommended a brace and outpt f/u -continue pain management with tylenol when able and norco given for severe pain (2) Acute UTI: Code(s): N39.0 - Urinary tract infection, site not specified Status: Acute Assessment and Plan: Urine cx growing klebsiella and she was sent home on cefdinir -pt to hold her cellcept and call her doctor to see when to restart it. If she, for some reason, cannot get a hold of their office, she should restart in a week (3) Chronic respiratory failure with hypoxia: Code(s): J96.11 - Chronic respiratory failure with hypoxia Status: Acute Assessment and Plan: Patient has autoimmune-associated ILD, nonspecific interstitial pneumonitis and pulmonary arterial hypertension, COPD. -At home she requires 8L high flow NC at rest, 15L high flow NC with activity. - She describes her saturations are normally 82-87% at rest on the 8L and can often drop to low 70s- high 60s with activity. -She follows with pulmonology at [place] - Dr Ahsan Parsons and Dr Molly Betancourt. -Although her history is complex, her respiratory status appears at her baseline. Discussed with Dr Smith. Recommended stopping her CellCept due to acute infection with UTI; continue her home medications as below. He offered her transfer to [place], she declines. Recommends if her respiratory status were to worsen beyond her baseline that she would be best suited in transfer to [place]. -Continue home regimen with: Albuterol PRN, Anoro Ellipta, tadalafil, Opsumit, Tyvaso inhaler at bedside. CellCept held as above. (4) COPD (chronic obstructive pulmonary disease): Qualifiers: COPD type: unspecified COPD Qualified Code(s): J44.9 - Chronic obstructive pulmonary disease, unspecified Code(s): J44.9 - Chronic obstructive pulmonary disease, unspecified Status: Chronic Assessment and Plan: Chronic (5) Pulmonary hypertension: Code(s): I27.20 - Pulmonary hypertension, unspecified Status: Chronic Assessment and Plan: Chronic, as above (6) GERD without esophagitis: Code(s): K21.9 - Gastro-esophageal reflux disease without esophagitis Status: Chronic Assessment and Plan: No acute issues DS: Summary Hospital Course Hospital Course: patient is a 75-year-old female with a medical history of interstitial lung disease who presented emergency room for back pain and some abdominal pain. vitals in the ER were temperature 37.0?, pulse 98, respiratory rate 21, blood pressure 112/63, pulse 92. Initial labs without significant abnormality. UA suspicious for UTI. CT showed: 1. Emphysema, interstitial lung disease and basilar nodules unchanged
== END 2021-02-28 18:13 | disposition home health service (06) | DRG 690 ==
LOC: ANHED 02-27 01:40 → ANH3MEDSUR 02-27 01:57
PROVIDERS: Emergency Medicine; Physician Assistant; Admitting Provider Internal Medicine; Emergency Provider Emergency Medicine; PCP Internal Medicine; Visit Provider Family Medicine
DX: N39.0 Urinary tract infection, site not specified (principal); S32.040A Wedge compression fracture of fourth lumbar vertebra, initial encounter for closed fracture; J96.11 Chronic respiratory failure with hypoxia; J96.12 Chronic respiratory failure with hypercapnia; J84.9 Interstitial pulmonary disease, unspecified; B96.1 Klebsiella pneumoniae [K. pneumoniae] as the cause of diseases classified elsewhere; I27.20 Pulmonary hypertension, unspecified; K21.9 Gastro-esophageal reflux disease without esophagitis; N18.30 Chronic kidney disease, stage 3 unspecified; J43.9 Emphysema, unspecified; I50.9 Heart failure, unspecified; E03.9 Hypothyroidism, unspecified; E78.5 Hyperlipidemia, unspecified; Z66 Do not resuscitate; Z79.899 Other long term (current) drug therapy; Z87.891 Personal history of nicotine dependence; Z99.81 Dependence on supplemental oxygen; Z98.49 Cataract extraction status, unspecified eye
CPT/HCPCS: 36415; 71045; 74176; 80048; 80076; 81001; 83690; 83735; 83880; 84484; 85025; 85027; 85055; 87077; 87086; 87088; 87186; 93005; 94002; 94640; 96361; 96374; 96375; 97161; 97166; 99285; A9270; J0696; J1940; J2270; J2405; J2930; J7030